=== PATIENT | female | born 1990 | race Caucasian/White ===

== ENCOUNTER 2019-08-17 17:35 | Outpatient (RCR) | payer BC, SELFPAY ==
[2019-08-04 20:42] VITALS: BP 137/84; PULSE 84
[2019-08-07 11:29] VITALS: BP 137/78; PULSE 87
[2019-08-11 11:22] VITALS: BP 130/81; PULSE 97
[2019-08-14 12:57] VITALS: BP 131/80; PULSE 89
[2019-08-17 18:20] VITALS: BP 133/84; PULSE 93
== END 2019-08-21 09:58 | disposition home or self-care (01) ==
LOC: ANHOBOP 17:35
PROVIDERS: PCP Internal Medicine; Visit Provider Student in an Organized Health Care Education/Training Program
DX: O36.8130 Decreased fetal movements, third trimester, not applicable or unspecified (principal); Z3A.36 36 weeks gestation of pregnancy; O41.03X0 Oligohydramnios, third trimester, not applicable or unspecified; Z3A.37 37 weeks gestation of pregnancy; Z3A.38 38 weeks gestation of pregnancy
CPT/HCPCS: 59025

== ENCOUNTER 2019-08-19 05:52 | Inpatient (IN) | payer BC, SELFPAY ==
--- NOTE | 2019-08-02 14:02 | PC.NURSE ---
PATIENT STATES SHE DOES NOT KNOW IF SHE IS GOING TO HAVE A REPEAT C/S OR DO . PATIENT STATES SHE IS THINKING C/S AT THIS TIME PATIENT INSTRUCTED IF SHE IS A C/S ,SHE WILL NEED TO BE IN OB 2 HOURS BEFORE HER SURGERY TIME,NOTHING TO EAT OR DRINK AFTER MIDNIGHT AND GET PRE-OP LABS DRAWN THE DAY BEFORE SURGERY
[2019-08-19] VITALS (76 sets, daily range): BP systolic 107–157; BP diastolic 51–99; PULSE 64–95; RESP 16–20; TEMP 35.9–37.1; O2SAT 96–100; BMI 37.3
--- NOTE | 2019-08-19 05:52 | LDADM ---
This patient, Norma Benítez, was admitted to Labor/Delivery/Recovery 102 on 08/19/19 at 05:52. Plans for labor, pain management and were discussed with patient. Patient/family oriented to hospital policies and general routines including ID bracelet, bed and alarms, visiting hours, pain management, procedures, bathroom and other care routines, personal items, smoking policy, room service/diet and guest tray routines, security routines, and visiting hours. Patient/Family are encouraged to report perceived risks to care and to ask questions if they do not understand what they are told or what they should do. See OBIX for further documentation.
[2019-08-19 06:49] LABS: Basophils Percent Auto 0.2 % (0.2-1.2); Eosinophils Absolute Auto 0.1 K/mm3 (0-0.3); Eosinophils Percent Auto 0.9 % (0-4.4); Hemoglobin 11.7 g/dL (12.0-15.0); Immature Granulocyte Absolute 0.07 K/mm3 (0.00-0.031); Immature Granulocyte Percent A 0.8 % (0-0.5); Lymphocytes Absolute Auto 1.96 K/mm3 (0.9-3.2); Lymphocytes Percent Auto 21.4 % (18.3-44.2); Mean Corpuscular HGB Conc 32.5 g/dl (32-36); Mean Corpuscular Hemoglobin 27.2 pg (26-34); Mean Corpuscular Volume 83.7 fl (80-100); Mean Platelet Volume 10.8 fl (7.4-10.4); Monocytes Absolute Auto 0.5 K/mm3 (0.1-0.6); Monocytes Percent Auto 5.9 % (2.6-8.5); Neutrophils Absolute Auto 6.5 K/mm3 (1.3-6.7); Neutrophils Percent Auto 70.8 % (45.5-73.1); Platelet Count Result 226 k/mm3 (150-375); Red Cell Distribution Width 14.7 % (11.5-14.5); White Blood Count 9.2 K/mm3 (4.5-10.0)
[2019-08-19] MEDS: LACTATED RINGERS 1,000 ML 125 ML IV CONT ×3 (07:00→16:58)
[2019-08-19] MEDS: OXYTOCIN 30 UNITS/NS 500 ML 30 UNITS/500 ML BAG IV CONT (07:01)
[2019-08-19 07:30] LABS: Rapid Plasma Reagin Non-Reactive (NonReactive)
--- NOTE | 2019-08-19 14:23 | PM.IMHP ---
H&P: HPI History of Present Illness Chief complaint: Induction Narrative: Norma Benítez is a 28 year old female at 39w0d who presents for IOL. Her has been complicated by CHTN on medication, oligohydramnios, and history of previous c/s. She denies LOF, regular ctx or vaginal bleeding. Review of Systems Cardiovascular: Cardiovascular: Denies chest pain, Denies leg edema, Denies palpitations, Denies dyspnea and Denies dyspnea on exertion Respiratory: Respiratory: Denies cough, Denies dyspnea and Denies dyspnea on exertion Gastrointestinal: Gastrointestinal: Denies abdominal pain, Denies constipation, Denies diarrhea, Denies nausea and Denies vomiting Genitourinary: Genitourinary: Denies hematuria, Denies urinary frequency, Denies dysuria, Denies pelvic pain, Denies urinary incontinence and Denies vaginal discharge Neurologic: Reports system reviewed and no additional complaints, except as documented Psychiatric: Psychiatric: Reports no additional psychiatric complaints Endocrine: Endocrine: Denies palpitations [facility] Family History Family History (Updated 08/02/19 @ 13:50 by Mary Barragan RN) Father FH: cholecystectomy Hypertension History of blood clots Grandparent Heart attack FH: cholecystectomy Cancer Hypertension Cerebrovascular accident Mother FH: cholecystectomy Social History Social History Years smoked: 5 Smoking status: Current every day smoker Tobacco type: cigarettes Second hand tobacco smoke exposure: Yes Alcohol intake: never Substance use: never Additional occupation/education comments: front office spec Spiritual care concerns: No Meds Home Medications and Allergies Home Medications Medication Instructions Recorded Confirmed Type labetalol 100 mg PO BID 04/26/19 08/19/19 History Allergies Allergy/AdvReac Type Severity Reaction Status Date / Time No Known Allergies Allergy Verified 08/02/19 13:45 Vital Signs Vital Signs - 24 hr 08/19/19 06:55 08/19/19 07:00 08/19/19 07:15 Temperature 36.4 C L Pulse Rate 91 86 85 Blood Pressure 156/99 H 154/93 H 155/89 H 08/19/19 07:30 08/19/19 07:45 08/19/19 08:00 Temperature Pulse Rate 91 86 86 Blood Pressure 157/96 H 148/88 H 147/90 H 08/19/19 08:15 08/19/19 08:31 08/19/19 08:46 Temperature Pulse Rate 80 78 85 Blood Pressure 154/88 H 153/82 H 144/85 H 08/19/19 09:00 08/19/19 09:15 08/19/19 09:30 Temperature Pulse Rate 85 81 90 Blood Pressure 142/89 H 142/87 H 136/73 08/19/19 09:45 08/19/19 10:00 08/19/19 10:15 Temperature 36.4 C Pulse Rate 87 79 Blood Pressure 141/85 H 146/80 H 08/19/19 10:30 08/19/19 10:45 08/19/19 11:00 Temperature Pulse Rate 80 79 82 Blood Pressure 139/80 145/85 H 146/83 H 08/19/19 11:15 08/19/19 11:30 08/19/19 11:45 Temperature Pulse Rate 84 82 81 Blood Pressure 137/82 146/83 H 145/80 H 08/19/19 12:00 08/19/19 12:15 08/19/19 12:30 Temperature Pulse Rate 80 81 83 Blood Pressure 141/81 H 141/81 H 137/84 08/19/19 12:45 08/19/19 13:00 08/19/19 13:15 Temperature 36.4 C Pulse Rate 84 84 79 Blood Pressure 145/82 H 143/76 H 140/82 Exam Const: General: no acute distress Eyes: EOM: EOMs intact bilaterally Neck: Neck: supple Thyroid: thyroid normal Chest: Breast/axilla inspection: normal inspection of the breasts Breast/axilla palpation: normal palpation of the breasts, normal palpation of the axillae and no axillary lymphadenopathy Resp: Effort & Inspection: normal respiratory effort Auscultation: clear to auscultation bilaterally Cardio: Rate: regular rate Rhythm: regular rhythm GI: Inspection: non-distended GI Palp: Yes Soft to palpation, No Tenderness to palpation present (GI) and No Guarding due to palpation present (GI) Auscultation: normal bowel sounds Other: Gravid, fundus equal to dates : General: No bladder normal to
--- NOTE | 2019-08-19 14:28 | P.PNOB_ITS ---
Pain Control Date/time seen: 08/19/19 15:52 Pain control: tolerating well Pelvic Exam Dilation (cm): 0 station: -3 Amniotic membrane status: Intact Contractions Contraction frequency: 2 Contraction pattern: Regular Status status: Category l Assessment and Plan Pitocin rate (mU/min): 20 Assessment: induction ongoing Plan: Comments: cvx remains closed after 7 hours of pitocin. patient given option of continuing induction versus elecive repeat . pt opted for repeat c- section. risks and benefits discussed with patient. pt consent to proceeding with .
--- NOTE | 2019-08-19 15:28 | WPDANESEPPF ---
Anes - Initial Pre Proc Eval Procedure: Operation Date: 08/19/19 16:30 Proposed Procedures p Section - Rodrigue Montero MD Date/Time: 08/19/19 15:28 Surgeon: Rodrigue Montero MD Pre Op Diagnosis: Induction Patient Data Age: 28 Gender: F Height: 5 ft 7 in Weight: 108 kg Last Vital Signs Temp 36.4 C 08/19/19 13:00 Pulse 79 08/19/19 13:15 BP 140/82 08/19/19 13:15 Allergies Allergy/AdvReac Type Severity Reaction Status Date / Time No Known Allergies Allergy Verified 08/02/19 13:45 Home Medications Medication Instructions Recorded Confirmed Type labetalol 100 mg PO BID 04/26/19 08/19/19 History Laboratory Tests 08/19/19 08/19/19 08/19/19 06:42 06:42 06:42 WBC 9.2 K/mm3 K/mm3 (4.5-10.0) RBC 4.30 M/mm3 M/mm3 (4.2-5.4) Hgb 11.7 g/dL L g/dL (12.0-15.0) Hct 36.0 % L % (37.0-47.0) MCV 83.7 fl fl (80-100) MCH 27.2 pg pg (26-34) MCHC 32.5 g/dl g/dl (32-36) RDW 14.7 % H % (11.5-14.5) Plt Count 226 k/mm3 k/mm3 (150-375) MPV 10.8 fl H fl (7.4-10.4) Immature Gran % (Auto) 0.8 % H % (0-0.5) Neut % (Auto) 70.8 % % (45.5-73.1) Lymph % (Auto) 21.4 % % (18.3-44.2) Dane % (Auto) 5.9 % % (2.6-8.5) Eos % (Auto) 0.9 % % (0-4.4) Baso % (Auto) 0.2 % % (0.2-1.2) Lymph # (Auto) 1.96 K/mm3 K/mm3 (0.9-3.2) Dane # (Auto) 0.5 K/mm3 K/mm3 (0.1-0.6) Eos # (Auto) 0.1 K/mm3 K/mm3 (0-0.3) Baso # (Auto) 0.0 K/mm3 K/mm3 (0.0-0.1) Abs Immat Gran (auto) 0.07 K/mm3 H K/mm3 (0.00-0.031) Absolute Neuts (auto) 6.5 K/mm3 K/mm3 (1.3-6.7) Absolute Nucleated RBC 0.0 K/mm3 K/mm3 (0.0-0.012) Nucleated RBC % 0.0 % % (0.0-0.2) RPR Non-reactive (NonReactive) Blood Type O Positive Antibody Screen Negative Patient hx anesthesia problems: none Family hx anesthesia problems: none PMFSH Past Medical History Medical History Anxiety HTN (hypertension) Surgical History Surgical History History of Hx laparoscopic cholecystectomy Family History Family History Father FH: cholecystectomy Hypertension History of blood clots Grandparent Heart attack FH: cholecystectomy Cancer Hypertension Cerebrovascular accident Mother FH: cholecystectomy Social History Social History Years smoked: 5 Smoking status: Current every day smoker Tobacco type: cigarettes Second hand tobacco smoke exposure: Yes Alcohol intake: never Substance use: never Additional occupation/education comments: desk officer Spiritual care concerns: No Anes - Eval Final PreProcedure Day of Procedure 08/19/19 15:28 Patient weight: obese Heart: regular rate and rhythm Lungs: decreased breath sounds Airway: Mallampati scale class II Neurological: alert and oriented ASA classification: III Emergent: no Anesthetic plan: proceed Anesthesia type and monitoring: regional spinal and standard monitoring Informed Consent: The patient's anesthetic plan and its attendant risks and benefits were discussed with the patient/family/POA. Questions were solicited and answers provided to the satisfaction of the patient/family/POA.
[2019-08-19] MEDS: ceFAZolin 2 GM/D5W 50 ML 2 GM/50 ML BAG IVPB (15:58)
--- NOTE | 2019-08-19 16:53 | PM.PROC ---
Procedure Note - Detailed Date of procedure: 08/19/19 Pre-op diagnosis: Induction at 39wod CHTN oligohydramnios prior c/s x1 Post-op diagnosis: same Procedure performed: repeat low transverse section Description of procedure: The patient was taken to the operating room where epidural anesthesia was found to be adequate. She was then prepped and draped in the usual sterile fashion in the dorsal supine position with a leftward tilt. A Pfannenstiel skin incision was then made with the scalpel and carried through to the underlying layer of fascia. The fascia was then incised in the midline and the incision extended laterally with the Appiah scissors. The superior aspect of the fascia was then grasped with the Julio clamps, elevated, and the underlying rectus muscles dissected off bluntly and sharply. Attention was then turned to the inferior aspect of this incision which, in a similar fashion, was grasped, tented up with the Julio clamps, and the rectus muscles dissected off both bluntly and sharply. The rectus muscles were then in the midline, and the peritoneum identified, tented up, and entered sharply with the Metzenbaum scissors. The peritoneal incision was then extended superiorly and inferiorly with good visualization of the bladder. The bladder blade was then inserted and the vesicouterine peritoneum identified, grasped with the pick-ups and entered sharply with the Metzenbaum scissors. This incision was then extended laterally and the bladder flap created digitally. The bladder blade was then reinserted and the lower uterine segment incised in a low, transverse fashion with the scalpel. The uterine incision was then extended laterally with the bandage scissors. The bladder blade was removed and the ?s head delivered atraumatically. The nose and mouth were suctioned with the bulb suction, and the remainder of the infant was delivered atraumatically. The cord was clamped and cut. The was handed off to the waiting pediatricians (staff). Cord gasses were sent. The placenta was then removed manually, the uterus exteriorized, and cleared of all clots and debris. The uterine incision was repaired with 0 vicryl in a running fashion. A second imbricating layer of 0-monocryl was used to closed the hysterotomy. The uterus was returned to the abdomen. The uterus was then reinspected to ensure hemostasis as were all subfascial tissues. The peritoneum was closed using 3-0 vicryl in a running fashion. The fascia was reapproximated with 0 vicryl in a running fashion. The incision was irrigated with a copious amound of normal saline. The subcutaneous tissue was reapproximated using 3-0 Vicryl in a running fashion. The skin was closed with 4-0 vicryl. The patient tolerated the procedure well. Sponge, lap and needle counts were correct times three. The patient was taken to the recovery room in stable condition. Anesthesia: epidural Surgeon: Rodrigue Montero MD Estimated blood loss (mL): 445 IV fluids (mL): 1,000 Urine output (mL): 50 Drains: No Packing: No Pathology: none sent Complications: No immediate complications Condition: stable Disposition: floor ( ) Findings: normal appearing uterus and fallopian tubes and ovaries bilaterally
--- NOTE | 2019-08-19 18:00 | SUR.PHASEI ---
pt complains cold and shaky. bairhugger applied. called Eufemia Jennings [employer] reported use of bairhugger. demerol order received
[2019-08-19] MEDS: MEPERIDINE HCL INJ 50 MG/ML AMPUL 12.5 MG IV PUSH (18:15)
[2019-08-19] MEDS: OXYTOCIN 30 UNITS/NS 500 ML 30 UNITS/500 ML BAG 125 UNITS IV CONT (18:15)
--- NOTE | 2019-08-19 19:25 | SUR.PHASEI ---
Pt stable and moved to PP via stretcher. Baby to stay in nursery. Report updated with Nichole Serrano on pt status and QBL. No further questions. NATE Lilly
[2019-08-19] MEDS: LABETALOL HCL 100 MG TABLET PO (20:57)
[2019-08-19] MEDS: IBUPROFEN 600 MG TABLET PO (20:57)
[2019-08-19] MEDS: DEXTROSE 5%/0.45% SOD CHL 1,000 ML 125 ML IV CONT (22:00)
[2019-08-20] VITALS (7 sets, daily range): BP systolic 110–133; BP diastolic 65–70; PULSE 70–87; RESP 16–18; TEMP 36.4–36.7; O2SAT 98–100
[2019-08-20 06:10] LABS: Basophils Percent Auto 0.2 % (0.2-1.2); Eosinophils Absolute Auto 0.1 K/mm3 (0-0.3); Eosinophils Percent Auto 0.5 % (0-4.4); Hemoglobin 10.7 g/dL (12.0-15.0); Immature Granulocyte Absolute 0.06 K/mm3 (0.00-0.031); Immature Granulocyte Percent A 0.6 % (0-0.5); Lymphocytes Absolute Auto 2.37 K/mm3 (0.9-3.2); Mean Corpuscular HGB Conc 32.4 g/dl (32-36); Mean Corpuscular Hemoglobin 27.1 pg (26-34); Mean Corpuscular Volume 83.5 fl (80-100); Mean Platelet Volume 11.1 fl (7.4-10.4); Monocytes Absolute Auto 0.7 K/mm3 (0.1-0.6); Neutrophils Absolute Auto 7.1 K/mm3 (1.3-6.7); Neutrophils Percent Auto 68.7 % (45.5-73.1); Platelet Count Result 220 k/mm3 (150-375); Red Blood Count 3.95 M/mm3 (4.2-5.4); Red Cell Distribution Width 14.3 % (11.5-14.5); White Blood Count 10.3 K/mm3 (4.5-10.0)
--- NOTE | 2019-08-20 06:58 | PM.OBPNVD ---
OB - PN: Subj Subjective Date/time seen: 08/20/19 06:58 Interval history: Patient doing well this AM. she is ambulating without difficulty. She is tolerating PO. She reports adequate pain control. Her bleeding is normal and she reports normal lochia. She denies fever, chills, N/V. She has not yet passed flatus. Patient comments: no complaints and pain well controlled; no flatus present OB - PN: Obj Data Labs CBC & Chem 7: 08/20/19 05:05 Labs: Laboratory Results - last 24 hr 08/19/19 08/19/19 08/20/19 06:42 06:42 05:05 WBC 10.3 H RBC 3.95 L Hgb 10.7 L Hct 33.0 L MCV 83.5 MCH 27.1 MCHC 32.4 RDW 14.3 Plt Count 220 MPV 11.1 H Immature Gran % (Auto) 0.6 H Neut % (Auto) 68.7 Lymph % (Auto) 23.0 [place] % (Auto) 7.0 Eos % (Auto) 0.5 Baso % (Auto) 0.2 Lymph # (Auto) 2.37 [place] # (Auto) 0.7 H Eos # (Auto) 0.1 Baso # (Auto) 0.0 Abs Immat Gran (auto) 0.06 H Absolute Neuts (auto) 7.1 H Absolute Nucleated RBC 0.0 Nucleated RBC % 0.0 RPR Non-reactive Blood Type O Positive Antibody Screen Negative OB - PN A/P Plan day: 1 Plan: routine care Comments: patient doing well this AM advance diet as tolerated H/H stable continue routine PP care plan for circumcision tomorrow Time Spent With Patient Time: Total time spent is greater than 50% in coordination of care (as documented) at patient's floor/unit and/or counseling patient: Time with patient: less than 15 minutes Review of Systems Constitutional: Constitutional: Reports no additional constitutional complaints Cardiovascular: Cardiovascular: Reports no additional cardiovascular complaints Respiratory: Respiratory: Reports no additional respiratory complaints Gastrointestinal: Gastrointestinal: Reports no additional gastrointestinal complaints Genitourinary: Genitourinary: Reports no additional female genitourinary complaints Exam Const: General: comfortable and no acute distress Resp: Effort & Inspection: normal respiratory effort Auscultation: clear to auscultation bilaterally Cardio: Rate: regular rate GI: GI Palp: Yes Soft to palpation and Yes Tenderness to palpation present (GI) (appropriately tender around incision ) Auscultation: normal bowel sounds Other: fundus firm and below umbilicus Incision C/D/I Urinary Catheter: Urinary Catheter: urine clear Psych: Appearance: grossly normal Mental Status: mental status grossly normal Affect: normal affect
--- NOTE | 2019-08-20 07:00 | PM.OBDSVD ---
DS: Diagnosis Admitting Diagnosis Admitting Diagnosis: Unspecified pre-existing hypertension complicating , unspecified trimester OB - DS: Summary OB Procedures : None OB Procedures Intrapartum: OB Procedures: : None Peripartum Data Infant Delivery Method: Section Procedures: Procedures Operation Date: 08/19/19 16:30 Actual Procedures Side Surgeon p Section Not Applicable Rodrigue Montero MD complications: none Status at Discharge Functional status at discharge: independent ambulation Overall status at discharge: patient is progressing back to baseline Time Spent with Patient Time attestation: Total time spent providing and/or coordinating discharge services: Time spent: Less than 30 minutes Exam Const: General: comfortable and no acute distress Resp: Effort & Inspection: normal respiratory effort Auscultation: clear to auscultation bilaterally Cardio: Rate: regular rate GI: Inspection: non-distended GI Palp: Yes Soft to palpation, No Firmness to palpation present (GI), Yes Tenderness to palpation present (GI) (mild tenderness over incision ) and No Guarding due to palpation present (GI) Auscultation: normal bowel sounds Psych: Appearance: grossly normal Mental Status: mental status grossly normal DS: Data Data Completed and Pending Labs on day of discharge: Labs from last 24 hours 08/20/19 08/19/19 08/19/19 05:05 06:42 06:42 WBC 10.3 H RBC 3.95 L Hgb 10.7 L Hct 33.0 L MCV 83.5 MCH 27.1 MCHC 32.4 RDW 14.3 Plt Count 220 MPV 11.1 H Immature Gran % (Auto) 0.6 H Neut % (Auto) 68.7 Lymph % (Auto) 23.0 Andrew % (Auto) 7.0 Eos % (Auto) 0.5 Baso % (Auto) 0.2 Lymph # (Auto) 2.37 Andrew # (Auto) 0.7 H Eos # (Auto) 0.1 Baso # (Auto) 0.0 Abs Immat Gran (auto) 0.06 H Absolute Neuts (auto) 7.1 H Absolute Nucleated RBC 0.0 Nucleated RBC % 0.0 RPR Non-reactive Blood Type O Positive Antibody Screen Negative Discharge Plan Discharge Attending physician on discharge: Rodrigue Montero Consulting providers: Abdiaziz Conde Discharging Clinician: Rodrigue Montero Patient Disposition: Home, Self-Care Activity: may shower, no straining, as tolerated and pelvic rest Diet: regular Discharge Instructions: Education: Mom and Baby Guide Given to: Mother Follow-Up: Call your delivering provider's office for an appointment to be seen in: 4 Weeks Mom and baby should come to the [facility] for the follow-up appointment. Appointment Date/Time: Friday, August 23, 2019 at 11:00 am What to expect at your follow-up visit: Blood Pressure Check Physical Assessment Call [phone] if you are unable to keep your appointment time. BREAST CARE: 1. Wear a snug supportive bra. 2. For engorgement discomfort: Bottle Feeding: A. May apply ice packs ABDOMINAL INCISION: (if applicable) 1. Allow incision to air dry 2. Do NOT use lotions for powders on your incision 3. When showering, allow soap and water to run over the incision, but do not wash incision EPISIOTOMY/PERINEAL CARE: 1. Until bleeding stops, use your chantelle bottle after urinating 2. Change your pad frequently throughout the day 3. You may take sitz baths several times a day (fill your bathtub with warm water and soak for 20 minutes.) Do NOT bathe in the water 4. No tub baths until seen by your physician - You may shower ACTIVITY: 1. Rest as much as possible. 2. Do not exercise or lift anything heavier than your baby (such as laundry or other children.) 3. Avoid stairs or driving as much as possible. 4. Do not put anything into the vagina. No douching, tampons, or sexual activity until seen by physician. NOTIFY PHYSICIAN IF YOU HAVE ANY QUESTIONS OR IF ANY OF THE FOLLOWING SYMPTOMS OCCUR: 1. If your incision becomes red, swollen,
[2019-08-20] MEDS: IBUPROFEN 600 MG TABLET PO ×2 (08:40→14:30)
[2019-08-20] MEDS: LABETALOL HCL 100 MG TABLET PO ×2 (08:41→21:18)
[2019-08-20] MEDS: DOCUSATE SODIUM 100 MG CAPSULE PO ×2 (08:41→14:31)
[2019-08-20] MEDS: MULTIVIT/MIN/PREN/FOL AC/IRON TABLET 1 TAB PO (08:41)
--- NOTE | 2019-08-20 11:15 | WPDANLDPN2 ---
Anes-Prog Note L&D Date/Time: 08/20/19 11:15 Comfortable throughout: section Neuraxial method: spinal Epidural/Spinal procedure site: clean & non-tender Neuro status: Neuro function grossly intact. Cardiovascular status: normal Airway patency: baseline Mental status: baseline Post-Op hydration status: normal Vital Signs: Last Vital Signs Temp 36.4 C L 08/20/19 07:55 Pulse 83 08/20/19 08:41 Resp 18 08/20/19 07:55 BP 124/70 08/20/19 07:55 Pulse Ox 99 08/20/19 07:55 Pain score (VAS): 0/10. Patient resting up to chair at time of assessment, appears comfortable. I/O: Intake & Output 08/19/19 08/20/19 08/20/19 23:59 07:59 15:59 Intake Total 1475 1865 Output Total 725 1600 Balance 750 265 Post-procedural complaints: none Patient feedback: Patient satisfied with anesthetic care.
--- NOTE | 2019-08-20 11:16 | WPDANLDNPN2 ---
Anes-Prog Note L&D-Neuraxial Date/Time: 08/20/19 11:16 Neuraxial medications: intrathecal PF morphine Opiod-related complaints: none Patient feedback: Patient satisfied with post-operative pain management.
[2019-08-21] MEDS: IBUPROFEN 600 MG TABLET PO ×4 (01:02→22:09)
--- NOTE | 2019-08-21 06:29 | P.PNOB_ITS ---
OB - PN: Subj Subjective Date/time seen: 08/21/19 06:29 Patient comments: no complaints and pain well controlled baby status: doing well and nursing well OB - PN: Obj Data Labs CBC & Chem 7: 08/20/19 05:05 OB - PN A/P Plan day: 2 Plan: routine care Time Spent With Patient Time: Total time spent is greater than 50% in coordination of care (as raudel mario) at patient's floor/unit and/or counseling patient: Time with patient: less than 15 minutes Review of Systems Review of Systems: All systems reviewed & are unremarkable except as noted in HPI and below Exam Const: General: no acute distress Eyes: General: appearance normal, both eyes and all related structures Neck: Neck: supple and no JVD Thyroid: thyroid normal Resp: Effort & Inspection: normal respiratory effort Auscultation: clear to auscultation bilaterally Cardio: Rate: regular rate Rhythm: regular rhythm GI: Inspection: incision (cdi/fundus firm) : General: Yes bladder normal to palpation External Female Exam: normal external appearance Speculum Exam - Vagina: normal vaginal discharge and No vaginal bleeding Speculum Exam - Cervix: nontender Bimanual exam- vagina & uterus: bladder normal to palpation and No Cervical tenderness present OB/external & speculum: No vaginal bleeding Skin: General skin exam: no rashes or lesions noted Extrem: General: normal to inspection and no edema Psych: Mental Status: mental status grossly normal Affect: normal affect
[2019-08-21 08:00] VITALS: BP 132/74; PULSE 84; RESP 18; TEMP 36.6; O2SAT 98
[2019-08-21 09:05] VITALS: PULSE 84
[2019-08-21] MEDS: LABETALOL HCL 100 MG TABLET PO ×2 (09:05→22:09)
[2019-08-21] MEDS: DOCUSATE SODIUM 100 MG CAPSULE PO ×2 (09:05→15:45)
--- NOTE | 2019-08-21 12:59 | PC.NURSE ---
Patient was given the opportunity to view the discharge video Mother & Baby Care, The First Two Weeks and to ask questions. Patient declined viewing the video and has been given the mother/baby guide for home reference.
[2019-08-21 20:10] VITALS: BP 141/85; PULSE 88; RESP 16; TEMP 36.7
[2019-08-21 22:09] VITALS: PULSE 88
--- NOTE | 2019-08-22 06:43 | P.DS_ITS ---
DS: Diagnosis Admitting Diagnosis Admitting Diagnosis: Unspecified pre-existing hypertension complicating pregnanc y, unspecified trimester term DS: Summary Time Spent with Patient Time attestation: Total time spent providing and/or coordinating discharge services: Exam Const: General: no acute distress Eyes: General: appearance normal, both eyes and all related structures Neck: Neck: supple and no JVD Thyroid: thyroid normal Resp: Effort & Inspection: normal respiratory effort Auscultation: clear to auscultation bilaterally Cardio: Rate: regular rate Rhythm: regular rhythm GI: Inspection: non-distended GI Palp: Yes Soft to palpation, No Tenderness to palpation present (GI) and No Guarding due to palpation present (GI) Auscultation: normal bowel sounds : General: Yes bladder normal to palpation External Female Exam: normal external appearance Speculum Exam - Vagina: normal vaginal discharge and No vaginal bleeding Speculum Exam - Cervix: nontender Bimanual exam- vagina & uterus: bladder normal to palpation and No Cervical tenderness present OB/external & speculum: No vaginal bleeding Skin: General skin exam: no rashes or lesions noted Extrem: General: normal to inspection and no edema Psych: Mental Status: mental status grossly normal Affect: normal affect Discharge Plan Discharge Attending physician on discharge: Rodrigue Montero Discharging Clinician: Rodrigue Montero Patient Disposition: Home, Self-Care Activity: may shower, no straining, as tolerated and pelvic rest Diet: regular Discharge Instructions: call or return for temperature >100.4, bleeding >2 pads/hr for 2 hrs, pain not controlled with medications, signs/symptoms of mastitis Patient Instructions: Antibiotic Form Stand Alone Forms: General Discharge Information Follow-up/Referrals: Rodrigue Montero MD [Physician] - Discharge Medications: New hydrocodone-acetaminophen 5-325 mg Tablet 1 tab PO Q3H PRN (Reason: Moderate Pain (4-6)) Qty: 30 RF: 0 docusate sodium 100 mg Capsule 100 mg PO BID Qty: 60 RF: 0 acetaminophen [Mapap (acetaminophen)] 325 mg Tablet 650 mg PO Q6H PRN (Reason: Mild Pain (1-3)) Qty: 30 RF: 0 ibuprofen 600 mg Tablet 600 mg PO Q6H PRN (Reason: Cramping) Qty: 30 RF: 0 Continued labetalol 100 mg tablet 100 mg PO BID RF: 0 Date of admission: 08/19/19 05:52 Primary Care Provider: Lisseth,Maral Admitting Provider: Rodrigue Montero Attending physician on admission: Rodrigue Montero
[2019-08-22] MEDS: IBUPROFEN 600 MG TABLET PO (07:36)
[2019-08-22 08:05] VITALS: BP 147/87; PULSE 79; RESP 18; TEMP 37.4; O2SAT 99
[2019-08-22 09:25] VITALS: PULSE 79
[2019-08-22] MEDS: DOCUSATE SODIUM 100 MG CAPSULE PO (09:25)
[2019-08-22] MEDS: LABETALOL HCL 100 MG TABLET PO (09:25)
--- NOTE | 2019-08-22 10:06 | PC.NURSE ---
Patient viewed the discharge video Mother & Baby Care, The First Two Weeks . Patient was given the opportunity and encouraged to ask questions. Patient verbalized understanding of information shared and has been given the mother/baby guide for home reference.
[2019-08-23 11:03] VITALS: BP 124/77; PULSE 93; RESP 18; TEMP 36.8
== END 2019-08-22 11:08 | disposition home or self-care (01) | DRG 787 ==
LOC: ANHOB2 08-22 10:22 → ANHLDR 08-22 20:11 → ANHOB2 08-22 20:11
PROVIDERS: Admitting Provider Student in an Organized Health Care Education/Training Program; PCP Internal Medicine; Visit Provider Obstetrics & Gynecology
PROC: 10D00Z1 Extraction of Products of Conception, Low, Open Approach (ICD-10-PCS; CPT 59514; principal; 2019-08-19 16:30)
DX: O10.92 Unspecified pre-existing hypertension complicating childbirth (principal); O41.03X0 Oligohydramnios, third trimester, not applicable or unspecified; Z37.0 Single live birth; Z3A.39 39 weeks gestation of pregnancy; O34.211 Maternal care for low transverse scar from previous cesarean delivery; O99.334 Smoking (tobacco) complicating childbirth; F17.210 Nicotine dependence, cigarettes, uncomplicated; O99.344 Other mental disorders complicating childbirth; F41.9 Anxiety disorder, unspecified; O99.214 Obesity complicating childbirth; E66.9 Obesity, unspecified
CPT/HCPCS: 36415; 85025; 86592; 86850; 86900; 86901; A9270; J0131; J0690; J2175; J2274; J2370; J2405; J2590; J7120

== ENCOUNTER 2019-09-17 20:28 | Emergency (ER) | payer BC, SELFPAY ==
[2019-09-17 20:30] VITALS: BP 156/105; PULSE 90; RESP 16; TEMP 36.6; O2SAT 100
[2019-09-17 21:41] LABS: Basophils Percent Auto 0.2 % (0.2-1.2); Eosinophils Absolute Auto 0.2 K/mm3 (0-0.3); Eosinophils Percent Auto 1.9 % (0-4.4); Hematocrit 39.4 % (37.0-47.0); Hemoglobin 12.4 g/dL (12.0-15.0); Immature Granulocyte Absolute 0.03 K/mm3 (0.00-0.031); Immature Granulocyte Percent A 0.3 % (0-0.5); Lymphocytes Absolute Auto 2.95 K/mm3 (0.9-3.2); Mean Corpuscular HGB Conc 31.5 g/dl (32-36); Mean Corpuscular Hemoglobin 26.4 pg (26-34); Mean Corpuscular Volume 83.8 fl (80-100); Mean Platelet Volume 9.9 fl (7.4-10.4); Monocytes Absolute Auto 0.5 K/mm3 (0.1-0.6); Monocytes Percent Auto 5.3 % (2.6-8.5); Neutrophils Absolute Auto 6.4 K/mm3 (1.3-6.7); Neutrophils Percent Auto 63.3 % (45.5-73.1); Platelet Count Result 352 k/mm3 (150-375); Red Cell Distribution Width 14.2 % (11.5-14.5); White Blood Count 10.2 K/mm3 (4.5-10.0)
[2019-09-17 21:51] LABS: Alanine Aminotransferase 26 U/L (4-35); Albumin Level 4.4 g/dL (3.5-5.1); Alkaline Phosphatase 112 U/L (38-126); Aspartate Amino Transferase 26 U/L (14-36); Bilirubin,Total 0.3 mg/dL (0.2-1.3); Blood Urea Nitrogen 11 mg/dL (7-17); Calcium 9.1 mg/dL (8.4-10.2); Carbon Dioxide 23 mmol/L (22-30); Chloride 106 mmol/L (98-107); Estimated CRCL calculation 113 ml/min; Estimated Glomerular Filt Rate > 60; Glucose 94 mg/dL (65-105); Potassium 4.1 mmol/L (3.4-5.0); Sodium 137 mmol/L (137-145)
[2019-09-17 22:04] LABS: Add Urine Microscopic? YES; Appearance Urine Clear (Clear); Bacteria Urine Trace /hpf; Bilirubin Urine Negative (Negative); Blood Urine 3+ (Negative); Color Urine Red (Yellow); Glucose Urine UA Negative (Negative); Ketones Urine Negative (Negative); Leukocyte Esterase Ur Negative LEU/UL (Negative); Nitrate Urine Negative (Negative); Protein Urine 2+ mg/dL (Negative); RBC Urine >75 /hpf (0-2); Specific Grav Ur 1.006 (1.001-1.035); Squamous Epithelial Cell Urine Occasional /hpf (Few); Urobilinogen Urine Negative mg/dL (<2.0); WBC Urine 0-3 /hpf
[2019-09-17 23:37] VITALS: BP 142/76; PULSE 88; RESP 16; O2SAT 97
--- NOTE | 2019-09-18 00:13 | ED.ABDPAIN ---
HPI - Abdominal Pain General Chief Complaint: Vaginal Bleeding Stated Complaint: bleeding post baby History of Present Illness HPI narrative: Patient presents with her partner for uterine bleeding. She had a 1 month ago, and had a large clot passed tonight. Since it past her bleeding has slowed down remarkably. Her OB had given her a package of control pills and told her to take 1. She credits the pill for her decreased bleeding. She currently has no distress. Related Data Home Medications Medication Instructions Recorded Confirmed labetalol 100 mg PO BID 04/26/19 08/19/19 drospirenone (contraceptive) 09/17/19 09/17/19 [Slynd] Allergies Allergy/AdvReac Type Severity Reaction Status Date / Time No Known Allergies Allergy Verified 09/17/19 20:34 Review of Systems Review of Systems: Narrative: Patient was walking out the door was unable to get a full review of systems only that she had no pain. 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 Course Vital Signs Vital signs: Vital Signs Temperature 97.9 F 09/17/19 20:30 Pulse Rate 90 09/17/19 20:30 Respiratory Rate 16 09/17/19 20:30 Blood Pressure 156/105 H 09/17/19 20:30 Pulse Oximetry 100 09/17/19 20:30 Temperature 97.9 F 09/17/19 20:30 Pulse Rate 88 09/17/19 23:37 Respiratory Rate 16 09/17/19 23:37 Blood Pressure 142/76 H 09/17/19 23:37 Pulse Oximetry 97 09/17/19 23:37 MDM - Abdominal Pain MDM Narrative Medical decision making narrative: The patient decided not to wait for a full evaluation, but I was able to meet her briefly and apologize for the delay. Lab Data Result diagrams: 09/17/19 21:32 09/17/19 21:32 Labs: Lab Results 09/17/19 09/17/19 09/17/19 Range/Units 21:32 21:32 21:32 WBC 10.2 H (4.5-10.0) K/mm3 RBC 4.70 (4.2-5.4) M/mm3 Hgb 12.4 (12.0-15.0) g/dL Hct 39.4 (37.0-47.0) % MCV 83.8 (80-100) fl MCH 26.4 (26-34) pg MCHC 31.5 L (32-36) g/dl RDW 14.2 (11.5-14.5) % Plt Count 352 D (150-375) k/mm3 MPV 9.9 (7.4-10.4) fl Immature Gran % (Auto) 0.3 (0-0.5) % Neut % (Auto) 63.3 (45.5-73.1) % Lymph % (Auto) 29.0 (18.3-44.2) % Dent % (Auto) 5.3 (2.6-8.5) % Eos % (Auto) 1.9 (0-4.4) % Baso % (Auto) 0.2 (0.2-1.2) % Lymph # (Auto) 2.95 (0.9-3.2) K/mm3 Dent # (Auto) 0.5 (0.1-0.6) K/mm3 Eos # (Auto) 0.2 (0-0.3) K/mm3 Baso # (Auto) 0.0 (0.0-0.1) K/mm3 Abs Immat Gran (auto) 0.03 (0.00-0.031) K/mm3 Absolute Neuts (auto) 6.4 (1.3-6.7) K/mm3 Absolute Nucleated RBC 0.0 (0.0-0.012) K/mm3 Nucleated RBC % 0.0 (0.0-0.2) % Sodium 137 (137-145) mmol/L Potassium 4.1 (3.4-5.0) mmol/L Chloride 106 (98-107) mmol/L Carbon Dioxide 23 (22-30) mmol/L BUN 11 (7-17) mg/dL Creatinine 0.80 (0.7-1.0) mg/dL Estim
== END 2019-09-18 00:20 | disposition left against medical advice (07) ==
PROVIDERS: Emergency Provider Emergency Medicine; PCP Internal Medicine
DX: O72.2 Delayed and secondary postpartum hemorrhage (principal); O10.93 Unspecified pre-existing hypertension complicating the puerperium; O99.335 Smoking (tobacco) complicating the puerperium; F17.210 Nicotine dependence, cigarettes, uncomplicated
CPT/HCPCS: 36415; 80053; 81001; 85025; 86850; 86900; 86901; 99283; 99284

== ENCOUNTER 2019-09-19 00:52 | Day surgery (SDC) | payer BC, SELFPAY ==
[2019-09-18 15:40] VITALS: BMI 36.3
--- NOTE | 2019-09-18 16:30 | P.HP_ITS ---
H&P: HPI History of Present Illness Chief complaint: Post Bleeding Narrative: Norma Benítez is a 28 year old female who is 4 weeks out from a section is admitted for suction D&C secondary to suspected retained clots. She has been bleeding all solid mal size clots ultrasound shows some vascular bleeding in the uterine lining. Risks and benefits were reviewed in full Review of Systems Review of Systems: All systems reviewed & are unremarkable except as noted in HPI and below PMFSH Past Medical History Medical History Anxiety HTN (hypertension) Surgical History Surgical History History of Hx laparoscopic cholecystectomy Family History Family History Father FH: cholecystectomy Hypertension History of blood clots Grandparent Heart attack FH: cholecystectomy Cancer Hypertension Cerebrovascular accident Mother FH: cholecystectomy Social History Social History Years smoked: 5 Smoking status: Current every day smoker Tobacco type: cigarettes Second hand tobacco smoke exposure: Yes Alcohol intake: never Substance use: never 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 Gender identity (if verbalized by the patient): Female Spiritual care concerns: No Meds Home Medications and Allergies Home Medications Medication Instructions Recorded Confirmed Type labetalol 100 mg PO BID 04/26/19 09/18/19 History drospirenone (contraceptive) 1 tablet PO DAILY 09/17/19 09/18/19 History [Slynd] Allergies Allergy/AdvReac Type Severity Reaction Status Date / Time No Known Allergies Allergy Verified 09/18/19 15:28 Exam Const: General: no acute distress Eyes: General: appearance normal, both eyes and all related structures Neck: Neck: supple and no JVD Thyroid: thyroid normal Resp: Effort & Inspection: normal respiratory effort Auscultation: clear to auscultation bilaterally Cardio: Rate: regular rate Rhythm: regular rhythm GI: Inspection: non-distended GI Palp: Yes Soft to palpation, No Tenderness to palpation present (GI) and No Guarding due to palpation present (GI) Auscultation: normal bowel sounds : General: Yes bladder normal to inspection External Female Exam: normal external appearance Speculum Exam - Vagina: normal appearance of the vagina and vaginal bleeding Speculum Exam - Cervix: Cervical os open Bimanual exam- vagina & uterus: non-tender Bimanual Exam- Adnexa, other: no masses Skin: General skin exam: no rashes or lesions noted Extrem: General: normal to inspection and no edema Psych: Mental Status: mental status grossly normal Affect: normal affect Assessment and Plan Additional Plan impression: bleeding: 4 weeks Plan: Suction dilatation curettage
--- NOTE | 2019-09-19 06:45 | WPDHPUPDATE1 ---
History and Physical Update Update Date/Time: 09/19/19 06:45 History and Physical has been reviewed, including an updated exam of the patient. There are NO changes in the patient's condition. Risks, benefits, and alternatives have been discussed and questions answered. Patient agrees to proceed with procedure.
[2019-09-19 10:42] VITALS: BP 139/88; PULSE 96; RESP 20; TEMP 35.9; O2SAT 100
--- NOTE | 2019-09-19 10:47 | P.PNAN_ITS ---
Anes - Initial Pre Proc Eval Procedure: Operation Date: 09/19/19 13:00 Proposed Procedures p Suction Dilation and Curettage - Palmer Khalil MD Date/Time: 09/19/19 10:47 Surgeon: Palmer Khalil MD Pre Op Diagnosis: Post Bleeding Patient Data Age: 28 Gender: F Height: 5 ft 7 in Weight: 105.23 kg Allergies Allergy/AdvReac Type Severity Reaction Status Date / Time No Known Allergies Allergy Verified 09/18/19 15:28 Home Medications Medication Instructions Recorded Confirmed Type labetalol 100 mg PO BID 04/26/19 09/18/19 History drospirenone (contraceptive) 1 tablet PO DAILY 09/17/19 09/18/19 History [Slynd] hydrocodone-acetaminophen [[place]] 1 tablet PO Q4H PRN #20 tablet 09/19/19 Rx Patient hx anesthesia problems: none Family hx anesthesia problems: none PMFSH Past Medical History Medical History (Updated 09/19/19 @ 10:47 by Abdiaziz Conde MD) Anxiety HTN (hypertension) Hx of migraines Surgical History Surgical History History of Hx laparoscopic cholecystectomy Family History Family History Father FH: cholecystectomy Hypertension History of blood clots Grandparent Heart attack FH: cholecystectomy Cancer Hypertension Cerebrovascular accident Mother FH: cholecystectomy Social History Social History Years smoked: 5 Smoking status: Current every day smoker Tobacco type: cigarettes Second hand tobacco smoke exposure: Yes Alcohol intake: never Substance use: never 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 Questions were solicited and answers provided to the satisfaction of the patient/family/POA.
[2019-09-19] MEDS: LACTATED RINGERS 1,000 ML 30 ML IV CONT (10:50)
[2019-09-19 11:20] VITALS: BP 126/75; PULSE 93; RESP 14; O2SAT 97
--- NOTE | 2019-09-19 11:24 | PM.PROC ---
Procedure Note - Detailed Date of procedure: 09/19/19 Pre-op diagnosis: Post Bleeding Surgeon: Palmer Khalil MD Postop diagnosis: bleeding Procedure: Suction dilatation curettage EBL: 50cc Anesthesia: IV sedation and local Findings: Clots and possible tissue consistent with retained placenta in a Complications: None Description of procedure: The patient was prepped draped in normal sterile fashion placed in the dorsal lithotomy position. Under excellent IV sedation weighted speculum placed in posterior fornix of vagina. Anterior lip of the cervix was grasped with a single-tooth tenaculum 2.5cc of 1% xylocaine anesthesia placed at 2, 4, 8, 10:00 a.m. in the cervix. Uterus sounded to 12cm. Serial dilatation fragmented dilators performed followed by passage of the 10. Curved suction curette. Tissue and clots were noted and removed without difficulty. When a good grating sound was heard the instruments removed. All sponge, needle, instrument counts were correct. There were no immediate complications
[2019-09-19 11:50] VITALS: BP 133/73; PULSE 83; RESP 14
[2019-09-19 12:20] VITALS: BP 136/75; PULSE 80; RESP 14
[2019-09-19 12:47] VITALS: BP 126/75; PULSE 93; RESP 14
== END 2019-09-19 12:50 | disposition home or self-care (01) ==
PROVIDERS: PCP Internal Medicine; Visit Provider Obstetrics & Gynecology
PROC: (CPT 59160; principal; 2019-09-19 13:00)
DX: O72.2 Delayed and secondary postpartum hemorrhage (principal); I10 Essential (primary) hypertension; F41.9 Anxiety disorder, unspecified; F17.210 Nicotine dependence, cigarettes, uncomplicated; E66.9 Obesity, unspecified; Z68.36 Body mass index [BMI] 36.0-36.9, adult
CPT/HCPCS: 59160; 88305; A9270; J2250; J2704; J3010; J7120

== ENCOUNTER 2019-11-17 09:56 | Outpatient (CLI) | payer BC, SELFPAY | END 2019-11-17 09:57 | disposition home or self-care (01) | PROVIDERS: PCP Internal Medicine; Visit Provider Allergy & Immunology | DX: J06.0 Acute laryngopharyngitis (principal) | CPT/HCPCS: 87081; 87880 ==

== ENCOUNTER 2020-01-15 09:59 | Outpatient (CLI) | payer BC, SELFPAY ==
[2020-01-15 10:14] LABS: Basophils Percent Auto 0.4 % (0.2-1.2); Eosinophils Absolute Auto 0.1 K/mm3 (0-0.3); Eosinophils Percent Auto 1.4 % (0-4.4); Hematocrit 42.7 % (37.0-47.0); Hemoglobin 13.6 g/dL (12.0-15.0); Immature Granulocyte Absolute 0.02 K/mm3 (0.00-0.031); Immature Granulocyte Percent A 0.2 % (0-0.5); Lymphocytes Absolute Auto 2.39 K/mm3 (0.9-3.2); Lymphocytes Percent Auto 23.2 % (18.3-44.2); Mean Corpuscular HGB Conc 31.9 g/dl (32-36); Mean Corpuscular Hemoglobin 24.2 pg (26-34); Mean Corpuscular Volume 76.1 fl (80-100); Monocytes Absolute Auto 0.5 K/mm3 (0.1-0.6); Monocytes Percent Auto 4.8 % (2.6-8.5); Neutrophils Absolute Auto 7.2 K/mm3 (1.3-6.7); Platelet Count Result 348 k/mm3 (150-375); Red Blood Count 5.61 M/mm3 (4.2-5.4); Red Cell Distribution Width 16.1 % (11.5-14.5); White Blood Count 10.3 K/mm3 (4.5-10.0)
[2020-01-15 12:36] LABS: Alanine Aminotransferase 33 U/L (4-35); Albumin Level 4.5 g/dL (3.5-5.1); Alkaline Phosphatase 144 U/L (38-126); Anion Gap 8 mmol/L (8-16); Aspartate Amino Transferase 28 U/L (14-36); Bilirubin,Total 0.7 mg/dL (0.2-1.3); Blood Urea Nitrogen 7 mg/dL (7-17); Calcium 9.5 mg/dL (8.4-10.2); Carbon Dioxide 24 mmol/L (22-30); Chloride 106 mmol/L (98-107); Estimated Glomerular Filt Rate > 60; Glucose 93 mg/dL (65-105); Potassium 4.6 mmol/L (3.4-5.0); Sodium 138 mmol/L (137-145)
[2020-01-15 13:27] LABS: Iron 56 ug/dL (37-170)
[2020-01-15 13:37] LABS: Percent Iron Saturation 11 % (20-50)
[2020-01-15 15:52] LABS: Lactate Dehydrogenase 437 U/L (313-618)
[2020-01-20 16:14] LABS: Soluble Transferrin Receptor 1.55 mg/L (0.76-1.76)
== END 2020-01-15 10:00 | disposition home or self-care (01) ==
PROVIDERS: PCP Internal Medicine; Visit Provider Internal Medicine Hematology & Oncology
DX: D64.9 Anemia, unspecified (principal)
CPT/HCPCS: 36415; 80053; 82607; 82728; 83540; 83550; 83615; 84238; 85025

== ENCOUNTER 2024-03-11 13:45 | Outpatient (CLI) | payer OTHER, SELFPAY ==
--- NOTE | ~2024-03-11 | US_ITS ---
EXAMINATION: US thyroid DATE: 03/11/2024 14:20 INDICATION: Nontoxic goiter. TECHNIQUE: Multiple ultrasound images of the thyroid were obtained. COMPARISON: None. FINDINGS: The right thyroid lobe measures 5.2 x 1.9 x 2.1 cm. The left thyroid lobe measures 4.3 x 1.7 x 1.7 c m. There is diffusely hypoechoic and heterogeneous with increased vascularity. No discrete nodule. IMPRESSION: 1. 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 Reviewed, dictated and finalized at location A. EATION ASSISTANT
== END 2024-03-11 13:46 | disposition home or self-care (01) ==
PROVIDERS: PCP Internal Medicine; Visit Provider Internal Medicine Endocrinology, Diabetes & Metabolism
DX: E04.9 Nontoxic goiter, unspecified (principal)
CPT/HCPCS: 76536

== ENCOUNTER 2024-12-12 10:47 | Outpatient (CLI) | payer BC, SELFPAY ==
--- OUTSIDE RECORDS SUMMARY | 2024-05-26 04:40 | XMS_ITS ---
Author Organization [facility] Address [address] [place] [address] Care Team Providers Care Lime Kiln Worker Name Role Phone Hannah Alamo Primary Care Provider REASON FOR VISIT 6 week f/u eva Medications Medication SIG (Take, Route, Frequency, Duration) Notes Start Date End Date Status dexAMETHasone 1 MG 1 tab(s) orally at 1 0 pm night before 8 am cortisol for 1 days 02/25/2024 Not-Taking Ergocalciferol 1.25 MG (56823 UT) 1 capsule Orally weekly for 84 days 04/21/2024 Unknown Escitalopram Oxalate 10 MG 1 tab(s) oral ly once a day Unknown Propranolol HCl 10 MG 1 tab(s) orally 2 times a day Unknown amLODIPine Besylate 5 MG 1 tab(s) orally once a day Unknown Unithroid 75 MCG 1 tablet in the morning on an empty stomach Orally Once a day for 90 days 04/21/2024 Unknown [place] Thyroid 15 MG 1 tab(s) orally onc e a day Unknown Encounters Encounter Location Date Provider Diagnosis [facility] - Hannah Alamo [address] [address] 05/26/2024 Hannah Alamo Plan Of Treatment No Information Progress Notes * Norma FERRARIDOB:1990 (34 yo F)Acc No.[id number]:05/26/2024 Progress Notes Patient: Norma YAO Provider: Toshia Alamo MD :1990 A ge:33 Y S ex:Female Date:05/26/2024 Address:[address] [place], [place] [address] Subjective: * Chief Complaints: * 1 . 6 week f/u eva. * Medical History: * Medications: N ot-Taking/PRN dexAMETHasone 1 MG Tablet 1 tab(s) orally at 10 pm night before 8 am cortisol , Unknown Propranolol HCl 10 MG Tablet 1 tab(s) orally 2 times a day , Unknown Escitalopram Oxalate 10 MG Tablet 1 tab(s) orally once a day , Unknown amLODIPine Besylate 5 MG Tablet 1 tab(s) orally once a day , Unknown [place] Thyroid(Thyroid) 15 MG Tablet 1 tab(s) orally once a day , Unknown Unithroid(Levothyroxine Sodium) 75 MCG Tablet 1 tablet in the morning on an empty stomach Orally Once a day , Unknown Ergocalciferol 1.25 MG (16403 UT) Capsule 1 capsule Orally weekly Objective: * Vitals: Assessment: Plan: * Treatment: * Billing Information: * Visit Code: * Procedure Codes: * Electronic signature of Chepe Alamo MD on 12/12/2024 at 10:56 AM CDT Sign off status: Pending * Provider: Toshia Alamo MD Date: 0 05/26/2024 Generated for Filipe vanessa/Yue/Ángel on: 0 12/12/2024 10:56 AM CDT
--- OUTSIDE RECORDS SUMMARY | 2024-06-03 08:30 | XMS_ITS ---
Author Organization [facility] Address [address] [place] [address] Care Team Providers Care Hemmer Automatic Name Role Phone Hannah Alamo Primary Care Provider [phone] REASON FOR VISIT 3 Month Follow-up Encounters Encounter Location Date Provider Diagnosis [facility] - Hannah Alamo [address] [place] [address] 06/03/2024 Hannah Alamo Plan Of Treatment No Information Progress Notes * Norma FERRARIDOB:1990 (34 yo F)Acc No.[id number]:06/03/2024 Progress Notes Patient: Norma YAO Provider: Toshia Alamo MD :1990 A ge:33 Y S ex:Female Date:06/03/2024 Address:[address] [place] [address] Subjective: * Chief Complaints: * 1 . 3 Month Follow-up. * Medical History: Objective: * Vitals: Assessment: Plan: * Treatment: * Billing Information: * Visit Code: * Procedure Codes: * Electronic signature of Chepe Alamo MD on 12/12/2024 at 10:55 AM CDT Sign off status: Pending * Provider: Toshia Alamo MD Date: 06/03/2024 Generated for Filipe vanessa/Yue/Sabaitting on: 12/12/2024 10:55 AM CDT
--- OUTSIDE RECORDS SUMMARY | 2024-08-22 09:20 | XMS_ITS ---
Author Organization [facility] Address [address], [place] [id number] Care Team Providers Care Coil Winder Strap Name Role Phone Hannah Alamo Jluis [phone] REASON FOR VISIT Fu sleep study and labs Medications Medication SIG (Take, Route, Frequency, Duration) Notes Start Date End Date Status Propranolol HCl 10 MG Tablet 1 tab(s) or ally 2 times a day Active Escitalopram Oxalate 10 MG Tablet 1 tab(s) orally once a day Active Unithroid 75 MCG Tablet 1 tablet in the morning on an empty stomach Orally Once a day; Duration: 90 days 04/21/2024 Active Ergocalciferol 1.25 MG (70840 UT) Capsule 1 capsule Orally weekly; Duration: 84 days 04/21/2024 Active Olmesartan Medoxomil 20 MG Tablet 1 tablet Orally once a day Active Encounters Encounter Location Date Provider Diagnosis [facility] Dr. Alamo [address] [place] [phone] 08/22/2024 Hannah Alamo Plan Of Treatment Next Appt Details Provider Name:Hannah Alamo, 03:20:00 PM, [address] [place] [address], [phone], History and Physical Notes * HPI (History of Present Illness) Category Sub-Category Detail Notes Category Not es History of Present Illness 33 hyo female comes in for follow up in management and evaluation of hypothyroidism, obesity/ concern for VIKY/sleep apnea found to have MTHFR mutation At last visit in June we continue unithroid 75 mcg daily. We sent for sleep study due to high BMI and snoring and need to start on weight loss management. Progress Notes * Norma FERRARIDOB:1990 (34 yo F)Acc No.[id number]:08/22/2024 Progress Notes Patient: Norma Donovan Provider: Toshia Alamo MD :1990 A ge:33 Y S ex:Female Date:08/22/2024 Address:[address] [place], [place] [address]Sharyn, [facility] [id number] Subjective: * Chief Complaints: * F u sleep study and labs * HPI: H istory of Present Illness: [age] hyo female comes in for follow up in management and evaluation of hypothyroidism, obesity/ concern for VIKY/sleep apnea found to have MTHFR mutation At last visit in June we continue unithroid 75 mcg daily. W e sent for sleep study due to high BMI and snoring and need to start on weight loss management. * Medications: T akingOlmesartan Medoxomil 20 MG Tablet 1 tablet Orally once a day Propranolol HCl 10 MG Tablet 1 tab(s) orally 2 times a day Escitalopram Oxalate 10 MG Tablet 1 tab(s) orally once a day Unithroid 75 MCG Tablet 1 tablet in the morning on an empty stomach Orally Once a day Ergocalciferol 1.25 MG (81394 UT) Capsule 1 capsule Orally weekly Taking [...] Once a day Taking Ergocalciferol 1.25 MG (71815 UT) Capsule 1 capsule Orally weekly Billing Information: * Procedure Codes: * Electronic signature of Chepe Alamo MD on 12/12/2024 at 10:56 AM CDT Sign off status: Pending * Provider: Toshia Alamo MD Date: 08/22/2024 Generated for Filipe vanessa/Yue/Ángel on: 12/12/2024 10:56 AM CDT
--- OUTSIDE RECORDS SUMMARY | 2024-09-16 10:40 | XMS_ITS ---
Author Organization [facility] Address [address] [place], [place] [id number] Care Team Providers Care Last Model Department Supervisor Name Role Phone Hannah Alamo Jluis [phone] REASON FOR VISIT Lab FU Medications Medication SIG (Take, Route, Frequency, Duration) Notes Start Date End Date Status Escitalopram Oxalate 10 MG Tablet 1 tab(s) orally once a day Active Unithroid 75 MCG Tablet 1 tablet in the morning on an empty stomach Orally Once a day; Duration: 90 days 04/21/2024 Active Propranolol HCl 10 MG Tablet 1 tab(s) or ally 2 times a day Active Olmesartan Medoxomil 20 MG Tablet 1 tablet Orally once a day Active Ergocalciferol 1.25 MG (41547 UT) Capsule 1 capsule Orally weekly; Duration: 84 days 04/21/2024 Active Encounters Encounter Location Date Provider Diagnosis [facility] Dr[facility] Alamo [address] [place] [phone] 09/16/2024 Hannah Alamo Plan Of Treatment Next Appt Details Provider Name:Hannah Alamo, 03:20:00 PM, [address] [place] [address], [phone], Progress Notes * Norma FERRARIDOB:1990 (34 yo F)Acc No.[id number]:09/16/2024 Progress Notes Patient: Norma Donovan Provider: Toshia Alamo MD :1990 A ge:33 Y S ex:Female Date:09/16/2024 Address:[address] [place], [place] [id number] Subjective: * Chief Complaints: * L ab FU * Medications: T akingOlmesartan Medoxomil 20 MG Tablet 1 tablet Orally once a day Propranolol HCl 10 MG Tablet 1 tab(s) orally 2 times a day Escitalopram Oxalate 10 MG Tablet 1 tab(s) orally once a day Unithroid 75 MCG Tablet 1 tablet in the morning on an empty stomach Orally Once a day Ergocalciferol 1.25 MG (79310 UT) Capsule 1 capsule Orally weekly Taking [...] Once a day Taking Ergocalciferol 1.25 MG (98172 UT) Capsule 1 capsule Orally weekly * Electronic signature of Chepe Alamo MD on 12/12/2024 at 10:56 AM CDT Sign off status: Pending * Provider: Toshia Alamo MD Date: 0 09/16/2024 Generated for Filipe vanessa/Yue/Ángel on: 0 12/12/2024 10:56 AM CDT
--- OUTSIDE RECORDS SUMMARY | 2024-12-12 10:55 | XMS_ITS | Clinical Summary ---
Author Organization [facility] Address [address] [place] [address] Phone Care Team Providers Care Drug Abuse Social Worker Name Role Phone Maral Montanez MD Primary Care Provider Allergies No known active allergies Medications labetalol (NORMODYNE) 100 mg tablet labetalol 100 mg tablet 9 Active SUMAtriptan (IMITREX) 100 mg tablet sumatriptan 100 mg tablet prn up to 3 tabs in a 24 hour perioud Active doxylamine-pyr idoxine, vit B6, (BONJESTA) 20-20 mg Tab,IR & Delay Rel,Multiphasi c Take 1 Tablet by mouth 2 times daily. 60 Tablet 3 9 Active atorvastatin (LIPITOR) 40 mg tablet every 24 hours. Acti ve ergocalciferol (VITAMIN D2) 50,000 unit capsule ergocalciferol (vitamin D2) 1,250 mcg (50,000 unit) capsule Take 1 capsule WEEKLY for 8 weeks Active ALPRAZolam (XANAX) 0.25 mg tablet alprazolam 0.25 mg tablet TK 1 T PO TID PRN Active ondansetron (ZOFRAN) 4 mg Tablet ondansetron HCl 4 mg tablet PRN Active Active Problems Problem Noted Date Diagnosed Date Microcytic anemia 02/06/2020 Other dietary vitamin B12 deficiency anemia 01/21 Blood pressure, low, incidental finding 09/11/19 19 Immunizations Immunization Administration Dates Next Due (ADACEL/BOOSTRIX)(10 YR UP) TDAP VACCINE, 0.5ML, IM 01/28/2016 INFLUENZA VACCINE QUADRIVALENT 6 MOS UP IM 02/07 INFLUENZA VACCINE QUADRIVALENT 6 MOS UP PF IM Family History Medical History Relation Name Comments Hypertension Father Lung Cancer Maternal Grandfather Prostate Cancer Maternal Grandfather Dementia Maternal Grandmother Healthy Mother Lung Cancer Paternal Grandfather Prostate Cancer Paternal Grandfather Lung Cancer Paternal Grandmother Healthy Son Gerardo Breast Cancer Neg Hx Colon Cancer Neg Hx Ovarian Cancer Neg Hx Relation Name Status Comments Father Alive Maternal Grandfather Maternal Grandmother Alive Mother Alive Paternal Grandfather Paternal Grandmother Son Gerardo Alive Social History Tobacco Use Types Packs/Day Years Used Date Smoking Tobacco: Former Cigarettes 0.5 10 0 12/23/2008 - 12/23/2018 Smokeless Tobacco: Never Alcohol Use Standard Drinks/Week Comments Not Currently 0 (1 standard drink = 0.6 oz pur e alcohol) Comments No Sex and Gender Information Value Date Recorded Sex Assigned at Not on file Legal Sex Female 9:07 AM CDT Gender Identity Not on file Sexual Orientation Not on file Last Filed Vital Signs Vital Sign Reading Time Taken Comments Blood Pressure 124/80 01/15/2020 9:20 AM CDT Pulse 95 01/15/2020 9:20 AM CDT Temperature 36.7 C (98 F) 02/06/2020 9:38 AM CDT Respiratory Rate 22 02/06/2020 9:38 AM CDT Oxygen Saturation 98% 01/15/2020 9:20 AM CDT Inhaled Oxygen Concentration - - Weight 111.2 kg (245 lb 1.6 oz) 01/15/2020 9:20 AM CDT Height 168.9 cm (5' 6.5) 02/06/2020 9:38 AM CDT Body Mass Index 38.97 01/15/2020 9:20 AM CDT Plan of Treatment Health Maintenance Due Date Last Done Comments HPV VACCINES (1 - 3-dose series) 2004 HEPATITIS B VACCINES (1 of 3 - 19+ 3-dose series) 2008 HPV/Cotest (21-29) 2010 HPV/Cotest (30-65) 11/17/2019 CERVICAL CANCER SCREENING 01/06/2022 PAP SMEAR 01/06/2022 01/06/2019 INFLUENZA VACCINE (#1) 2024 01/06/2019, 2017 DTAP/TDAP/TD VACCINES (2 - Td or Tdap) 01/27/2026 Procedures Procedure Name Priority Date/Time Associated Diagnosis Comments CERV/VAG CYTO AGE BASED SCREEN PAP W CT/NG, TRICH Routine 01/06/2019 11:07 AM CDT Well woman exam with routine gynecological exam from Last 3 Months or Most Recently Relevant to Health Maintenance Results * CERV/VAG CYTO AGE BASED SCREEN PAP W CT/NG, TRICH (01/06/2019 11:07 AM CDT) COMMENT (PAP): SEE COMMENT 9 10:22 AM CDT [facility] Comment: This order for age-based cervical cancer and STI screening follows ACOG guidelines(PB 168, 140, ZFU926). See individual assays for performing site location. CLINICAL INFORMATION 01/09/2019 10:22 AM CDT [facility] LAST MENSTRUAL PERIOD Information not provided 01/09/2019 10:22 AM CDT [facility] PREV PAP: Information not provided 01/09/2019 10:22 AM CDT [facility] PREV BX: Information not provided 01/09/2019 10:22 AM CDT [facility] SOURCE Endocervix 01/09/2019 10:22 AM CDT [facility] ADEQUACY: SEE COMMENT 01/09/2019 10:22 AM CDT [facility] Comment: Satisfactory for evaluation. Endocervical/transformation zone component absent. PAP INTERP Negative for intraepithelial lesion or malignancy. 01/09/2019 10:22 AM CDT [facility] CYTOLOGY INFECTION Shift in vaginal mary suggestive of bacterial vaginosis. 01/09/2019 10:22 AM CDT [facility] COMMENT This Pap test has been evaluated with computer assisted technology. 01/09/2019 10:22 AM CDT [facility] COMMERCIAL DEVELOPMENT MANAGER: SEE COMMENT 2018 10:22 AM CDT [facility] Comment: MATT RAY(ASCP) CT screening location: [place] [address] [place], [place] [address] EXPLANATORY NOTE SEE COMMENT 019 10:22 AM CDT [facility] Comment: EXPLANATORY NOTE: The Pap is a screening test for cervical cancer. It is not a diagnostic test and is subject to false negative and false positive results. It is most reliable when a satisfactory sample, regularly obtained, is submitted with relevant clinical findings and history, and when the Pap result is evaluated along with historic and current clinical information. Genital SWAB OF ENDOCERVIX / Unknown Collection / Unknown 01/06/2019 11:07 AM CDT 01/06/2019 3:33 PM CDT Narrative [facility] - 01/09/2019 10:22 AM CDT Performing Organization Information: Site ID: [id number] Name[facility] Address: [address] [address] Director: Ezequiel Rivera D.O., MPH Site ID: [place] [facility] Address: [address] [place] [address] Director: Darren Guaman Min Wagner MD PATHOLOGY/CYTOLOGY ORDERABLE S Final Result [facility] [phone] from Last 3 Months or Most Recently Relevant to Health Maintenance Insurance PREFERRED Care Teams Drug Abuse Social Worker Relationship Specialty Start Date End Date Maral Montanez MD PCP - General Internal Medicine 01/15/20
--- OUTSIDE RECORDS SUMMARY | 2024-12-12 10:55 | XMS_ITS | Clinical Summary ---
Author Organization [facility] Address [address] [place] [address] Care Team Providers Care Gettering Operator Name Role Phone Ronald Renee MD Unavailable [phone] Source Comments [facility],non-owned Affiliates and Associated Physician Practices is amultiple site organization consisting of ambulatory clinics and hospital sitesin [place], [place], [place] and [place]. This disclosure is being madepursuant to the Care Everywhere program and may not contain all information available regarding this patient. Last updated 18.[facility] Allergies Active Allergy Reactions Criticality Noted Date Comments Succinylcholine Other 02/11/2016 Reports that she had all over boy pain for week after Medications * Be aware that medications may not be up to date on this document. Alwaysverify current medications with the patient. labetalol (NORMODYNE; TRANDATE) 200 MG tablet Take 1.5 Tabs by mouth 2 times daily 90 Tab 02/16/2016 Active fluticasone propionate (FLONASE) 50 MCG/ACT nasal sprayIndication s:Acute non-recurrent maxillary sinusitis [place] 2 sprays into each nostril once daily 1 bottles 03/19/2018 Active Active Problems No known active problems Immunizations Immunization Administration Dates Next Due TDAP (7yrs+) 01/28/2016 Family History Medical History Relation Name Comments Hypertension Father Twins Maternal Aunt Labor Mother Cancer Paternal Grandfather Cancer Paternal Grandmother Relation Name Status Comments Father Alive Maternal Aunt Mother Alive Paternal Grandfather Paternal Grandmother Social History Tobacco Use Types Packs/Day Years Used Date Smoking Tobacco: Former Cigarettes Q uit: 06/22/2015 Smokeless Tobacco: Never Alcohol Use Standard Drinks/Week Comments No 0 (1 standard drink = 0.6 oz pur e alcohol) Comments No Sex and Gender Information Value Date Recorded Sex Assigned at Not on file Legal Sex Female 10:17 AM CDT Gender Identity Not on file Sexual Orientation Not on file Last Filed Vital Signs Vital Sign Reading Time Taken Comments Blood Pressure 110/68 03/19/2018 11:58 AM DISTRICT WIRE CHIEF Pulse 76 03/19/2018 11:58 AM DISTRICT WIRE CHIEF Temperature 36.8 C (98.2 F) 03/19/2018 11:58 AM DISTRICT WIRE CHIEF Respiratory Rate 16 03/19/2018 11:58 AM DISTRICT WIRE CHIEF Oxygen Saturation 98% 03/19/2018 11:58 AM DISTRICT WIRE CHIEF Inhaled Oxygen Concentration - - Weight 105.7 kg (233 lb) 03/19/2018 11:58 AM DISTRICT WIRE CHIEF Height 170.2 cm (5' 7) 03/19/2018 11:58 AM DISTRICT WIRE CHIEF Body Mass Index 36.49 03/19/2018 11:58 AM DISTRICT WIRE CHIEF Plan of Treatment Health Maintenance Due Date Last Done Comments HIV SCREENING 2004 HEPATITIS C SCREENING 11/12/2007 HEPATITIS B VACCINE (1 of 3 - 19+ 3-dose series) 2008 HPV VACCINE (1 - 3-dose SCDM series) 2016 COVID-19 VACCINE (1 - 2023-2 5 season) 2023 DEPRESSION SCREENING 04/23/2024 INFLUENZA VACCINE (#1) 2024 DTAP/TDAP/TD VACCINES (2 - T d or Tdap) 01/27/2026 01/28/2016 ZOSTER VACCINE (1 of 2) 11/17/2039 HIB VACCINE Aged Out No longer eligi ble based on patient's age to complete this topic MENINGOCOCCAL (Group B) VACC INE SHARED DECISION-MAKING Aged Out No longer eligibl e based on patient's age to complete this topic MENINGOCOCCAL GROUPS A/C/Y/W VACCINE Aged Out No longer eligible b ased on patient's age to complete this topic PNEUMOCOCCAL VACCINE Aged Out No long er eligible based on patient's age to complete this topic Insurance [facility] [place] [address] * Guarantor: NORMA FERRARI Account Type Relation to Patient Date of Phone Billing Address Personal/Family 1990 [facility], [id number] [place] [address] ON LICENSE OF [facility] Advance Directives * Full Code (Latest Code Status on File) Date Activated Date Inactivated Comments 02/11/2016 7:55 PM 02/14/2016 2:23 PM * Full Code Date Activated Date Inactivated Comments 02/11/2016 1:03 PM 02/11/2016 7:55 PM * Full Code Date Activated Date Inactivated Comments 01/22/2016 9:15 PM 01/22/2016 11:05 PM Care Teams Gettering Operator Relationship Specialty Start Date End Date Ronald Renee MD [address] [place] [address] Gynecology 08/13/15
--- OUTSIDE RECORDS SUMMARY | 2024-12-12 10:56 | XMS_ITS | Patient Health Record ---
Author Organization [facility] Address [address] [facility] [place] [id number] Care Team Providers Care Expressive Art Therapist Name Role Phone Hannah Alamo Unavailable [phone] Migration, Provider Unavailable Unavailable Allergies No Known Allergies Reason For Referral No Information Medications Medication SIG (Take, Route, Frequency, Duration) Notes Start Date End Date Status Unithroid 125 MCG Tablet 1 tablet in the morning on an empty stomach Orally Once a day; Duration: 90 days 11/21/2024 Active Unithroid 75 MCG Tablet 1 tablet in the morning on an empty stomach Orally Once a day; Duration: 90 days 04/21/2024 Active Ergocalciferol 1.25 MG (5000 0 UT) Capsule 1 capsule Orally weekly; Duration: 84 days 04/21/2024 Active Levothyroxine Sodium 125 MCG Tablet 1 tablet in the morning on an empty stomach Orally Once a day; Duration: 90 days 12/01/2024 Active Vitamin D (Ergocalciferol) 1.25 MG (47985 UT) Capsule TAKE 1 CAPSULE BY MOUTH WEEKLY.; Duration: 84 Active Escitalopram Oxalate 10 MG Tablet 1 tab(s) orally once a day Active Liothyronine Sodium 5 MCG Tablet 1 tablet on an empty stomach Orally Once a day; Duration: 90 days 11/21/2024 Active Olmesartan Medoxomil 20 MG Tablet 1 tablet Orally once a day Active Ergocalciferol 1.25 MG (5000 0 UT) Capsule 1 capsule Orally weekly; Duration: 90 days 11/21/2024 Active Propranolol HCl 10 MG Tablet 1 tab(s) or ally 2 times a day Active dexAMETHasone 1 MG Tablet 1 tablet Orall y at 10 pm night before 8 am cortisol; Duration: 1 days 11/21/2024 Active Lisdexamfetamine Dimesylate 20 MG Capsule 1 capsule in the morning Orally Once a day Active Social History Social History Additional Details Category Social Info Options Details Migrated Social History Migrated Social History (Alcohol:):no (Recreational drug use:):no (Smoking:):yes Patient is a: Current Smoker vapes daily, smoker since 2009 Section Notes: caffeine: yes caffeine: yes caffeine: yes caffeine: yes Problems Problem Type SNOMED Code ICD Code Onset Dates Problem Status W/U Status Risk Notes Problem Hypothyroidism (96957121) Hypothyroidism, unspecified (E03.9) Active confirmed Problem 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, 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 confirmed Problem Vitamin D deficiency (78210010) Vitamin D deficiency, unspecified (E55.9) Active confirmed Problem Obesity (181335721) Obesity, unspecified (E66.9) Active confirmed Problem Irregular menstruation (69013092) Irregular menstruation, unspecified (N92.6) Active confirmed Problem Obstructive sleep apnea (22445354) Obstructive sleep apnea (G47.33) Active confirmed Vital Signs Heart Rate 86 /min 11/21/2024 Oximetry 97 % 06/03/2024 Blood pressure diastolic 84 mm Hg 11/21/2024 Weight-kg 128.01 kg 11/21/2024 Height 68 in 11/21/2024 Blood pressure systolic 123 mm Hg 11/21/2024 Weight 282.2 lbs 11/21/2024 BMI 42.9 kg/m2 11/21/2024 Encounters Encounter Location Date Provider Diagnosis [address] [phone] 03/08/2024 Provider Migration Obesity, unspecified E66.[address] Alamo [address] [place] [address] 05/26/[address] Alamo [address] [place] [address] 02/25/2024 Hannah Alamo Hypothyroidism, unspecified E03.9 ; Obesity, unspecified E66.9 ; Dietary counseling and surveillance Z71.3 ; Irregular menstruation, unspecified N92.6 ; Other fatigue R53.83 and Nontoxic goiter, unspecified E04.[address] Alamo [address] [place] [address] 04/21/2024 Hannah Alamo Hypothyroidism, unspecified E03.9 ; Obesity, unspecified E66.9 ; Vitamin D deficiency, unspecified E55.9 ; Vitamin B12 deficiency anemia, unspecified D51.9 and Dietary counseling and surveillance Z71.[address] Alamo [address] [place] [phone] 06/03/2024 Hannah Alamo Hypothyroidism, unspecified E03.9 ; Obesity, unspecified E66.9 ; Obstructive sleep apnea G47.33 and Dietary counseling and surveillance Z71.[address] Alamo [address] [place] [phone] 11/21/2024 Hannah Alamo Hypothyroidism, unspecified E03.9 ; Vitamin D deficiency, unspecified E55.9 ; Obesity, unspecified E66.9 and Dietary counseling and surveillance Z71.[address] [address] 04/20/20[address] [address] 06/17/2024 [address] Alamo [address] [address] 08/21/2024 Hannah Alamo [address] [address] 11/21/2024 Hannah Alamo Hypothyroidism, unspecified E03.9 ; Vitamin D deficiency, unspecified E55.9 and Obesity, unspecified E66.[address] Alamo [address] [place] [phone] 12/01/2024 Hannah Alamo Assessments Encounter Date Diagnosis (ICD Code) Assessment Notes Treatment Notes Treatment Clinical Notes Section Notes 02/25/2024 Hypothyroidism, unspecified (ICD-10 - E03.9) 02/25/2024 Obesity, unspecified (ICD-10 - E66.9) 03/08/2024 Obesity, unspecified (ICD-10 - E66.9) 04/21/2024 Hypothyroidism, unspecified (ICD-10 - E03.9) 04/21/2024 Obesity, unspecified (ICD-10 - E66.9) 06/03/2024 Hypothyroidism, unspecified (ICD-10 - E03.9) 06/03/2024 Obesity, unspecified (ICD-10 - E66.9) 11/21/2024 Hypothyroidism, unspecified (ICD-10 - E03.9) 11/21/2024 Hypothyroidism, unspecified (ICD-10 - E03.9) 11/21/2024 Vitamin D deficiency, unspecified (ICD-10 - E55.9) 02/25/2024 Dietary counseling and surveillance (ICD-10 - Z71.3) 06/03/2024 Obstructive sleep apnea (ICD-10 - G47.33) 11/21/2024 Vitamin D deficiency, unspecified (ICD-10 - E55.9) 04/21/2024 Vitamin D deficiency, unspecified (ICD-10 - E55.9) 04/21/2024 Vitamin B12 deficiency anemia, unspecified (ICD-10 - D51.9) 02/25/2024 Irregular menstruation, unspecified (ICD-10 - N92.6) 11/21/2024 Obesity, unspecified (ICD-10 - E66.9) 11/21/2024 Obesity, unspecified (ICD-10 - E66.9) 11/21/2024 Dietary counseling and surveillance (ICD-10 - Z71.3) Spent 15 minutes preventative counseling patient on dietary recommendations and changes in setting of hyperglycemia- need to restrict refined sugars and processed foods and incorporate up to 150 minutes of moderate level activity weekly. 06/03/2024 Dietary counseling and surveillance (ICD-10 - Z71.3) Spent 15 minutes preventative counseling patient on dietary recommendations and changes in setting of hyperglycemia- need to restrict refined sugars and processed foods and incorporate up to 150 minutes of moderate level activity weekly. 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 2. Palpitations:- Monitor symptoms and report any changes or worsening.- Consider adjusting thyroid medication dosage if palpitations persist. 3. Weight gain:- Encourage a balanced diet focusing on fruits, vegetables, lean meats, and reducing gluten and starch.- Provide a list of recommended foods.- Monitor weight changes and consider further evaluation if no improvement. 4. Insomnia and anxiety:- Encourage maintaining a consistent sleep schedule and practicing good sleep hygiene.- Consider referral to a mental health professional if anxiety persists or worsens. 5. Menstrual irregularities and bleeding:- Continue using Mirena IUD.- Monitor for any changes in bleeding patterns.- Consider alternative control options if bleeding issues persist. 6. Hair loss and acne:- Monitor symptoms and report any changes or worsening.- Consider dermatology referral if no improvement. 7. Bruising and keratosis:- Monitor for any changes in skin condition.- Consider dermatology referral if no improvement. 8. Glucose and cortisol levels:- Order fasting glucose and cortisol tests.- Provide instructions for dexamethasone suppression test.- Evaluate results and consider further evaluation if abnormal. 9. Diet and nutrition:- Encourage a balanced diet focusing on fruits, vegetables, lean meats, and reducing gluten and starch.- Provide a list of recommended foods.- Monitor for any changes in symptoms or overall health. Follow-up in 4-6 weeks to assess response to treatment and any changes in symptoms. Spent 45 minutes preparing to see the patient (ex review of tests/chart), obtaining and / or reviewing separately obtained history, performing a medically appropriate examination and/or evaluation, counseling and educating the patient/family/caregiver, ordering medications, tests, or procedures, referring and communicating with other health career placement specialist, documenting clinical information in the electronic or other health record, independently interpreting results and communicating results to the patient/family/caregiver and care coordinating patient plan. Patient alert and oriented x 4 and aware of discussion noted above and in agreeance to plan in management of hypothyroidism, obesity, irregular cycles, fatigue and goiter. 04/21/2024 Other Assessment and Plan: 1. Hypothyroidism- T4: 0.8 (low), TSH: 15 (high)- Plan: Start Unithroid 75 mcg every other day, then daily after one week. Repeat thyroid panel in 4 weeks. Monitor every 4-6 weeks until stabilized. 2. Vitamin D deficiency- Vitamin D: very low- Plan: Prescribe once-a-week vitamin D supplement. Recheck levels in 6 weeks. 3. Vitamin B12 and folic acid deficiency- B12 and folic acid: very low- Plan: Recommend methylated B12 and folic acid supplement (available in-office or [facility]). Recheck levels in 6 weeks. 4. Possible MTHFR mutation- Plan: Test for MTHFR mutation. If positive, consider aspirin and low-dose statin therapy. Check cholesterol levels. 5. Inflammation- Sed rate and CRP: positive- Plan: Monitor inflammatory markers. Consider further evaluation if no improvement with thyroid treatment. 6. Borderline DEXA level- DEXA: 1.3 (borderline)- Plan: Additional testing to ensure bone health. 7. Sleep apnea risk- Family history and reported snoring- Plan: Monitor for symptoms and consider sleep study if necessary. 8. Diet and lifestyle- Plan: Encourage clean diet, avoiding processed foods and gluten. Provide food list. Reevaluate in 6 weeks. 9. Cortisol testing- ACTH: 14 (pending)- Plan: Perform cortisol saliva test after 3 weeks on Unithroid. Consider adrenal imaging if cortisol levels are high. 10. Ultrasound results- Plan: Obtain ultrasound results from [place]. Follow-up: Schedule a follow-up appointment in 6 weeks. Spent 25 minutes preparing to see the patient (ex review of tests/chart), obtaining and / or reviewing separately obtained history, performing a medically appropriate examination and/or evaluation, counseling and educating the patient/family/caregiver, ordering medications, tests, or procedures, referring and communicating with other health career placement specialist, documenting clinical information in the electronic or other health record, independently interpreting results and communicating results to the patient/family/caregiver and care coordinating patient plan. Patient alert and oriented x 4 and aware of discussion noted above and in agreeance to plan in management of hypothyroidism, obesity, weight management, B12/folate def and vit D def. Spent 15 minutes preventative counseling patient on dietary recommendations and changes in setting of hyperglycemia- need to restrict refined sugars and processed foods and incorporate up to 150 minutes of moderate level activity weekly. Spent 15 minutes preventative counseling patient on dietary recommendations and changes in setting of hyperglycemia- need to restrict refined sugars and processed foods and incorporate up to 150 minutes of moderate level activity weekly. 06/03/2024 Other Assessment and Plan: HypothyroidismPatient's free T4 level has shown improvement from 0.7 to 1.0, yet remains below the desired target of 1.2. The current Synthroid dosage of 75 mcg is deemed insufficient.Increase Synthroid dosage to 100 mcg.Continue supplementation with B12, folic acid, and weekly vitamin D.Schedule thyroid function tests to be repeated in 6 weeks.Arrange a follow-up appointment in 2 months to evaluate progress and adjust treatment as necessary. ObesityAwaiting insurance decision regarding Zepbound for weight loss. Contrave is under consideration as an alternative pending Zepbound's insurance coverage.Order a sleep study to assess for sleep apnea, which may influence insurance approval for Zepbound.Recommend a diet high in protein (80-90g/day) and fiber, focusing on fruits, vegetables, and beans, and advise against the regular intake of bread and starch.Encourage the patient to maintain a high water intake of 4-5 large cups daily.If Zepbound is approved, provide patient education on hydration and dietary adjustments to mitigate gastrointestinal side effects. HypertensionTransition from amlodipine to olmesartan 20 mg daily for blood pressure management has been made.Continue with the prescribed olmesartan dosage.Blood pressure monitoring will be conducted during follow-up visits to assess the effectiveness of the new medication regimen. Suspected Sleep ApneaPatient's has reported snoring, and recent lab results indicate a level of 1.3, suggesting possible minimally autonomous cortisol hypersecretion, which may be linked to sleep apnea.Proceed with ordering a sleep study.Await sleep study results to inform further management decisions and potentially support insurance coverage for weight loss medication. Spent 25 minutes preparing to see the patient (ex review of tests/chart), obtaining and / or reviewing separately obtained history, performing a medically appropriate examination and/or evaluation, counseling and educating the patient/family/caregiver, ordering medications, tests, or procedures, referring and communicating with other health career placement specialist, documenting clinical information in the electronic or other health record, independently interpreting results and communicating results to the patient/family/caregiver and care coordinating patient plan. Patient alert and oriented x 4 and aware of discussion noted above and in agreeance to plan in management of hypothyroidism, obesity/ weight management and concern for VIKY. 11/21/2024 Rigoberto Green, a female patient with a history of hypothyroidism and recent weight gain, presents with concerns about fatigue, physical functioning, and potential gluten sensitivity. HypothyroidismAssessment: Patient is currently on Unithroid 100 mcg daily. Recent labs from October show TSH levels are suboptimal, with the goal being closer to 1.2-1.4. T3 levels were also noted to be low. Patient reports ongoing fatigue and difficulty with physical functioning, which may be related to suboptimal thyroid hormone levels.Plan:- Increase Unithroid to 125 mcg PO daily- Consider adding low-dose T3 therapy as adjunct treatment- Follow up on thyroid function tests after medication adjustment ObesityAssessment: Patient's current weight is 281 lbs, with recent fluctuations noted. Patient reports difficulty with weight management and has been trying to reduce gluten intake and increase water consumption. Recent cholesterol results were reported as a little high. Patient is currently taking Vyvanse, which has helped with some symptoms but may affect appetite.Plan:- Encourage continuation of gluten-free diet and increased water intake- Consider prescribing Zepbound or Wegovy for weight management, pending insurance coverage and further evaluation of fatty liver disease- Recommend ultrasound to evaluate for fatty liver disease- Continue Vyvanse as prescribed (dose not specified)- Encourage regular exercise as tolerated Vitamin D DeficiencyAssessment: Patient reports taking vitamin D supplements but sometimes forgets. Current dosing regimen is weekly, but patient expresses difficulty maintaining consistency.Plan:- Refill vitamin D prescription (weekly dosing)- Educate patient on importance of consistent dosing schedule Suspected HypercortisolismAssessmen t: Previous cortisol tests (overnight swab and 24-hour urine) were borderline. Patient has not completed the oral cortisol suppression test. There is consideration for reassessing cortisol levels, potentially in relation to weight management difficulties.Plan:- Consider scheduling oral cortisol suppression test after hysterectomy to avoid hormone fluctuations- Reassess need for cortisol tiffany based on test results Gynecological IssuesAssessment: Patient reports recent gynecological evaluation revealing freestanding fluid in the uterus, not related to infection. A hysterectomy is being considered due to family history of hormonal breast cancer and desire to discontinue hormonal control (current IUD with progesterone).Plan:- Await scheduling of hysterectomy- Coordinate with geoint analyst regarding timing of procedure and post-operative hormone management Spent 25 minutes preparing to see the patient (ex review of tests/chart), obtaining and / or reviewing separately obtained history, performing a medically appropriate examination and/or evaluation, counseling and educating the patient/family/caregiver, ordering medications, tests, or procedures, referring and communicating with other health career placement specialist, documenting clinical information in the electronic or other health record, independently interpreting results and communicating results to the patient/family/caregiver and care coordinating patient plan. Patient alert and oriented x 4 and aware of discussion noted above and in agreeance to plan in management of hypothyroidism, vit D def, obesity/weight management. Plan Of Treatment Pending Test Test Name Order Date Sleep Study [facility] [id number] 06/03/2024 ultrasound thyroid 02/25/2024 Next Appt Details Provider Name:Hannah Alamo, 03:20:00 PM, [address] [place] [address], [phone], Insurance Providers Payer Name Payer Address Payer Phone Subscriber Number Group Number Insured Name Patient Relationship to Insured Coverage Start Date Coverage End Date [facility] [facility] [address] [place] [address] [id number] Norma Benítez Self - patient is the insured Medical (General) History Medical History History ICD Code hypertension general anxiety depression Surgical History Surgery Date(Month/Year) cholecystectomy 2016 Hospitalization History Reason Date(Month/Year) 2015 2019
--- OUTSIDE RECORDS SUMMARY | 2024-12-12 10:56 | XMS_ITS | Clinical Summary ---
Author Organization [facility] Address [address] [place] [address] Phone Care Team Providers Care Electric Mule Operator Name Role Phone Maral Montanez MD Primary Care Provider Allergies No known active allergies Medications amLODIPine (NORVASC) 10 MG Tablet Take 10 mg by mouth daily. Active Social History Tobacco Use Types Packs/Day Years Used Date Smoking Tobacco: Every Day Cigarettes Smokeless Tobacco: Never Alcohol Use Standard Drinks/Week Comments Never 0 (1 standard drink = 0.6 oz pur e alcohol) Comments Unknown Sex and Gender Information Value Date Recorded Sex Assigned at Not on file Legal Sex Female 7:21 PM CDT Gender Identity Not on file Sexual Orientation Not on file Last Filed Vital Signs Vital Sign Reading Time Taken Comments Blood Pressure 139/93 08/06/2020 10:11 PM CDT Pulse 86 08/06/2020 10:11 PM CDT Temperature 36.7 C (98 F) 08/06/2020 7:24 PM CDT Respiratory Rate 18 08/06/2020 10:11 PM CDT Oxygen Saturation 96% 08/06/2020 10:11 PM CDT Inhaled Oxygen Concentration - - Weight 110.2 kg (243 lb) 08/06/2020 7:24 PM CDT Height 165.1 cm (5' 5) 08/06/2020 7:24 PM CDT Body Mass Index 40.44 08/06/2020 7:24 PM CDT Plan of Treatment Health Maintenance Due Date Last Done Comments Hepatitis C Virus (HCV) Screening 1989 TdaP Immunization 1989 Hepatitis B Immunization (1 of 3 - 19+ 3-dose series) 2008 Pap Smear 2010 Human Papillomavirus (HPV) Immunization (1 - 3-dose SCDM series) 2016 Cervical Cancer Screening (CCS) 11/17/2019 HPV/Cotest 11/17/2019 SARS-COV-2 Immunization ( - season) 2023 05/27/2020, 04/29/2020 Influenza Immunization (#1) 12/22/202401/21, 02/07/2018 Respiratory Syncytial Virus (RSV) Immunization (Adult) (1 - 1-dose 75+ series) 2064 Meningococcal Immunization (ACWY) Aged Out No longer eligible b ased on patient's age to complete this topic Pneumococcal Immunization Combined Aged Out No longer eligible b ased on patient's age to complete this topic Rotavirus Immunization Aged Out No lo nger eligible based on patient's age to complete this topic Insurance [employer]ICA Care Teams Electric Mule Operator Relationship Specialty Start Date End Date Maral Montanez MD [address] [place] [address] [place] [phone] PCP - General Internal Medicine 08/06/20
--- OUTSIDE RECORDS SUMMARY | 2024-12-12 10:57 | XMS_ITS | Encounter Summary ---
Author Organization [facility] Address [address] [place] [address] Care Team Providers Care Clear Coat Sprayer Name Role Phone Bryanna Castro NP Primary Care Provider [phone] Encounter Details Date Type Department Care Team (Late st Contact Info) Description 08/04/2024 MyChart Message Enc [facility] Multispecialty Care - [place] [address] [place] [address] Bryanna Castro NP [address] [place] [address] Sleep Study Social History Tobacco Use Types Packs/Day Years Used Date Smoking Tobacco: Never Passive Smoke Exposure: Never Smokeless Tobacco: Never Alcohol Use Standard Drinks/Week Comments Yes 0 (1 standard drink = 0.6 oz pur e alcohol) socially PHQ-2 Answer Date Recorded Patient Health Questionnaire-2 Score 1 08/07/2024 Comments No Sex and Gender Information Value Date Recorded Sex Assigned at Female 06/02/2024 8:28 AM BRUSH PAINTER Legal Sex Female 9:13 PM CDT Gender Identity Female 06/02/2024 8:28 AM BRUSH PAINTER Sexual Orientation Straight 06/02/2024 8: 28 AM BRUSH PAINTER documented as of this encounter Functional Status * Over the past 2 weeks, how often have you been bothered by any of the following problems? Question Answer Date of Assessment Author Status Little interest or pleasure in doing things Several days 08/07/2024 11:15 AM CDT Parisa Tafoya MA Act carlos Feeling down, depressed, or hopeless Not at all 08/07/2024 11:15 AM Parisa Farley MA Active Patient Health Questionnaire-2 Score 1 08/07/2024 11:15 AM Parisa Farley MA Active * Question Answer Date of Assessment Author Status Trouble falling or staying asleep, or sleeping too much Nearly every day 08/07/2024 11:15 AM Parisa Farley MA Active Feeling tired or having little energy More than half the days 08/07/2024 11:15 AM Parisa Farley MA Active Poor appetite or overeating Nearly every day 08/07/2024 11:15 AM Parisa Farley MA Active Feeling bad about yourself - or that you are a failure or have let yourself or your family down Several days 08/07/2024 11:15 AM Parisa Farley MA Active Trouble concentrating on things, such as reading the newspaper or watching television Not at all 08/07/2024 11:15 AM Parisa Farley MA Active Moving or speaking so slowly that other people could have noticed? Or the opposite - being so fidgety or restless that you have been moving around a lot more than usual. Not at all 08/07/2024 11:15 AM Parisa Farley MA Active Thoughts that you would be better off or hurting yourself in some way Not at all 08/07/2024 11:15 AM Parisa Farley MA Active Patient Health Questionnaire-9 Score 10 08/07/2024 11:15 AM Parisa Farley MA Active * If you checked off any problems on this questionnaire so far, Question Answer Date of Assessment Author Status How difficult have these problems made it for you to do your work, take care of things at home, or get along with other people? Somewhat difficult 08/07/2024 11:15 AM Parisa Farley MA Active * Over the last 2 weeks, how often have you been bothered by any of the following problems? Question Answer Date of Assessment Author Status Feeling nervous, anxious, or on edge 0 08/07/2024 11:16 AM Parisa Farley MA Act carlos Not being able to stop or control worrying 0 08/07/2024 11:16 AM CDT Parisa Tafoya MA Ac tive Worrying too much about different things 0 08/07/2024 11:16 AM Parisa Farley MA Ac tive Trouble relaxing 0 08/07/2024 11:16 AM Parisa Farley MA Active Being so restless that it is hard to sit still 1 08/07/2024 11:16 AM Parisa Farley M A Active Becoming easily annoyed or irritable 3 08/07/2024 11:16 AM Parisa Farley MA Act carlos Feeling afraid as if something awful might happen 0 08/07/2024 11:16 AM Parisa Farley MA Act carlos HAWA-7 Total Score 4 08/07/2024 11:16 AM Parisa Farley MA Active documented as of this encounter Plan of Treatment Upcoming Encounters Date Type Department Care Team (Late st Contact Info) Description 02/23/2025 1:20 PM BRUSH PAINTER Office Visit [facility] Multispecialty Care [place] [address] [place] [address] Bryanna Castro NP [address] [place] [address] documented as of this encounter Visit Diagnoses Not on filedocumented in this encounter Care Teams Clear Coat Sprayer Relationship Specialty Start Date End Date Bryanna Castro NP [address] [place] [address] PCP - General NURSE PRACTITIONER 01/21/24 documented as of this encounter
--- OUTSIDE RECORDS SUMMARY | 2024-12-12 10:57 | XMS_ITS | Clinical Summary ---
Author Organization [facility] [address] Address [facility] [place] [address] Care Team Providers Care Awning Craftsperson Name Role Phone Goldy Mclaughlin MD Primary Care Provider + Palmer Pereira MD Unavailable [phone] Allergies Active Allergy Reactions Criticality Noted Date Comments Succinylcholine Nausea & Vomiting Low 02/11/2016 Reports that she had all over boy pain for week after Medications ALPRAZolam (XANAX) 0.25 mg tablet alprazolam 0.25 mg tablet TK 1 T PO TID PRN Active amLODIPine (NORVASC) 10 mg tablet Take 1 tablet (10 mg total) by mouth daily 2 Active atomoxetine (STRATTERA) 25 mg capsule atomoxetine 25 mg capsule Active atorvastatin (LIPITOR) 40 mg tablet atorvastatin 40 mg tablet TAKE 1 TABLET BY MOUTH EVERY DAY Active doxylamine-pyr idoxine, vit B6, 20-20 mg tablet,IR & delay rel,biphasic Take 1 tablet by mouth 2 (two) times a day 9 Active ergocalciferol (VITAMIN D) 50,000 unit capsule ergocalciferol (vitamin D2) 1,250 mcg (50,000 unit) capsule Take 1 capsule WEEKLY for 8 weeks Active fluticasone propionate (FLONASE) 50 mcg/actuation nasal spray Administer 2 sprays into affected nostril(s) daily 8 Active labetaloL (NORMODYNE,TRA NDATE) 200 mg tablet Take 300 mg by mouth 2 (two) times a day 6 Active Vyvanse 40 mg capsule Take 1 capsule (40 mg total) by mouth daily 2 Active ondansetron (ZOFRAN) 4 mg tablet ondansetron HCl 4 mg tablet PRN Active SUMAtriptan (IMITREX) 100 mg tablet sumatriptan 100 mg tablet prn up to 3 tabs in a 24 hour perioud 0 Active Active Problems Problem Noted Date Diagnosed Date Microcytic anemia 02/06/2020 Other dietary vitamin B12 deficiency anemia 01/21 Hypertension 09/25/2018 Migraine 09/25/2018 Obesity 09/25/2018 Tobacco dependence syndrome 09/25/2018 Blood pressure, low, incidental finding 09/11/19 19 Social History Tobacco Use Types Packs/Day Years Used Date Smoking Tobacco: Never Smokeless Tobacco: Never Tobacco Cessation:Counseling Given: Not Answered Personal Safety Answer Date Recorded Have you ever been in or are you currently in a harmful physical or emotional relationship or is someone making you feel afraid or unsafe? Denies 10/20/2023 Comments Unknown Sex and Gender Information Value Date Recorded Sex Assigned at Not on file Legal Sex Female 10:33 AM CDT Gender Identity Not on file Sexual Orientation Not on file Obstetrics History Last Filed Vital Signs Vital Sign Reading Time Taken Comments Blood Pressure 136/87 10/20/2023 12:51 AM CDT Pulse 88 10/20/2023 12:51 AM CDT Temperature 36.4 C (97.5 F) 10/20/2023 12:51 AM CDT Respiratory Rate 16 10/20/2023 12:51 AM CDT Oxygen Saturation 99% 10/20/2023 12:51 AM CDT Inhaled Oxygen Concentration - - Weight 117.9 kg (260 lb) 10/20/2023 12:51 AM CDT Height 170.2 cm (5' 7) 10/20/2023 12:51 AM CDT Body Mass Index 40.72 10/20/2023 12:51 AM CDT Plan of Treatment Health Maintenance Due Date Last Done Comments Cervical Cancer Screening 1989 Depression Screening 1989 Hepatitis C Screening 1989 Varicella Vaccines (1 of 2 - 13+ 2-dose series) 2002 Hepatitis B Screening 11/17/2007 Regular Well Visit/Exam 18-64 11/17/2007 HPV Vaccines (1 - 3-dose SCD M series) 2016 Covid-19 Vaccine (2023-2 5 season) 2023 05/27/2020, 04/29/2020 Influenza Vaccine (#1) 2024 9, 01/06/2019, 02/07/2018 DTaP/Tdap/Td Vaccine (2 - Td or Tdap) 01/27/2026 01/28/2016 Pneumococcal vaccine <65 Aged Out No longer eligible based on patient's age to complete this topic Insurance [facility]PPO Address: [address] [address] [facility] Address: [address] [address] [place] [address] Care Teams Awning Craftsperson Relationship Specialty Start Date End Date Goldy Mclaughlin MD [address] [address] PCP - General Internal Medicine 02/18/22 Palmer Pereira MD [address] [place] [address] 02/18/22
--- OUTSIDE RECORDS SUMMARY | 2024-12-12 10:57 | XMS_ITS | Patient Health Record ---
Author Organization [facility] Address [address] [address] Care Team Providers Care Coin Machine Supervisor Name Role Phone Hannah Alamo Primary Care Provider [phone] Migration, Provider Unavailable Unavailable Reason For Referral No Information Medications Medication SIG (Take, Route, Frequency, Duration) Notes Start Date End Date Status dexAMETHasone 1 MG 1 tab(s) orally at 1 0 pm night before 8 am cortisol for 1 days 02/25/2024 Not-Taking Unithroid 75 MCG 1 tablet in the morning on an empty stomach Orally Once a day for 90 days 04/21/2024 Unknown Ergocalciferol 1.25 MG (54380 UT) 1 capsule Orally weekly for 84 days 04/21/2024 Unknown Escitalopram Oxalate 10 MG 1 tab(s) oral ly once a day Unknown Propranolol HCl 10 MG 1 tab(s) orally 2 times a day Unknown [employer] Thyroid 15 MG 1 tab(s) orally onc e a day Unknown amLODIPine Besylate 5 MG 1 tab(s) orally once a day Unknown Social History Tobacco Use: Social History Observation Description Date Details (start date - stop date) Current Smoker NA - NA Smoking: Question Answer Notes Patient is a: Current Smoker vapes daily, smo ker since 2009 Section Notes: caffeine: yes caffeine: yes Problems Problem Type SNOMED Code ICD Code Onset Dates Problem Status W/U Status Risk Notes Problem Vitamin D deficiency (14672136) Vitamin D deficiency, unspecified (E55.9) Active confirmed Problem Hypothyroidism (14383024) Hypothyroidism, unspecified (E03.9) Active confirmed Problem Obesity (888318921) Obesity, unspecified (E66.9) Active confirmed Problem 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 [employer] [facility] [address] [place] [address] 04/21/2024 Hannah Alamo Hypothyroidism, unspecified E03.9 ; Obesity, unspecified E66.9 ; Vitamin D deficiency, unspecified E55.9 ; Vitamin B12 deficiency anemia, unspecified D51.9 and Dietary counseling and surveillance Z71.3 [facility] [employer] [facility] [place] [address] 06/03/2024 Hannah Alamo [address] [address] 03/08/2024 Provider Migration Obesity, unspecified E66.9 [facility] [employer] [facility] [address] [place] [address] 02/25/2024 Hannah Alamo Hypothyroidism, unspecified E03.9 ; Obesity, unspecified E66.9 ; Dietary counseling and surveillance Z71.3 ; Irregular menstruation, unspecified N92.6 ; Other fatigue R53.83 and Nontoxic goiter, unspecified E04.[address] [facility] [address] [place] [address] 04/20/2024 Hannah Alamo Assessments Encounter Date Diagnosis (ICD Code) Assessment Notes Treatment Notes Treatment Clinical Notes Section Notes 04/21/2024 Hypothyroidism, unspecified (ICD-10 - E03.9) 04/21/2024 Obesity, unspecified (ICD-10 - E66.9) 03/08/2024 Obesity, unspecified (ICD-10 - E66.9) 02/25/2024 Hypothyroidism, unspecified (ICD-10 - E03.9) 02/25/2024 Obesity, unspecified (ICD-10 - E66.9) 04/21/2024 Vitamin D deficiency, unspecified (ICD-10 - E55.9) 02/25/2024 Dietary counseling and surveillance (ICD-10 - Z71.3) 04/21/2024 Vitamin B12 deficiency anemia, unspecified (ICD-10 - D51.9) 02/25/2024 Irregular menstruation, unspecified (ICD-10 - N92.6) 02/25/2024 Other fatigue (ICD-10 - R53.83) 04/21/2024 Dietary counseling and surveillance (ICD-10 - Z71.3) 02/25/2024 Nontoxic goiter, unspecified (ICD-10 - E04.9) 02/25/2024 Other Assessment and Plan: 1. Pradip's Thyroiditis:- Continue [employer] Thyroid as prescribed.- Schedule thyroid ultrasound to [...] examination and/or evaluation, counseling and educating the patient/family/care attendant, ordering medications, tests, or procedures, referring and communicating with other health patient care director, documenting clinical information in the electronic or other health record, independently interpreting results and communicating results to the patient/family/care attendant and care coordinating patient plan. Patient alert [...] Ultrasound results- Plan: Obtain ultrasound results from [place]. Follow-up: Schedule a follow-up appointment in 6 weeks. Spent 25 minutes preparing to see the patient (ex review of tests/chart), obtaining and / or reviewing separately obtained history, performing a medically appropriate examination and/or evaluation, counseling and educating the patient/family/care attendant, ordering medications, tests, or procedures, referring and communicating with other health patient care director, documenting clinical information in the electronic or other health record, independently interpreting results and communicating results to the patient/family/care attendant and care coordinating patient plan. Patient alert [...] 150 minutes of moderate level activity weekly. Plan Of Treatment Pending Test Test Name Order Date ultrasound thyroid 02/25/2024 Medical (General) History Surgical History Surgery Date(Month/Year) cholecystectomy 2016 Hospitalization History Reason Date(Month/Year) 2015 2019
--- OUTSIDE RECORDS SUMMARY | 2024-12-12 10:57 | XMS_ITS | Encounter Summary ---
Author Organization [facility] Address [address] [place] [address] Care Team Providers Care Bulb Brander Name Role Phone Bryanna Castro NP Primary Care Provider [phone] Encounter Details Date Type Department Care Team (Late st Contact Info) Description 02/07/2024 [facility] Electronic Materialshart Message Enc [facility] Multispecialty [facility] - [address] [place] [address] Bryanna Castro, ASSISTANT PRODUCT MANAGER [address] [facility] [address] [place] [address] Propranolol Social History Tobacco Use Types Packs/Day Years Used Date Smoking Tobacco: Never Passive Smoke Exposure: Never Smokeless Tobacco: Never Alcohol Use Standard Drinks/Week Comments Yes 0 (1 standard drink = 0.6 oz pur e alcohol) socially Comments No Sex and Gender Information Value Date Recorded Sex Assigned at Female 06/02/2024 8:28 AM JANITORIAL SERVICES SUPERVISOR Legal Sex Female 9:13 PM CDT Gender Identity Female 06/02/2024 8:28 AM JANITORIAL SERVICES SUPERVISOR Sexual Orientation Straight 06/02/2024 8: 28 AM JANITORIAL SERVICES SUPERVISOR documented as of this encounter Plan of Treatment Upcoming Encounters Date Type Department Care Team (Late st Contact Info) Description 02/23/2025 1:20 PM JANITORIAL SERVICES SUPERVISOR Office Visit [facility] Medical [facility] Multispecialty Care - [place] [address] [place] [address] Bryanna Castro, ASSISTANT PRODUCT MANAGER [address] [facility] [address] [place], [place] [id number] documented as of this encounter Visit Diagnoses Not on filedocumented in this encounter Care Teams Bulb Brander Relationship Specialty Start Date End Date Bryanna Castro, ASSISTANT PRODUCT MANAGER [address] [facility] [address] [place] [address] PCP - General NURSE PRACTITIONER 01/21/24 documented as of this encounter
--- OUTSIDE RECORDS SUMMARY | 2024-12-12 10:57 | XMS_ITS | Encounter Summary ---
Author Organization [facility] Address [address] [place] [address] Care Team Providers Care Boiler Fireman Name Role Phone Bryanna Castro NP Primary Care Provider [phone] Encounter Details Date Type Department Care Team (Latest Contact Info) Description 03/14/2024 CareView Communicationshart Message [facility] - [address] [place], [place] [id number] Bryanna Castro, VICE PRESIDENT INVESTOR RELATIONS [address] [place], [place] [id number] Cortisol Test Results Social History Tobacco Use Types Packs/Day Years Used Date Smoking Tobacco: Never Passive Smoke Exposure: Never Smokeless Tobacco: Never Alcohol Use Standard Drinks/Week Comments Yes 0 (1 standard drink = 0.6 oz pur e alcohol) socially Comments No Sex and Gender Information Value Date Recorded Sex Assigned at Female 06/02/2024 8:28 AM LOW PRESSURE KETTLE OPERATOR Legal Sex Female 9:13 PM CDT Gender Identity Female 06/02/2024 8:28 AM LOW PRESSURE KETTLE OPERATOR Sexual Orientation Straight 06/02/2024 8: 28 AM LOW PRESSURE KETTLE OPERATOR documented as of this encounter Plan of Treatment Upcoming Encounters Date Type Department Care Team (Late st Contact Info) Description 02/23/2025 1:20 PM LOW PRESSURE KETTLE OPERATOR [facility] [place] [address] [place], [place] [phone] Bryanna Castro, VICE PRESIDENT INVESTOR RELATIONS [address] [place], [place] [id number] documented as of this encounter Visit Diagnoses Not on filedocumented in this encounter Care Teams Boiler Fireman Relationship Specialty Start Date End Date Bryanna Castro, VICE PRESIDENT INVESTOR RELATIONS [address] [facility] [address] [place] [address] PCP - General NURSE PRACTITIONER 01/21/24 documented as of this encounter
--- OUTSIDE RECORDS SUMMARY | 2024-12-12 10:57 | XMS_ITS | Clinical Summary ---
Author Organization [facility] Address [facility] [address] Care Team Providers Care Civil Structural Engineer Name Role Phone Bryanna Castro NP Primary Care Provider [phone] Allergies No known active allergies Medications vitamin B-12 (CYANOCOBALAMIN ) (CYANOCOBALAMIN ) 1000 mcg tablet Take 1 tablet (1,000 mcg total) by mouth daily. 06/02/19 25 Active folic acid (FOLVITE) 1 MG tablet Take 1 tablet (1 mg total) by mouth daily. 06/02/19 25 Active vitamin D2, ergocalciferol, (DRISDOL) 1.25 mg capsule Take 1 capsule (50,000 Units total) by mouth every 7 days. 06/02/19 25 Active loratadine (CLARITIN) 10 MG tabletIndicatio ns:Allergic rhinitis, unspecified seasonality, unspecified trigger Take 1 tablet (10 mg total) by mouth daily. 30 tablet 2 07/15/19 25 Active hydrOXYzine (ATARAX) 25 MG tabletIndicatio ns:HAWA (generalized anxiety disorder) TAKE 1 TABLET BY MOUTH THREE TIMES DAILY NEEDED FOR ANXIETY 30 tablet 09/23/19 25 Active clotrimazole-be tamethasone (LOTRISONE) creamIndication s:Candidal intertrigo Apply topically 2 (two) times daily as needed. 45 g 1 11/11/19 25 Active lisdexamfetamin e (VYVANSE) 20 MG capsuleIndicati ons:Mild binge-eating disorder Take 1 capsule (20 mg total) by mouth every morning. 30 capsule 12/09/19 25 Active olmesartan (BENICAR) 20 MG tabletIndicatio ns:Benign essential hypertension Take 1 tablet (20 mg total) by mouth daily. 90 tablet 1 12/09/19 25 Active escitalopram (LEXAPRO) 20 MG tabletIndicatio ns:HAWA (generalized anxiety disorder) Take 1 tablet (20 mg total) by mouth daily. 90 tablet 1 12/09/19 25 Active levothyroxine (SYNTHROID) 125 MCG tablet Take 1 tablet (125 mcg total) by mouth every morning. 12/09/19 25 Active levothyroxine (SYNTHROID) 100 MCG tablet Take 1 tablet (100 mcg total) by mouth every morning. 025 Discontinued escitalopram (LEXAPRO) 20 MG tabletIndicatio ns:HAWA (generalized anxiety disorder) Take 1 tablet (20 mg total) by mouth daily. 90 tablet 1 09/04/19 25 025 Discontinued(Re order) olmesartan (BENICAR) 20 MG tabletIndicatio ns:Benign essential hypertension Take 1 tablet by mouth once daily 30 tablet 10/04/19 25 025 Discontinued lisdexamfetamin e (VYVANSE) 20 MG capsuleIndicati ons:Mild binge-eating disorder Take 1 capsule (20 mg total) by mouth every morning. 30 capsule 11/11/19 25 025 Discontinued(Re order) olmesartan (BENICAR) 20 MG tabletIndicatio ns:Benign essential hypertension Take 1 tablet by mouth once daily 30 tablet 11/16/19 25 025 Discontinued(Re order) Active Problems Problem Noted Date Diagnosed Date Vitamin D deficiency 06/02/2024 Folate deficiency 06/02/2024 B12 deficiency 06/02/2024 Positive GEORGE (antinuclear antibody) 06/02/2024 Class 3 severe obesity with serious comorbidity and body mass index (BMI) of 45.0 to 49.9 in adult, unspecified obesity type 06/02/2024 Benign essential hypertension 01/30/2024 Major depressive disorder wi th single episode, in full remission 01/30/2024 HAWA (generalized anxiety disorder) 01/30/2024 Palpitations 01/30/2024 Pradip's thyroiditis 01/30/2024 Encounters Date Type Department Care Team Description 12/08/2024 12:00 PM CDT Telemedicine [facility] [place] [address] [facility] [address] [place] [address] Bryanna Castro, LEA Follow Up (4 week follow up); Medication; Blood Pressure 12/08/2024 Travel 11/11/2024 Results Follow-Up [place] [address] [facility] [address] [place] [address] Bryanna Castro, FISHERIES ENFORCEMENT OFFICER HEMOGLOBIN, GLYCOSYLATED, THYROID STIM HORMONE TSH, VITAMIN D, 25 OH, Additional followed-up results: 9 11/10/2024 8:00 AM CDT Office Visit [place] [address] [facility] [address] [place] [address] Bryanna Castro, LEA Physical 11/10/2024 - 11/10/2024 11:59 PM CDT Hospital Encounter [facility]-[address] [address] Bryanna Castro, LEA Discharge Disposition: Home or Self Care (Routine Discharge) 11/10/2024 Travel 10/15/2024 12:20 PM CDT Telemedicine [place] [address] [facility] [address] [place] [address] Bryanna Castro, LEA Weight Check 10/15/2024 Travel from Last 3 Months Immunizations Immunization Administration Dates Next Due Influenza Adult (Generic) 02/08/2019,01/06/2019, 02/07/2018 Tdap (Generic) 01/28/2016 Family History Medical History Relation Comments Anxiety Father Depression Father Hypertension Father Cervical cancer Maternal Grandmother Dementia Maternal Grandmother Lung Cancer Maternal Grandmother Anxiety Mother Breast Cancer Mother Depression Mother Lung Cancer Paternal Grandfather Prostate Cancer Paternal Grandfather Stroke Paternal Grandfather Lung Cancer Paternal Grandmother Relation Status Comments Father Alive Maternal Grandfather Maternal Grandmother Mother Alive Paternal Grandfather Paternal Grandmother Social History Tobacco Use Types Packs/Day Years Used Date Smoking Tobacco: Never Passive Smoke Exposure: Never Smokeless Tobacco: Never Tobacco Cessation:Counseling Given: No Alcohol Use Standard Drinks/Week Comments Yes 0 (1 standard drink = 0.6 oz pur e alcohol) socially PHQ-2 Answer Date Recorded Patient Health Questionnaire-2 Score 0 10/15/2024 Comments No Sex and Gender Information Value Date Recorded Sex Assigned at Female 06/02/2024 8:28 AM SCALEHOUSE ATTENDANT Legal Sex Female 9:13 PM CDT Gender Identity Female 06/02/2024 8:28 AM SCALEHOUSE ATTENDANT Sexual Orientation Straight 06/02/2024 8: 28 AM SCALEHOUSE ATTENDANT Last Filed Vital Signs Vital Sign Reading Time Taken Comments Blood Pressure 130/80 12/08/2024 11:23 AM CDT av erage Pulse 85 11/10/2024 7:41 AM CDT Temperature 36.6 C (97.8 F) 11/10/2024 7:41 AM CDT Respiratory Rate 18 11/10/2024 7:41 AM CDT Oxygen Saturation 96% 11/10/2024 7:41 AM CDT Inhaled Oxygen Concentration - - Weight 124.3 kg (274 lb) 12/08/2024 11:23 AM CDT Height 170.2 cm (5' 7) 11/10/2024 7:41 AM CDT Body Mass Index 42.91 11/10/2024 7:41 AM CDT Plan of Treatment Upcoming Encounters Date Type Department Care Team (Late st Contact Info) Description 02/23/2025 1:20 PM SCALEHOUSE ATTENDANT Office Visit [facility] [place] [address] [facility] [address] [place] [address] Bryanna Castro, FISHERIES ENFORCEMENT OFFICER [address] [facility] [address] [place] [address] Health Maintenance Due Date Last Done Comments Kidney Health Evaluation 1989 Hepatitis B Vaccines (1 of 3 - 19+ 3-dose series) 2008 Pneumococcal Vaccine: Pediatrics (0 to 5 Years) and At-Risk Patients (6 to 49 Years) (1 of 2 - PCV) 2008 HPV Vaccines (1 - 3-dose SCD M series) 2016 Cervical Cancer Screening Pa p with HPV Testing (Age 30 to 64) Every 5 Years 11/17/2019 01/06/2019 Cervical Cancer Screening Pa p Smear (Age 30 to 64) Every 3 Years 01/06/2022 01/06/2019 Cervical Cancer Screening with HPV 01/06/2022 COVID-19 Vaccine (3 - 2023-2 5 season) 2023 05/27/2020, 04/29/2020 Hemoglobin A1C 05/13/2025 11/10/2024, 03/05/2024, 12/08/2016 Annual Physical 11/10/2025 11/10/2024 Lipid Panel 11/10/2025 11/10/2024, 12/08/2016 DTaP, Tdap and Td Vaccines ( 2 - Td or Tdap) 01/27/2026 01/28/2016 Diabetes: Retinopathy Eye Exam 07/21/2084 Postponed from 11/16 (Patient Refused) Hepatitis C Completed 02/06/2024 PHQ-2 (Physician Ruby) Completed 10/15/2024 Meningococcal B Vaccine Aged Out No l onger eligible based on patient's age to complete this topic Meningococcal Vaccine Aged Out No bessy adriano eligible based on patient's age to complete this topic RSV Immunizations Under 20 Months Aged Out No longer eligible b ased on patient's age to complete this topic Procedures Procedure Name Priority Date/Time Associated Diagnosis Comments MG/PCCL UDS SCREEN Routine 11/10/2024 8: 25 AM CDT Controlled substance agreement signed ACTH Routine 11/10/2024 8:23 AM CDT Class 3 severe obesity with serious comorbidity and body mass index (BMI) of 45.0 to 49.9 in adult, unspecified obesity type (CMS/HCC) Pradip's thyroiditis DHEA-SULFATE Routine 11/10/2024 8:23 AM CDT Class 3 severe obesity with serious comorbidity and body mass index (BMI) of 45.0 to 49.9 in adult, unspecified obesity type (CMS/HCC) Pradip's thyroiditis CORTISOL, TOTAL Routine 11/10/2024 8:23 AM CDT Class 3 severe obesity with serious comorbidity and body mass index (BMI) of 45.0 to 49.9 in adult, unspecified obesity type (CMS/HCC) Pradip's thyroiditis CBC W/DIFF AUTOMATED Routine 11/10/2024 8:23 AM CDT Annual physical exam THYROXINE, FREE (FT4) Routine 11/10/2024 8:23 AM CDT Annual physical exam Pradip's thyroiditis FREE T3 Routine 11/10/2024 8:23 AM CDT Annual physical exam Pradip's thyroiditis COMPREHENSIVE METABOLIC PANEL Routine 11/10/2024 8:23 AM CDT Annual physical exam LIPID PANEL Routine 11/10/2024 8:23 AM CDT Annual physical exam VITAMIN D, 25 OH Routine 11/10/2024 8:23 AM CDT Vitamin D deficiency THYROID STIM HORMONE TSH Routine 11/10/2024 8:23 AM CDT Pradip's thyroiditis HEMOGLOBIN, GLYCOSYLATED Routine 11/10/2024 8:23 AM CDT Screening for diabetes mellitus HEPATITIS C ANTIBODY Routine 02/06/2024 7:13 AM CDT Need for hepatitis C screening test from Last 3 Months or Most Recently Relevant to Health Maintenance Results * MG/PCCL UDS SCREEN (11/10/2024 8:25 AM CDT) FENTANYL SCREEN (U) NEGATIVE <0.5 ng/mL [facility] [address] Comment: See Note A See Note A MORPHINE (U) NEGATIVE <10 ng/mL [facility] [address] Comment: See Note A See Note A AMPHETAMINES PM NEGATIVE <500 ng/mL [facility] [address] [facility] Comment: See Note A See Note A BARBITURATES PM (U) NEGATIVE <300 ng/mL [facility] [address] [facility] Comment: See Note A See Note A BENZODIAZEPINES PM (U) NEGATIVE <100 ng/mL [facility] [address] Comment: See Note A See Note A COCAINE METABOLITE PM (U) NEGATIVE <150 ng/mL [facility] [address] Comment: See Note A See Note A MARIJUANA METABOLITE PM (U) NEGATIVE <20 ng/mL [facility] [place] Comment: See Note A See Note A METHADONE PM (U) NEGATIVE <100 ng/mL [facility] [place] [place] Comment: See Note A See Note A OPIATES PM (U) NEGATIVE <100 ng/mL [facility] [place] Comment: See Note A See Note A OXYCODONE PM (U) NEGATIVE <100 ng/mL [facility] [place] Comment: See Note A See Note A CREATININE RANDOM (U) 168.8 > or = 20.0 mg/dL [facility] [place] pH PM (U) 5.3 4.5 - 9.0 [facility] [place] OXIDANT NEGATIVE <200 mcg/mL [facility] [place] NOTE [facility] Comment: This drug testing is for medical treatment only. Analysis was performed as non-forensic testing and these results should be used only by healthcare providers to render diagnosis or treatment, or to monitor progress of medical conditions. Note A: The results are presumptive; based only on screening methods, and they have not been confirmed by a definitive method. LDT Notes: Confirmation tests were developed and their analytical performance characteristics have been determined by [employer] ([place] It has not been cleared or approved by the FDA. This assay has been validated pursuant to the CLIA regulations and is used for clinical purposes. Healthcare Providers needing Interpretation assistance, please contact us at [phone] ( ) M-F, 8am to 10pm EST URINE SPECIMEN / Unknown 11/10/2024 8:25 AM CDT 11/11/2024 3:48 AM CDT Narrative Resulting Agency Comment Performing Organization Information: Site ID: CB Name: [facility] Address: [address] [place] [address] Director: James Simpson Site ID: [place] Name: [employer] ([place] Address: [address] [address] Director: Darren Guaman MD us Bryanna Castro FISHERIES ENFORCEMENT OFFICER URINE ORDERABLES Final Resu lt CAROLYNN FOSTER [facility] LIA DANIELSE [address] [place] [address] [facility] [address] [place] [address], * HEMOGLOBIN, GLYCOSYLATED (11/10/2024 8:23 AM CDT) Pathologist [facility] HGB A1C 5.3 4.5 - 6.2 % 11/10/2024 4:39 PM CDT [facility] ESTIMATED AVG GLUCOSE 105 74 - 106 MG/DL 11/10/2024 4:39 PM CDT [facility] 11/10/2024 8:23 AM CDT Bryanna Castro NP LABORATORY Final Resul t Performing Organization Address City/[facility]/ZIP Co de Phone Number [facility] [address] [place] [address], * (ABNORMAL) FREE T3 (11/10/2024 8:23 AM CDT) [facility] FREE T3 2.1(L) 2.2 - 3.9 PG/ML 11/10/2024 7:49 PM CDT [facility] 11/10/2024 8:23 AM CDT Bryanna Castro NP LABORATORY Final Resul t [facility] [address] [place] [address], [phone] * CORTISOL, TOTAL (11/10/2024 8:23 AM CDT) Pathologist [facility] CORTISOL 23.0 mcg/dL 11/10/2024 8:20 PM CDT [facility] Comment: A.M. SPECIMENS: 5.3 TO 22.5 mcg/dL P.M. SPECIMENS: 3.4 TO 16.8 mcg/dL ASSAY PERFORMED BY CHEMILUMINESCENCE METHODOLOGY USING [employer] RhytecAUR XPT REAGENT. PATIENT RESULTS DETERMINED BY ASSAYS USING DIFFERENT MANUFACTURERS FOR METHODS MAY NOT BE COMPARABLE. 11/10/2024 8:23 AM CDT Bryanna Castro NP LABORATORY Final Resul t [facility] [address] [place] [address], [phone] * (ABNORMAL) COMPREHENSIVE METABOLIC PANEL (11/10/2024 8:23 AM CDT) [facility] SODIUM S/P/B 139 136 - 145 MMOL/L 11/10/2024 3:48 PM CDT [facility] POTASSIUM S/P/B 4.4 3.5 - 5.1 MMOL/L 11/10/2024 3:48 PM CDT [facility] CHLORIDE S/P/B 104 98 - 107 MMOL/L 11/10/2024 3:48 PM CDT [facility] CO2 24.4 21 - 32 MMOL/L 11/10/2024 3:48 PM CDT [facility] GLUCOSE 89 70 - 99 MG/DL 11/10/2024 3:48 PM CDT [facility] BUN 12 7 - 18 MG/DL 11/10/2024 3:48 PM CDT [facility] CREATININE S/P/B 0.83 0.55 - 1.02 MG/DL 11/10/2024 3:48 PM CDT [facility] [place] CALCIUM S/P/B 9.0 8.4 - 10.5 MG/DL 11/10/2024 3:48 PM CDT [facility] [place] BILIRUBIN TOTAL S/P/B 0.9 0.2 - 1.0 MG/DL 11/10/2024 3:48 PM CDT [facility] [place] [facility] ALKALINE PHOSPHATASE S/P/B 111(H) 37 - 98 U/L 11/10/2024 3:48 PM CDT [facility] AST 28 15 - 37 U/L 11/10/2024 3:48 PM CDT [facility] ALT 63(H) 14 - 59 U/L 11/10/2024 3:48 PM CDT [facility] TOTAL PROTEIN S/P/B 7.0 6.4 - 8.2 G/DL 11/10/2024 3:48 PM CDT [facility] ALBUMIN S/P/B 3.8 3.4 - 5.0 G/DL 11/10/2024 3:48 PM CDT [facility] ANION GAP 10.6 5 - 15 MMOL/L 11/10/2024 3:48 PM CDT [facility] Comment:REFERENCE RANGE NOT ESTABLISHED OSMOLALITY (CALC) 287 MOSM/KG 025 3:48 PM T [facility] Comment:REFERENCE RANGE NOT ESTABLISHED GFR ESTIMATE >90 >90 ML/MIN/1. 73 M2 11/10/2024 3:48 PM CDT [facility] GFR NOTES GFR REFERENCE S: 11/10/2024 3:48 PM CDT [facility] [place] Comment: THE ESTIMATED GFR IS CALCULATED USING THE 2020 CKD-EPI EQUATION. THE FOLLOWING CATEGORIES FOR GRADING RENAL FUNCTION ARE RECOMMENDED BY THE INTERNATIONAL SOCIETY OF NEPHROLOGY (KDIGO 2012 CLINICAL PRACTICE GUIDELINE). G1,NORMAL OR HIGH: >89 ml/min/1.73 m2 G2,MILDLY DECREASED: 60-89 ml/min/1.73 m2 G3A,MILDLY TO MODERATELY DECREASED: 45-59 ml/min/1.73 m2 G3B,MODERATELY TO SEVERELY DECREASED: 30-44 ml/min/1.73 m2 G4,SEVERELY DECREASED: 15-29 ml/min/1.73 m2 G5,KIDNEY FAILURE: <15 ml/min/1.73 m2 11/10/2024 8:23 AM CDT us Bryanna Castro NP LABORATORY Final Resul t [facility] [address] [place] [address], * (ABNORMAL) LIPID PANEL (11/10/2024 8:23 AM CDT) CHOLESTEROL 153 <200 MG/DL 11/10/2024 3:48 PM CDT [facility] TRIGLYCERIDES 47 <150 MG/DL 11/10/2024 3:48 PM CDT [facility] HDL 42 >40 MG/DL 11/10/2024 3:48 PM CDT [facility] LDL-C 102(H) <100 MG/DL 11/10/2024 3:48 PM CDT [facility] VLDL CALCULATION 9 5 - 28 MG/DL 11/10/2024 3:48 PM CDT [facility] CHOL/HDL RATIO 3.6 0.0 - 4.0 11/10/2024 3:48 PM CDT [facility] LDL/HDL 2.4(H) 0.41 - 2.13 11/10/2024 3:48 PM CDT [facility] NON HDL CHOLESTEROL 111 <140 MG/DL 11/10/2024 3:48 PM CDT [facility] 11/10/2024 8:23 AM CDT Bryanna Castro NP LABORATORY Final Resul t [facility] [address] [place] [address], * DHEA-SULFATE (11/10/2024 8:23 AM CDT) DHEA SULFATE 43 19 - 237 mcg/dL [facility] 11/10/2024 8:23 AM CDT 11/11/2024 2:53 AM CDT Narrative Resulting Agency Comment Performing Organization Information: Site ID: EMRE Name: [facility] Address: [address] [address] Director: Darren Guaman MD us Bryanna Castro FISHERIES ENFORCEMENT OFFICER LABORATORY Final Resul t [facility] [place] [address] [address], * (ABNORMAL) CBC W/DIFF AUTOMATED (11/10/2024 8:23 AM CDT) WBC 7.13 4.00 - 10.80 x10'3/uL 11/10/2024 2:58 PM CDT [facility] RBC 4.85 4.10 - 5.40 x10'6/uL 11/10/2024 2:58 PM CDT [facility] HGB 13.0 12.0 - 16.0 G/DL 11/10/2024 2:58 PM CDT [facility] HCT 40.9 36.0 - 47.0 % 11/10/2024 2:58 PM CDT [facility] MCV 84.3 78.0 - 100.0 FL 11/10/2024 2:58 PM CDT [facility] MCH 26.8(L) 27.0 - 31.0 PG 11/10/2024 2:58 PM CDT [facility] MCHC 31.8(L) 33.0 - 36.0 G/DL 11/10/2024 2:58 PM CDT [facility] RDW 13.7 11.5 - 14.5 % 11/10/2024 2:58 PM CDT [facility] PLT 348 150 - 350 x10'3/uL 11/10/2024 2:58 PM CDT [facility] MPV 10.5(H) 7.4 - 10.4 FL 11/10/2024 2:58 PM CDT [facility] DIFFERENTIAL TYPE AUTOMATED DIFFERENTIAL 11/10/2024 2:58 PM CDT [facility] NEUTROPHILS % 56.1 % 11/10/2024 2:58 PM CDT [facility] LYMPHOCYTES % 35.1 % 11/10/2024 2:58 PM CDT [facility] MONOCYTES % 6.5 % 11/10/2024 2:58 PM CDT [facility] EOSINOPHILS % 1.4 % 11/10/2024 2:58 PM CDT [facility] BASOPHILS % 0.6 % 11/10/2024 2:58 PM CDT [facility] IMMATURE GRANS % 0.3 % 11/10/2024 2:58 PM CDT [facility] ABS. NEUTROPHILS 4.01 1.60 - 8.30 x10'3/uL 11/10/2024 2:58 PM CDT [facility] ABS. LYMPHOCYTES 2.50 0.80 - 4.70 x10'3/uL 11/10/2024 2:58 PM CDT [facility] ABS. MONOCYTES 0.46 0.00 - 1.50 x10'3/uL 11/10/2024 2:58 PM CDT [facility] ABS. EOSINOPHILS 0.10 0.00 - 0.40 x10'3/uL 11/10/2024 2:58 PM CDT [facility] ABS. BASOPHILS 0.04 0.00 - 0.20 x10'3/uL 11/10/2024 2:58 PM CDT [facility] ABS. IMMATURE GRANULOCYTES 0.02 0.00 - 0.03 x10'3/uL 11/10/2024 2:58 PM CDT [facility] 11/10/2024 8:23 AM CDT Bryanna Castro NP LABORATORY Final Resul t [address] [address], * THYROXINE, FREE (FT4) (11/10/2024 8:23 AM CDT) FREE T4 1.08 0.76 - 1.46 NG/DL 11/10/2024 3:48 PM CDT [facility] 11/10/2024 8:23 AM CDT us Bryanna Castro NP LABORATORY Final Resul t Performing Organization Address [facility] de Phone Number [address] [address], * THYROID STIM HORMONE TSH (11/10/2024 8:23 AM CDT) TSH 3.592 0.358 - 3.740 uIU/ML 11/10/2024 3:48 PM CDT [facility] 11/10/2024 8:23 AM CDT us Bryanna Castro NP LABORATORY Final Resul t Performing Organization Address [facility] Co de Phone Number [address] [address], * (ABNORMAL) VITAMIN D, 25 OH (11/10/2024 8:23 AM CDT) VITAMIN D 25 HYDROXY TOTAL S/P/B 18.5(L) 30 - 100 NG/ML 11/10/2024 3:48 PM CDT [facility] Comment: DEFICIENT <20 INSUFFICIENT 20-30 SUFFICIENT 30-100 11/10/2024 8:23 AM CDT Bryanna Castro NP LABORATORY Final Resul t [facility] [address] [place] [address], [place] [phone] * ACTH (11/10/2024 8:23 AM CDT) Pathologist [facility] ACTH 45 6 - 50 pg/mL [facility] Comment: Reference range applies only to specimens collected between 7am-10am. 11/10/2024 8:23 AM CDT 11/11/2024 6:22 AM CDT Narrative Resulting Agency Comment Performing Organization Information: Site ID: AMD Name: [employer] [facility] Address: [address] [place] [address] Director: Giovanni Navarrete M.D.,PhD Bryanna Castro NP LABORATORY Final Resul t Performing Organization Address City/[facility]/ZIP Co de Phone Number [facility] [address] , [place] [phone] * HEPATITIS C ANTIBODY (02/06/2024 7:13 AM CDT) Pathologist [facility] HEPATITIS C AB NON-REACTI VE NON-REACT ANGELITO 02/06/2024 8:12 PM CDT [facility] Comment: ANTIBODIES TO HCV NOT DETECTED. DOES NOT EXCLUDE THE POSSIBILITY OF EXPOSURE TO HCV. 02/06/2024 7:13 AM CDT Bryanna Castro NP LABORATORY Final Resul t [facility] [address] [place] [address], [place] [phone] [id number] from Last 3 Months or Most Recently Relevant to Health Maintenance Insurance [facility] Care Teams Civil Structural Engineer Relationship Specialty Start Date End Date Bryanna Castro, FISHERIES ENFORCEMENT OFFICER [address] [facility] [address] [place] [address] PCP - General NURSE PRACTITIONER 01/21/24
--- OUTSIDE RECORDS SUMMARY | 2024-12-12 10:57 | XMS_ITS | Encounter Summary ---
Author Organization [facility] Address [facility] [place] [address] Care Team Providers Care Multi Operation Forming Machine Setter Name Role Phone Bryanna Castro ANGIOGRAPHER Primary Care Provider [phone] Encounter Details Date Type Department Care Team (Latest Contact Info) Description 11/11/2024 Results Follow-Up [place] [address] [place] [address] Bryanna Castro, ANGIOGRAPHER [address] [place] [address] HEMOGLOBIN, GLYCOSYLATED, THYROID STIM HORMONE TSH, VITAMIN D, 25 OH, Additional followed-up results: 9 Social History Tobacco Use Types Packs/Day Years Used Date Smoking Tobacco: Never Passive Smoke Exposure: Never Smokeless Tobacco: Never Alcohol Use Standard Drinks/Week Comments Yes 0 (1 standard drink = 0.6 oz pur e alcohol) socially PHQ-2 Answer Date Recorded Patient Health Questionnaire-2 Score 0 10/15/2024 Comments No Sex and Gender Information Value Date Recorded Sex Assigned at Female 06/02/2024 8:28 AM HOME CARE AIDE Legal Sex Female 9:13 PM CDT Gender Identity Female 06/02/2024 8:28 AM HOME CARE AIDE Sexual Orientation Straight 06/02/2024 8: 28 AM HOME CARE AIDE documented as of this encounter Plan of Treatment Upcoming Encounters Date Type Department Care Team (Late st Contact Info) Description 02/23/2025 1:20 PM HOME CARE AIDE [facility] [place] [address] [place] [address] Bryanna Castro, ANGIOGRAPHER [address] [facility] [address] [place] [address] documented as of this encounter Visit Diagnoses Not on filedocumented in this encounter Additional Health Concerns Assessment Noted Time PHQ-9 Depression Total Score: 10 025 11:15 AM CDT documented as of this encounter Care Teams Multi Operation Forming Machine Setter Relationship Specialty Start Date End Date Bryanna Castro, LEA [address] [facility] [address] [place] [address] PCP - General NURSE PRACTITIONER 01/21/24 documented as of this encounter
--- OUTSIDE RECORDS SUMMARY | 2024-12-12 10:57 | XMS_ITS | Patient Health Record ---
Author Organization [facility] [employer] [facility] Address [address] [place] [address] Care Team Providers Care [employer] Conservation Laborer Name Role Phone Gloria TATE, Bryanna Primary Care Provider Chaparrita Alejo Unavailable [phone] Estela Knapp Unavailable [phone] Sindy Ramsay Unavailable [phone] Allergies No Known Allergies Reason For Referral No Information Medications Medication SIG (Take, Route, Frequency, Duration) Notes Start Date End Date Status Escitalopram Oxalate 10 MG Tablet 1 tablet Orally Once a day; Duration: 30 days Active Mcintosh Thyroid 15 MG Tablet 1 tablet on an empty stomach Orally Once a day Not-Taking Mirena (52 MG) 20 MCG/DAY Intrauterine Device as directed Intrauterine Active Lexapro 10 MG Tablet 1 tablet Orally Onc e a day; Duration: 90 days Active buPROPion HCl ER (XL) 150 MG Tablet Extended Release 24 Hour 1 tablet in the morning Orally Once a day Active Olmesartan Medoxomil 20 MG Tablet 1 tablet Orally Once a day Active Levothyroxine Sodium 100 MCG Tablet 1 tablet in the morning on an empty stomach Orally Once a day Active Immunizations Vaccine Route Administration Date Status Comme nts Influenza virus vaccine, quadrivalent (IIV4), split virus, 0.25 mL dosage Unknown 02/07/2018 Administered Influenza virus vaccine, quadrivalent (IIV4), split virus, 0.25 mL dosage Unknown 02/08/2019 Administered Social History Tobacco Use: Social History Observation Description Date Details (start date - stop date) Current Smoker 04/23/2011 - NA Sex Assigned At : Social History Observation Description Sex Assigned At Female Social History Miscellaneous: Social Info Question Answer Notes Safety issues: Are there any firearms in the house? No Social History Social Info Question Answer Notes Household: Marital Status: Number of Adults in household: 2 Number of Children in Household: 2 Level of Education: Finished High School Drug/Alcohol: Social Info Question Answer Notes Drugs Have you used drugs other than those for medical reasons in the past 12 months? Yes Marijuana? Yes AUDIT-C (Standard) Did you have a drink containi ng alcohol in the past year? Yes How often did you have six or more drinks on one occasion in the past year? Never (0 point) How many drinks did you have on a typical day when you were drinking in the past year? 1 or 2 drinks (0 point) How often did you have a drink containing alcohol in the past year? Monthly or less (1 point) Tobacco Use: Social Info Question Answer Notes Tobacco Control (Standard) Tobacco use: Current smoker When did you start smoking? 04/23/2011 How often do you smoke cigarettes? Every day How many cigarettes a day do you smoke? 5 or less How soon after you wake up do you smoke your first cigarette? 31-60 minutes Are you interested in quitting? Thinking about quitting Additional Details Category Social Info Options Details Migrated Social History Migrated Social History Alcohol Intake: Occasional 01/09/2020,Tobacco Years: Current every day smoker 01/09/2020,Smoking Status: 7 01/09/2020 Section Notes: Lives in [place] with h usband of 9 yrs and their 2 kids. Grew up in [place], no siblings. 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 Lives in [place] with h usband of 9 yrs and their 2 kids. Grew up in [place], no siblings. 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 Lives in [place] with h usband of 9 yrs and their 2 kids. Grew up in [place], no siblings. 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 Lives in [place] with h usband of 9 yrs and their 2 kids. Grew up in [place], no siblings. 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 Lives in [place] with h usband of 9 yrs and their 2 kids. Grew up in [place], no siblings. 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 Lives in [place] with h usband of 9 yrs and their 2 kids. Grew up in [place], no siblings. 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 Lives in [facility] [place] and their 2 kids. Grew up in [place], no siblings. Education/employment: high school. Lives in [place] with h usband of 9 yrs and their 2 kids. Grew up in [place], no siblings. 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 Lives in [place] with h usband of 9 yrs and their 2 kids. Grew up in [place], no siblings. 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 Problems Problem Type SNOMED Code ICD Code Onset Dates Problem Status W/U Status Risk Notes Problem Generalized anxiety disorder (14790490) Generalized anxiety disorder (F41.1) Active confirmed Problem Attention deficit hyperactivity disorder (072668633) ADHD (attention deficit hyperactivity disorder), combined type (F90.2) Active confirmed Problem Panic disorder (652506284) Panic attacks (F41.0) Active confirmed Problem Mild recurrent major depression (39893579) Mild recurrent major depression (F33.0) Active confirmed Problem Tobacco use (975209904) Nicotine use (Z72.0) Active confirmed Problem Essential hypertension (88962075) Benign essential HTN (I10) Active confirmed Vital Signs Heart Rate 79 /min 08/12/2024 117/79 Height-cm 170.18 cm 08/12/2024 117/79 Blood pressure diastolic 79 mm Hg 08/12/2024 117 /79 Weight-kg 134.72 kg 08/12/2024 117/79 Height 67 in 08/12/2024 117/79 Blood pressure systolic 117 mm Hg 08/12/2024 117/ 79 Weight 297 lbs 08/12/2024 117/79 BMI 46.51 kg/m2 08/12/2024 117/79 Encounters Encounter Location Date Provider Diagnosis [facility] [employer] [facility] [address] [facility] [address] [place] [address] 12/26/2023 Estela Hemann Generalized anxiety disorder F41.1 ; Mild recurrent major depression F33.0 ; Panic attacks F41.0 and ADHD (attention deficit hyperactivity disorder), combined type F90.2 [facility] [address] [place] [address] 01/16/2024 Estela Hemann Generalized anxiety disorder F41.1 ; Panic attacks F41.0 ; ADHD (attention deficit hyperactivity disorder), combined type F90.2 and Mild recurrent major depression F33.0 [facility] [address] [place] [address] 01/30/2024 Estela Hemann Generalized anxiety disorder F41.1 ; Panic attacks F41.0 ; ADHD (attention deficit hyperactivity disorder), combined type F90.2 and Mild recurrent major depression F33.0 [facility] [address] [facility] [address] [place] [address] 02/20/2024 Estela Hemann ADHD (attention deficit hyperactivity disorder), combined type F90.2 ; Generalized anxiety disorder F41.1 and Panic attacks F41.0 [facility] [address] [place] [address] 02/20/2024 Sindy Jazzyrikki Generalized anxiety disorder F41.1 ; Mild recurrent major depression F33.0 and Panic attacks F41.0 [facility] [address] [facility] [address] [place] [address] 03/05/2024 Estela Hemann Generalized anxiety disorder F41.1 ; ADHD (attention deficit hyperactivity disorder), combined type F90.2 ; Panic attacks F41.0 and Mild recurrent major depression F33.0 [facility] [address] [place] [address] 03/25/2024 Estela Hemann Generalized anxiety disorder F41.1 ; ADHD (attention deficit hyperactivity disorder), combined type F90.2 ; Panic attacks F41.0 and Mild recurrent major depression F33.0 [facility] [address] [place] [address] 05/21/2024 Chaparrita Reis [facility] [address] [place] [address] 07/01/2024 Chaparrita Reis [facility], [facility] [address] [place] [address] 08/12/2024 Estela Knapp Generalized anxiety disorder F41.1 ; ADHD (attention deficit hyperactivity disorder), combined type F90.2 ; Panic attacks F41.0 and Mild recurrent major depression F33.0 [place] [address] [address] 08/12/2024 Chaparrita Reis Generalized anxiety disorder F41.1 ; Panic attacks F41.0 ; ADHD (attention deficit hyperactivity disorder), combined type F90.2 ; Nicotine use Z72.0 ; Encounter for screening for depression Z13.31 ; Benign essential HTN I10 and Encounter for screening for cardiovascular disorders Z13.6 [place] [address] [facility] [address] [address] 03/25/2024 [place] [address] [address] [facility] [address] [address] 07/16/2024 Chaparrita Reis Generalized anxiety disorder F41.1 [place] [address] [address] 02/13/2024 Sindy Ramsay [place] [address] [address] 09/03/2024 Chaparrita Reis [place] [address] [address] 09/03/2024 Chaparrita Reis [place] [address] [address] 09/03/2024 Chaparrita Reis [facility], [place] [address] [address] 09/03/2024 Chaparrita Reis Assessments Encounter Date Diagnosis (ICD Code) Assessment Notes Treatment Notes Treatment Clinical Notes Section Notes 12/26/2023 Generalized anxiety disorder (ICD-10 - F41.1) 12/26/2023 Mild recurrent major depression (ICD-10 - F33.0) 01/16/2024 Generalized anxiety disorder (ICD-10 - F41.1) 01/30/2024 Generalized anxiety disorder (ICD-10 - F41.1) 02/20/2024 Generalized anxiety disorder (ICD-10 - F41.1) 02/20/2024 ADHD (attention deficit hyperactivity disorder), combined type (ICD-10 - F90.2) 02/20/2024 Generalized anxiety disorder (ICD-10 - F41.1) improvement cont lexapro 10mg daily cont therapy diff: adhd-get anxiety/mood better managed, see if sx remain hx HTN (HCTZ, amlodipine) significant improvement and tolerating SSRI. will cont current med, education med and treatment course. also in process getting thyroid meds adjusted started therapy f/u in 3 months, earlier if concerns -discussed transition to new provider here as I am leaving the practice after this month 03/05/2024 Generalized anxiety disorder (ICD-10 - F41.1) 03/05/2024 ADHD (attention deficit hyperactivity disorder), combined type (ICD-10 - F90.2) 03/25/2024 Generalized anxiety disorder (ICD-10 - F41.1) 03/25/2024 ADHD (attention deficit hyperactivity disorder), combined type (ICD-10 - F90.2) 07/16/2024 Generalized anxiety disorder (ICD-10 - F41.1) 08/12/2024 Generalized anxiety disorder (ICD-10 - F41.1) 08/12/2024 ADHD (attention deficit hyperactivity disorder), combined type (ICD-10 - F90.2) 08/12/2024 Generalized anxiety disorder (ICD-10 - F41.1) 08/12/2024 Panic attacks (ICD-10 - F41.0) 08/12/2024 ADHD (attention deficit hyperactivity disorder), combined type (ICD-10 - F90.2) 02/20/2024 Mild recurrent major depression (ICD-10 - F33.0) improvement SSRI, therapy as above 08/12/2024 Panic attacks (ICD-10 - F41.0) 03/25/2024 Panic attacks (ICD-10 - F41.0) 03/05/2024 Panic attacks (ICD-10 - F41.0) 02/20/2024 Panic attacks (ICD-10 - F41.0) 01/30/2024 Panic attacks (ICD-10 - F41.0) 01/16/2024 Panic attacks (ICD-10 - F41.0) 12/26/2023 Panic attacks (ICD-10 - F41.0) 12/26/2023 ADHD (attention deficit hyperactivity disorder), combined type (ICD-10 - F90.2) 01/16/2024 ADHD (attention deficit hyperactivity disorder), combined type (ICD-10 - F90.2) 01/30/2024 ADHD (attention deficit hyperactivity disorder), combined type (ICD-10 - F90.2) 02/20/2024 Panic attacks (ICD-10 - F41.0) none SSRI, therapy as above 03/05/2024 Mild recurrent major depression (ICD-10 - F33.0) 03/25/2024 Mild recurrent major depression (ICD-10 - F33.0) 08/12/2024 Mild recurrent major depression (ICD-10 - F33.0) 08/12/2024 Nicotine use (ICD-10 - Z72.0) 01/30/2024 Mild recurrent major depression (ICD-10 - F33.0) 01/16/2024 Mild recurrent major depression (ICD-10 - F33.0) 08/12/2024 Benign essential HTN (ICD-10 - I10) 08/12/2024 Encounter for screening for depression (ICD-10 - Z13.31) 08/12/2024 Encounter for screening for cardiovascular disorders (ICD-10 - Z13.6) 08/12/2024 Other Norma Ferrari is a female patient with a history of Pradip's thyroiditis, presenting with anxiety and sleep disturbances. Anxiety with sleep disturbances Assessment: Patient reports a history of anxiety managed with Lexapro 10 mg. Recently, she has been experiencing sleep disturbances, specifically difficulty staying asleep, waking up 4-5 times throughout the night. These symptoms have been present for approximately one month. The sleep issues do not appear to be associated with panic attacks. 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 Plan: - Continue levothyroxine 100 mg PO daily Nicotine dependence Assessment: Patient reports current vaping use and expresses a desire to quit. Plan: - Encourage continued efforts to quit vaping Plan Of Treatment No Information Insurance Providers Payer Name Payer Address Payer Phone Subscriber Number Group Number Insured Name Patient Relationship to Insured Coverage Start Date Coverage End Date Umr [address] [address] [place] [address] [id number] NORMA FERRARI Self - patient is the insured 4 [employer]a [address] [place] [address] [id number] NORMA FERRARI Self - patient is the insured 2024 Medical (General) History Medical History History ICD Code Attention deficit hyperactivity disorder , combined type vitamin D deficiency Past Psychiatric History: Anxiety Disord er undefined Surgical History Surgery Date(Month/Year) delivery (20880) 2 Cholecystectomy (30378932)
--- NOTE | 2024-12-12 11:30 | ECG_ITS ---
Test Date: 2024-12-12 11:04:47 Measurements Intervals [place] Rate: 80 P: 5 NH: 124 QRS: 3 QRSD: 112 T: 9 QT: 385 QTc: 446 Interpretive Statements SINUS RHYTHM INTRAVENTRICULAR CONDUCTION DELAY BASELINE ARTIFACT- I, II, III, AVR, AVL, AVF, V5-V6 BORDERLINE ECG No previous ECG available for comparison Electronically Signed On 12-12-2024 11:12:44 CDT by Mark Olivia D.O.
[2024-12-12 11:43] LABS: Hematocrit 42.5 % (37.0-47.0); Hemoglobin 13.4 g/dL (12.0-15.0); Immature Granulocyte Percent A 0.3 % (0-0.5); Lymphocytes Absolute Auto 2.35 K/mm3 (0.9-3.2); Mean Corpuscular HGB Conc 31.5 g/dl (32-36); Mean Corpuscular Hemoglobin 26.8 pg (26-34); Mean Corpuscular Volume 85.0 fl (80-100); Nucleated Red Blood Cells Absolute Auto 0.000 K/mm3 (0.0-0.012); Nucleated Red Blood Cells Perc 0.0 % (0.0-0.2); Platelet Count Result 373 k/mm3 (150-375); Red Blood Count 5.00 M/mm3 (4.2-5.4); White Blood Count 6.8 K/mm3 (4.5-10.0)
== END 2024-12-12 10:48 | disposition home or self-care (01) ==
LOC: ANHSURGERY 10:52
PROVIDERS: PCP Nurse Practitioner; Visit Provider Obstetrics & Gynecology
DX: N93.9 Abnormal uterine and vaginal bleeding, unspecified (principal); I10 Essential (primary) hypertension
CPT/HCPCS: 36415; 85025; 86850; 86900; 86901; 93005

== ENCOUNTER 2024-12-19 09:15 | Day surgery (SDC) | payer BC, SELFPAY ==
--- OUTSIDE RECORDS SUMMARY | 2024-03-08 16:00 | XMS_ITS ---
Author Organization [facility] Address [address] [place] [address] Care Team Providers Care Rn First Assist Name Role Phone Jasmeet Hannah Primary Care Provider Migration, Provider Unavailable Unavailable REASON FOR VISIT Multum To Medispan Conversion Encounter Medications Medication SIG (Take, Route, Frequency, Duration) Notes Start Date End Date Status [place] Thyroid 15 MG 1 tab(s) orally onc e a day Active dexAMETHasone 1 MG 1 tab(s) orally at 1 0 pm night before 8 am cortisol for 1 days 02/25/2024 Active Propranolol HCl 10 MG 1 tab(s) orally 2 times a day Active Escitalopram Oxalate 10 MG 1 tab(s) oral ly once a day Active amLODIPine Besylate 5 MG 1 tab(s) orally once a day Active Encounters Encounter Location Date Provider Diagnosis [place] [address] [address] 03/08/2024 Provider Migration Obesity, unspecified E66.9 Assessments Encounter Date Diagnosis (ICD Code) Assessment Notes Treatment Notes Treatment Clinical Notes Section Notes 03/08/2024 Obesity, unspecified (ICD-10 - E66.9) Plan Of Treatment Medication Medication Name Sig Start Date Stop Date Notes dexAMETHasone 1 MG 1 tab(s) orally at 1 0 pm night before 8 am cortisol for 1 days 02/25/2024 Progress Notes * Norma FERRARIDOB:1990 (34 yo F)Acc No.[id number]:03/08/2024 Patient: Norma YAO Provider: Ruby jack Migration :1990 A ge:33 Y S ex:Female Date:03/08/2024 Address:[address] [place] [address] Pcp:Hannah Alamo Subjective: * Chief Complaints: * 1 . Multum To Medispan Conversion Encounter. * Medical History: * Medications: T aking Propranolol HCl 10 MG Tablet 1 tab(s) orally 2 times a day , Taking Escitalopram Oxalate 10 MG Tablet 1 tab(s) orally once a day , Taking amLODIPine Besylate 5 MG Tablet 1 tab(s) orally once a day , Taking [place] Thyroid(Thyroid) 15 MG Tablet 1 tab(s) orally once a day Objective: * Vitals: Assessment: * Assessment: 1. O besity, unspecified - E66.9 Plan: * Treatment: * Billing Information: * Visit Code: * Procedure Codes: * Electronic signature of Prov ider Migration on 12/19/2024 at 09:19 AM CDT Sign off status: Pending * Provider: Ruby jack Migration Date: 05/08/2023 Generated for Filipe vanessa/Yue/Ángel on: 0 12/19/2024 09:19 AM CDT
--- OUTSIDE RECORDS SUMMARY | 2024-03-24 07:20 | XMS_ITS ---
Author Organization [facility] Address [address] [place] [address] Care Team Providers Care Repairer Sash And Door Name Role Phone Hannah Alamo Primary Care Provider REASON FOR VISIT 3 week follow up Encounters Encounter Location Date Provider Diagnosis [facility] - Hannah Alamo [address] [place] [address] 03/24/2024 Hannah Alamo Plan Of Treatment No Information Progress Notes * Norma FERRARIDOB:1990 (34 yo F)Acc No.[id number]:03/24/2024 Progress Notes Patient: Norma YAO Provider: Toshia Alamo MD :1990 A ge:33 Y S ex:Female Date:03/24/2024 Address:[address] [place] [address] Subjective: * Chief Complaints: * 1 . 3 week follow up. * Medical History: Objective: * Vitals: Assessment: Plan: * Treatment: * Billing Information: * Visit Code: * Procedure Codes: * Electronic signature of Chepe Alamo MD on 12/19/2024 at 09:19 AM CDT Sign off status: Pending * Provider: Toshia Alamo MD Date: 1 05/25/2023 Generated for Filipe vanessa/Yue/Sabaitting on: 0 12/19/2024 09:19 AM CDT
--- OUTSIDE RECORDS SUMMARY | 2024-05-26 04:40 | XMS_ITS ---
Author Organization [facility] Address [address] [place] [address] Care Team Providers Care Marketing Regional Consultant Name Role Phone Hannah Alamo Primary Care Provider REASON FOR VISIT 6 week f/u eva Medications Medication SIG (Take, Route, Frequency, Duration) Notes Start Date End Date Status dexAMETHasone 1 MG 1 tab(s) orally at 1 0 pm night before 8 am cortisol for 1 days 02/25/2024 Not-Taking Ergocalciferol 1.25 MG (46907 UT) 1 capsule Orally weekly for 84 [...] a day for 90 days 04/21/2024 Unknown [place] Thyroid 15 MG 1 tab(s) orally onc e a day Unknown Encounters Encounter Location Date Provider Diagnosis [facility] - Hannah Alamo [address] [address] 05/26/2024 Hannah Alamo Plan Of Treatment No Information Progress Notes * Norma FERRARIDOB:1990 (34 yo F)Acc No.[id number]:05/26/2024 Progress Notes Patient: Norma YAO Provider: Toshia Alamo MD :1990 A ge:33 Y S ex:Female Date:05/26/2024 Address:[address] [place], [place] [address] Subjective: * Chief Complaints: * 1 . [...] tab(s) orally once a day , Unknown [place] Thyroid(Thyroid) 15 MG Tablet 1 tab(s) orally once a day , Unknown Unithroid(Levothyroxine Sodium) 75 MCG Tablet 1 tablet in the morning on an empty stomach Orally Once a day , Unknown Ergocalciferol 1.25 MG (95028 UT) Capsule 1 capsule Orally weekly Objective: * Vitals: Assessment: Plan: * Treatment: * Billing Information: * Visit Code: * Procedure Codes: * Electronic signature of Chepe Alamo MD on 12/19/2024 at 09:19 AM CDT Sign off status: Pending * Provider: Toshia Alamo MD Date: 0 05/26/2024 Generated for Filipe vanessa/Yue/Ángel on: 0 12/19/2024 09:19 AM CDT
--- OUTSIDE RECORDS SUMMARY | 2024-06-03 08:30 | XMS_ITS ---
Author Organization [facility] Address [address] [place] [address] Care Team Providers Care Fabric And Textile Factory Worker Name Role Phone Hannah Alamo Primary Care Provider REASON FOR VISIT 3 Month Follow-up Encounters Encounter Location Date Provider Diagnosis [facility] - Hannah Alamo [address] [place] [address] 06/03/2024 Hannah Alamo Plan Of Treatment No Information Progress Notes * Norma FERRARIDOB:1990 (34 yo F)Acc No.[id number]:06/03/2024 Progress Notes Patient: Norma YAO Provider: Toshia Alamo MD :1990 A ge:33 Y S ex:Female Date:06/03/2024 Address:[address] [place] [address] Subjective: * Chief Complaints: * 1 . 3 Month Follow-up. * Medical History: Objective: * Vitals: Assessment: Plan: * Treatment: * Billing Information: * Visit Code: * Procedure Codes: * Electronic signature of Chepe Alamo MD on 12/19/2024 at 09:19 AM CDT Sign off status: Pending * Provider: Toshia Alamo MD Date: 06/03/2024 Generated for Filipe vanessa/Yue/Sabaitting on: 12/19/2024 09:19 AM CDT
--- OUTSIDE RECORDS SUMMARY | 2024-08-04 09:00 | XMS_ITS ---
Author Organization [facility] Address [address] [place], [place] [id number] Care Team Providers Care Apron Cleaner Name Role Phone Hannah Alamo [phone] REASON FOR VISIT FU Medications Medication SIG (Take, Route, Frequency, Duration) Notes Start Date End Date Status Ergocalciferol 1.25 MG (08286 UT) Capsule 1 capsule Orally weekly; Duration: 84 days 04/21/2024 Active Unithroid 75 MCG Tablet 1 tablet in the morning on an empty stomach Orally Once a day; Duration: 90 days 04/21/2024 Active Escitalopram Oxalate 10 MG Tablet 1 tab(s) orally once a day Active Propranolol HCl 10 MG Tablet 1 tab(s) or ally 2 times a day Active Olmesartan Medoxomil 20 MG Tablet 1 tablet Orally once a day Active Encounters Encounter Location Date Provider Diagnosis [address] [address] 08/04/2024 Hannah Alamo Plan Of Treatment Next Appt Details Provider Name:Hannah Jasmeet, 03:20:00 PM, [address] [place] [address], [phone], History and Physical Notes * HPI (History of Present Illness) Category Sub-Category Detail Notes Category Not es History of Present Illness 33 yo female comes in for follow up in management and evaluation of hypothyroidism, weight management At last visit in May we continued unithroid 75 mcg daily. DST from 04/15 was borderline with cortisol of 1.3 ug/dL Progress Notes * Norma FERRARIDOB:1990 (34 yo F)Acc No.[id number]:08/04/2024 Progress Notes Patient: Norma Donovan Provider: Toshia Alamo MD :1990 A ge:33 Y S ex:Female Date:08/04/2024 Address:[address] [place], [place] [id number] Subjective: * Chief Complaints: * F U * HPI: H istory of Present Illness: 33 yo female comes in for follow up in management and evaluation of hypothyroidism, weight management At last visit in May we continued unithroid 75 mcg daily. DST from 04/15 was borderline with cortisol of 1.3 ug/dL. * Medications: T akingOlmesartan Medoxomil 20 MG Tablet 1 tablet Orally once a day Propranolol HCl 10 MG Tablet 1 tab(s) orally 2 times a day Escitalopram Oxalate 10 MG Tablet 1 tab(s) orally once a day Unithroid 75 MCG Tablet 1 tablet in the morning on an empty stomach Orally Once a day Ergocalciferol 1.25 MG (54906 UT) Capsule 1 capsule Orally weekly Taking Olmesartan Medoxomil 20 MG Tablet 1 tablet Orally once a day Taking Propranolol HCl 10 MG Tablet 1 tab(s) orally 2 times a day Taking Escitalopram Oxalate 10 MG Tablet 1 tab(s) orally once a day Taking Unithroid 75 MCG Tablet 1 tablet in the morning on an empty stomach Orally Once a day Taking Ergocalciferol 1.25 MG (30179 UT) Capsule 1 capsule Orally weekly * Electronic signature of Chepe Alamo MD on 12/19/2024 at 09:20 AM CDT Sign off status: Pending * Provider: Toshia Alamo MD Date: 0 08/04/2024 Generated for Filipe vanessa/Yue/Ángel on: 0 12/19/2024 09:20 AM CDT
--- OUTSIDE RECORDS SUMMARY | 2024-08-22 09:20 | XMS_ITS ---
Author Organization [facility] Address [address], [place] [id number] Care Team Providers Care Textile Screen Maker Name Role Phone Hannah Alamo Jluis [phone] REASON FOR VISIT Fu sleep study and [...] 90 days 04/21/2024 Active Ergocalciferol 1.25 MG (63893 UT) Capsule 1 capsule Orally weekly; Duration: 84 days 04/21/2024 Active Olmesartan Medoxomil 20 MG Tablet 1 tablet Orally once a day Active Encounters Encounter Location Date Provider Diagnosis AM[facility] Dr. Alamo [address] [place] [phone] 08/22/2024 Hannah Alamo Plan Of Treatment Next Appt Details Provider Name:Hannah Alamo, 03:20:00 PM, [address] [place] [address], [phone], History and Physical Notes * HPI (History [...] Notes * Norma FERRARIDOB:1990 (34 yo F)Acc No.[id number]:08/22/2024 Progress Notes Patient: Norma Donovan Provider: Toshia Alamo MD :1990 A ge:33 Y S ex:Female Date:08/22/2024 Address:[address] [place], [place] [address], [facility] [id number] Subjective: * Chief Complaints: * F u [...] Orally Once a day Ergocalciferol 1.25 MG (73770 UT) Capsule 1 capsule Orally weekly Taking [...] Once a day Taking Ergocalciferol 1.25 MG (23560 UT) Capsule 1 capsule Orally weekly Billing Information: * Procedure Codes: * Electronic signature of Chepe Alamo MD on 12/19/2024 at 09:18 AM CDT Sign off status: Pending * Provider: Toshia Alamo MD Date: 08/22/2024 Generated for Filipe vanessa/Yue/Ángel on: 12/19/2024 09:18 AM CDT
--- OUTSIDE RECORDS SUMMARY | 2024-09-16 10:40 | XMS_ITS ---
Author Organization [facility] Address [address] [place], [place] [id number] Care Team Providers Care Fluorescent Lighting Model Maker Name Role Phone Hannah Alamo Jluis [phone] REASON FOR VISIT Lab FU Medications Medication [...] once a day Active Ergocalciferol 1.25 MG (11723 UT) Capsule 1 capsule Orally weekly; Duration: 84 days 04/21/2024 Active Encounters Encounter Location Date Provider Diagnosis [facility] Dr. Alamo [address] [place] [phone] 09/16/2024 Hannah Alamo Plan Of Treatment Next Appt Details Provider Name:Hannah Alamo, 03:20:00 PM, [address] [place] [address], [phone], Progress Notes * Norma FERRARIDOB:1990 (34 yo F)Acc No.[id number]:09/16/2024 Progress Notes Patient: Norma Donovan Provider: Toshia Alamo MD :1990 A ge:33 Y S ex:Female Date:09/16/2024 Address:[address] [place], [place] [phone] Subjective: * Chief Complaints: * L ab [...] Orally Once a day Ergocalciferol 1.25 MG (13012 UT) Capsule 1 capsule Orally weekly Taking [...] Once a day Taking Ergocalciferol 1.25 MG (48051 UT) Capsule 1 capsule Orally weekly * Electronic signature of Chepe Alamo MD on 12/19/2024 at 09:19 AM CDT Sign off status: Pending * Provider: Toshia Alamo MD Date: 0 09/16/2024 Generated for Filipe vanessa/Yue/Ángel on: 0 12/19/2024 09:19 AM CDT
--- NOTE | 2024-12-09 13:34 | SUR.PREOP ---
Report to the Outpatient Waiting Room, entrance under the green pavilion located off [facility], at time ___1130____ on date ___12/19/24____. Planned Procedure Time: ____1329____.? Time changes happen often and if your time is changed the preop area will call you the afternoon before. - You and your visitor will be asked to self-screen and do not enter if you have any COVID symptoms. Please call surgeon if you need to reschedule. - A mask is optional within the hospital at this time. Patients may have clear liquids (water, carbonated beverages, clear teas, apple juice) until 3 hours prior to surgery with a maximum of 20 ounces. - NO CLEAR LIQUIDS AFTER 1030 - No food from midnight until time of surgery and no smoking, or chewing tobacco (or any form of nicotine). No chewing gum, candy or mints. - Infants may have breast milk until 4 hours before surgery, infant formula 6 hours prior to surgery. - Children will be allowed to drink immediately following surgery.? If applicable, please bring a bottle or sippy cup to assist with drinking. Juice, water, soda, and popsicles are readily available.? For infants on formula, please bring formula the day of surgery.? Pacifiers are allowed. Take only the following medications with a SIP of water on the morning of surgery: HYDROXYZINE, LEVOTHYROXINE DO NOT STOP ANY OF YOUR OTHER PRESCRIPTION MEDICATIONS PRIOR TO SURGERY EXCEPT THE FOLLOWING Hold all vitamins and supplements for 3 days per anesthesiologist. Medications to discontinue per physician N/A Date to take last dose Please no make-up, nail portuguese, hairspray, perfume, deodorant, or body powder the day of surgery.? No jewelry (including any body piercings) or valuables the day of surgery, leave them at home.? Please take a shower or bath the night before, or the morning of, surgery with an antibacterial soap.? Wear comfortable, loose fitting clothing.? Children are encouraged to wear pajamas. - Jewelry must be removed prior to entering the operating room.? Rings and piercings that are not removed may be cut off. - The hospital will not accept responsibility for valuables.? - Please leave all valuables, including medications, at home the day of surgery. If you are going home after surgery, a licensed dolly driver must drive you home.? - NO public transportation without another adult if you receive anesthesia. - We recommend that an adult stay with you for 24 hours following discharge. - We also recommend that you do not drive, make important decision, drink alcoholic beverages, or take any drugs that were not prescribed by your health care provider for at least 24 hours after your discharge time. For Pediatric surgeries, we recommend two adults accompany the child home. Follow any additional instructions given to you from your surgeon. Telephone instructions given to ZHANNA FERRARI and asked if any additional questions and then verbalized understanding. Patient advised to call surgeon office or pre surgery nurse liaison [phone] if any additional questions.
[2024-12-09 13:49] VITALS: BMI 44.6
--- NOTE | 2024-12-16 13:07 | PM.IMHP ---
H&P: HPI History of Present Illness Date/Time: 12/16/24 13:07 Chief Complaint: Pelvic pain and dyspareunia/heavy bleeding Narrative: female 2 para 2 loss for robotic total vaginectomy bilateral salpingectomy secondary to chronic pain and excessive heavy bleeding. Medical therapy has been unhelpful. Risks and benefits of this procedure reviewed including not exclusive of , aspiration, bleeding, transfusion, perforation injury to bowel, bladder, ureters, or other internal organs with the need for open laparotomy. She received the ACOG handout entitled hysterectomy as well as the de Mitul handout. She had all questions answered. She asked to proceed Review of Systems Review of Systems: All systems reviewed & are unremarkable except as noted in HPI and below PMFSH Past Medical History Medical History Hx of migraines Anxiety HTN (hypertension) Surgical History Surgical History Hx laparoscopic cholecystectomy History of Family History Family History Father FH: cholecystectomy Hypertension History of blood clots Grandparent Heart attack FH: cholecystectomy Cancer Hypertension Cerebrovascular accident Mother FH: cholecystectomy Social History Social History Smoking packs per day: 1 Smoking cigarettes per day: 20.0 Years smoked: 13 Smoking pack-years: 13.00 Smoking status: Current every day smoker Tobacco type: cigarettes Second hand tobacco smoke exposure: Yes Alcohol intake: never Substance use: never Living arrangements: with family Occupation/Education: occupation 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 Gender identity (if verbalized by the patient): Female Spiritual care concerns: No Meds Home Medications and Allergies Home Medications ?Medication ?Instructions ?Recorded ?Confirmed ?Type ergocalciferol (vitamin D2) 1,250 1,250 mcg PO WEEKLY 12/09/24 12/09/24 History mcg (50,000 unit) capsule escitalopram oxalate 20 mg tablet 20 mg PO HS 12/09/24 12/09/24 History hydroxyzine HCl 25 mg tablet 25 mg PO TID PRN anxiety 12/09/24 12/09/24 History levothyroxine 125 mcg tablet 125 mcg PO DAILY 12/09/24 12/09/24 History (Unithroid) lisdexamfetamine 20 mg capsule 20 mg PO DAILY 12/09/24 12/09/24 History olmesartan 20 mg tablet 20 mg PO DAILY 12/09/24 12/09/24 History Allergies Allergy/AdvReac Type Severity Reaction Status Date / Time No Known Allergies Allergy Verified 12/09/24 13:56 Exam Const: General: cooperative, healthy appearing and comfortable Nutritional Appearance: obese Orientation/consciousness: oriented to person, oriented to place and oriented to time HENMT: Head: normal to inspection Resp: Effort & Inspection: normal respiratory effort Cardio: Rate: regular rate Rhythm: regular rhythm Heart sounds: S1 normal heart sound present and S2 normal heart sound present GI: Inspection: normal to inspection : External Female Exam: normal external appearance Speculum Exam - Vagina: normal appearance of the vagina Speculum Exam - Cervix: normal appearance of the cervix Bimanual exam- vagina & uterus: enlarged and Uterine tenderness Bimanual Exam- Adnexa, other: normal adnexae Assessment and Plan Assessment and plan (1) Pelvic pain: Code(s): R10.2 - Pelvic and perineal pain Status: Acute (2) Vaginal bleeding: Code(s): N93.9 - Abnormal uterine and vaginal bleeding, unspecified Status: Acute Plan Proceed with robotic total vaginal hysterectomy and bilateral salpingectomy
[2024-12-19] VITALS (9 sets, daily range): BP systolic 101–146; BP diastolic 61–86; PULSE 63–91; RESP 12–20; TEMP 36.1–36.9; O2SAT 96–100
--- NOTE | 2024-12-19 06:50 | WPDHPUPDATE1 ---
History and Physical Update Update Date/Time: 12/19/24 06:50 History and Physical has been reviewed, including an updated exam of the patient. There are NO changes in the patient's condition. Risks, benefits, and alternatives have been discussed and questions answered. Patient agrees to proceed with procedure.
--- NOTE | 2024-12-19 07:08 | P.PNAN_ITS ---
Anes - Initial Pre Proc Eval Procedure: Operation Date: 12/19/24 11:30 Proposed Procedures p Robotic Assisted Total Vaginal Hysterectomy with Bilateral Salpingectomy - Palmer Sanchez MD <Juan Lee, DO - Last Filed: 12/19/24 07:09> Date/Time: 12/19/24 07:08 <Juan Lee, DO - Last Filed: 12/19/24 07:09> Surgeon: Palmer Sanchez MD <Juan Lee, DO - Last Filed: 12/19/24 07:09> Pre Op Diagnosis: pelvic pain, heavy vag bleeding, dyspareunia <Juan Lee DO - Last Filed: 12/19/24 07:09> Patient Data Age: 34 Gender: F Height: 1.7 m Weight: 129.4 kg <Juan Lee DO - Last Filed: 12/19/24 07:09> Allergies Allergy/AdvReac Type Severity Reaction Status Date / Time No Known Allergies Allergy Verified 12/19/24 09:32 <Juan Lee, DO - Last Filed: 12/19/24 07:09> Home Medications ?Medication ?Instructions ?Recorded ?Confirmed ?Type ergocalciferol (vitamin D2) 1,250 1,250 mcg PO WEEKLY 12/09/24 12/19/24 History mcg (50,000 unit) capsule escitalopram oxalate 20 mg tablet 20 mg PO HS 12/09/24 12/19/24 History hydroxyzine HCl 25 mg tablet 25 mg PO TID PRN anxiety 12/09/24 12/09/24 History levothyroxine 125 mcg tablet 125 mcg PO DAILY 12/09/24 12/19/24 History (Unithroid) lisdexamfetamine 20 mg capsule 20 mg PO DAILY 12/09/24 12/19/24 History olmesartan 20 mg tablet 20 mg PO DAILY 12/09/24 0801/15 History hydrocodone 5 mg-acetaminophen 325 1 tablet PO Q4H PRN pain #20 tabs 12/19/24 Rx mg tablet <Juan Lee, DO - Last Filed: 12/19/24 07:09> Patient hx anesthesia problems: none <Pamler Conrad MD - Last Filed: 12/19/24 10:23> Family hx anesthesia problems: none <Palmer Conrad MD - Last Filed: 12/19/24 10:23> Results Review: All pre-operative results and documents have been reviewed as part of the pre-operative evaluation. <Juan Lee DO - Last Filed: 12/19/24 07:09> PMFSH Past Medical History Medical History: Medical History Hypothyroidism Hx of migraines Anxiety HTN (hypertension) <Juan Lee DO - Last Filed: 12/19/24 07:09> Surgical History Surgical History: Surgical History Hx laparoscopic cholecystectomy History of <Juan Lee DO - Last Filed: 12/19/24 07:09> Family History Family History: Family History Father FH: cholecystectomy Hypertension History of blood clots Grandparent Heart attack FH: cholecystectomy Cancer Hypertension Cerebrovascular accident Mother FH: cholecystectomy <Juan Lee DO - Last Filed: 12/19/24 07:09> Social History Social History: Social History Smoking packs per day: 1 Smoking cigarettes per day: 20.0 Years smoked: 5 Smoking pack-years: 5.00 Smoking status: Current every day smoker Tobacco type: cigarettes Second hand tobacco smoke exposure: Yes Alcohol intake: never Substance use: never Living arrangements: with family Occupation/Education: occupation 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 Gender identity (if verbalized by the patient): Female Spiritual care concerns: No <Juan Lee DO - Last Filed: 12/19/24 07:09> Anes - Eval Final PreProcedure Day of Procedure 12/19/24 07:08 <Juan Lee DO - Last Filed: 12/19/24 07:09> Patient weight: morbidly obese <Palmer Conrad MD - Last Filed: 12/19/24 10:23> Heart: regular rate and rhythm <Palmer Conrad MD - Last Filed: 12/19/24 10:23> Lungs: clear to auscultation <Palmer Conrad MD - Last Filed: 12/19/24 10:23> Airway: Mallampati scale class II <Palmer Conrad MD - Last Filed: 12/19/24 10:23> Neurological: alert and oriented <Palmer Conrad MD - Last Filed: 12/19/24 10:23> Last oral intake: >/= 8 hours <Palmer Conrad MD - Last Filed: 12/19/24 10:23> ASA classification: III <Palmer Conrad MD - Last Filed: 12/19/24 10:23> Emergent: no <Palmer Conrad MD - Last Filed: 12/19/24 10:23> Anesthetic plan: proceed <Palmer Conrad MD - Last Filed: 12/19/24 10:23> Anesthesia type and monitoring: general ETT and standard monitoring <Palmer Conrad MD - Last Filed: 12/19/24 10:23> Results Review: All pre-operative results and documents have been reviewed as part of the pre-operative evaluation. <Juan Lee DO - Last Filed: 12/19/24 07:09> Informed Consent: The patient's anesthetic plan and its attendant risks and benefits were discussed with the patient/family/POA. Questions were solicited and answers provided to the satisfaction of the patient/family/POA. <Juan Lee DO - Last Filed: 12/19/24 07:09>
--- OUTSIDE RECORDS SUMMARY | 2024-12-19 09:19 | XMS_ITS | Clinical Summary ---
Author Organization [facility] Communication Intelligence Address [address] [place] [address] Care Team Providers Care Edi Manager Name Role Phone Ronald Renee MD Unavailable [phone] Source Comments [facility] Communication [employer],non-owned Affiliates and Associated Physician Practices is amultiple site organization consisting of ambulatory clinics and hospital sitesin [place], [place], [place] and [place]. This disclosure is being madepursuant to the Care Everywhere program and may not contain all information available regarding this patient. Last updated 18.[facility] [employer] Allergies Active Allergy Reactions Criticality Noted Date [...] MCG/ACT nasal sprayIndication s:Acute non-recurrent maxillary sinusitis [place] 2 sprays into each nostril once daily [...] Comments Blood Pressure 110/68 03/19/2018 11:58 AM SALON SHAMPOO ASSISTANT Pulse 76 03/19/2018 11:58 AM SALON SHAMPOO ASSISTANT Temperature 36.8 C (98.2 F) 03/19/2018 11:58 AM SALON SHAMPOO ASSISTANT Respiratory Rate 16 03/19/2018 11:58 AM SALON SHAMPOO ASSISTANT Oxygen Saturation 98% 03/19/2018 11:58 AM SALON SHAMPOO ASSISTANT Inhaled Oxygen Concentration - - Weight 105.7 kg (233 lb) 03/19/2018 11:58 AM SALON SHAMPOO ASSISTANT Height 170.2 cm (5' 7) 03/19/2018 11:58 AM SALON SHAMPOO ASSISTANT Body Mass Index 36.49 03/19/2018 11:58 AM SALON SHAMPOO ASSISTANT Plan of Treatment Health Maintenance Due Date [...] age to complete this topic Insurance [facility] * Guarantor: NORMA FERRARI Account Type Relation to Patient Date of Phone Billing Address Personal/Family 1990 [facility] [place] [address] [facility] Advance Directives * Full Code (Latest Code Status on File) Date Activated Date Inactivated Comments 02/11/2016 7:55 PM 02/14/2016 2:23 PM * Full Code Date Activated Date Inactivated Comments 02/11/2016 1:03 PM 02/11/2016 7:55 PM * Full Code Date Activated Date Inactivated Comments 01/22/2016 9:15 PM 01/22/2016 11:05 PM Care Teams Edi Manager Relationship Specialty Start Date End Date Ronald Renee MD [address] [place] [address] Gynecology 08/13/15
--- OUTSIDE RECORDS SUMMARY | 2024-12-19 09:19 | XMS_ITS | Clinical Summary ---
Author Organization [facility] Address [address] [place] [address] Phone Care Team Providers Care Utility Assembler Name Role Phone Maral Montanez MD Primary [...] Health Maintenance Due Date Last Done Comments HEPATITIS B VACCINES (1 of 3 - 19+ 3-dose series) 2008 HPV/Cotest (21-29) 2010 HPV VACCINES (1 - 3-dose SCDM series) 2016 HPV/Cotest (30-65) 11/17/2019 CERVICAL CANCER SCREENING 01/06/2022 [...] STI screening follows ACOG guidelines(PB 168, 140, CYW223). See individual assays for performing site location. CLINICAL INFORMATION 01/09/2019 10:22 AM CDT [facility] LAST MENSTRUAL PERIOD Information not [...] computer assisted technology. 01/09/2019 10:22 AM CDT [facility] APPRAISAL TECHNICIAN: SEE COMMENT 2018 10:22 AM CDT [facility] Comment: MATT RAY(ASCP) CT screening location: [place] [address] [place] [address] EXPLANATORY NOTE SEE COMMENT 019 10:22 AM CDT [facility] Comment: EXPLANATORY NOTE: The Pap [...] Performing Organization Information: Site ID: [place] [facility] Address: [address] [address] Director: Ezequiel Rivera D.O., MPH Site ID: [place] [facility] Address: [address] [address] Director: Darren Guaman Min Wagner MD PATHOLOGY/CYTOLOGY ORDERABLE S Final Result [facility] [phone] from Last 3 Months or Most Recently Relevant to Health Maintenance Insurance PREFERRED Care Teams Utility Assembler Relationship Specialty Start Date End Date Maral Montanez MD PCP - General Internal Medicine 01/15/20
--- OUTSIDE RECORDS SUMMARY | 2024-12-19 09:19 | XMS_ITS | Clinical Summary ---
Author Organization [facility] Address [address] [place] [address] Phone Care Team Providers Care Business Affairs Manager Name Role Phone Maral Montanez MD Primary [...] complete this topic Insurance MEDICA Care Teams Business Affairs Manager Relationship Specialty Start Date End Date Maral Montanez MD [address] [place] [address] [place] [address] PCP - General Internal Medicine 08/06/20
--- OUTSIDE RECORDS SUMMARY | 2024-12-19 09:20 | XMS_ITS | Patient Health Record ---
Author Organization [facility] [employer] [facility] Address [address] [place] [address] Care Team Providers Care Diplomatic Interpreter Name Role Phone Gloria TATE, Bryanna Primary Care Provider Chaparrita Alejo Unavailable [phone] Estela Knapp Unavailable [phone] Sindy Ramsay Unavailable [phone] Allergies No Known Allergies Reason For Referral No Information Medications Medication SIG (Take, Route, Frequency, Duration) Notes Start Date End Date Status Escitalopram Oxalate 10 MG Tablet 1 tablet Orally Once a day; Duration: 30 days Active [place] Thyroid 15 MG Tablet 1 tablet on [...] Status: 7 01/09/2020 Section Notes: Lives in [place] with h usband of 9 yrs and their 2 kids. Grew up in [place], no siblings. 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 Lives in [place] with h usband of 9 yrs and their 2 kids. Grew up in [place], no siblings. 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 Lives in [place] with h usband of 9 yrs and their 2 kids. Grew up in [place], no siblings. 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 Lives in [place] with h usband of 9 yrs and their 2 kids. Grew up in [place], no siblings. 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 Lives in [place] with h usband of 9 yrs and their 2 kids. Grew up in [place], no siblings. 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 Lives in [place] with h usband of 9 yrs and their 2 kids. Grew up in [place], no siblings. 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 Lives [facility] [place] and their 2 kids. Grew up in [place], no siblings. Education/employment: high school. Lives in [place] with h usband of 9 yrs and their 2 kids. Grew up in [place], no siblings. 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 Lives in [place] with h usband of 9 yrs and their 2 kids. Grew up in [place], no siblings. 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 Problems Problem Type SNOMED Code ICD Code Onset Dates Problem Status W/U Status Risk Notes Problem Generalized anxiety disorder (22570230) Generalized anxiety disorder (F41.1) Active confirmed Problem Attention deficit hyperactivity disorder (869095642) ADHD (attention deficit hyperactivity disorder), combined type (F90.2) Active confirmed Problem Panic disorder (928919461) Panic attacks (F41.0) Active confirmed Problem Mild recurrent major depression (12374784) Mild recurrent major depression (F33.0) Active confirmed Problem Tobacco use (519504922) Nicotine use (Z72.0) Active confirmed Problem Essential hypertension (95344467) Benign essential HTN (I10) Active confirmed Vital Signs Heart Rate 79 /min 08/12/2024 117/79 Height-cm 170.18 cm 08/12/2024 117/79 Blood pressure diastolic 79 mm Hg 08/12/2024 117 /79 Weight-kg 134.72 kg 08/12/2024 117/79 Height 67 in 08/12/2024 117/79 Blood pressure systolic 117 mm Hg 08/12/2024 117/ 79 Weight 297 lbs 08/12/2024 117/79 BMI 46.51 kg/m2 08/12/2024 117/79 Encounters Encounter Location Date Provider Diagnosis [facility] [employer] [facility] [address] [facility] [address] [place] [address] 12/26/2023 Estela Hemann Generalized anxiety disorder F41.1 ; Mild recurrent major depression F33.0 ; Panic attacks F41.0 and ADHD (attention deficit hyperactivity disorder), combined type F90.2 [facility] [address] [place] [address] 01/16/2024 Estela Hemann Generalized anxiety disorder F41.1 ; Panic attacks F41.0 ; ADHD (attention deficit hyperactivity disorder), combined type F90.2 and Mild recurrent major depression F33.0 [facility] [address] [place] [address] 01/30/2024 Estela Hemann Generalized anxiety disorder F41.1 ; Panic attacks F41.0 ; ADHD (attention deficit hyperactivity disorder), combined type F90.2 and Mild recurrent major depression F33.0 [facility] [address] [facility] [address] [place] [address] 02/20/2024 Estela Hemann ADHD (attention deficit hyperactivity disorder), combined type F90.2 ; Generalized anxiety disorder F41.1 and Panic attacks F41.0 [facility] [address] [place] [address] 02/20/2024 Sindy Jazzyrikki Generalized anxiety disorder F41.1 ; Mild recurrent major depression F33.0 and Panic attacks F41.0 [facility] [address] [facility] [address] [place] [address] 03/05/2024 Estela Hemann Generalized anxiety disorder F41.1 ; ADHD (attention deficit hyperactivity disorder), combined type F90.2 ; Panic attacks F41.0 and Mild recurrent major depression F33.0 [facility] [address] [place] [address] 03/25/2024 Estela Hemann Generalized anxiety disorder F41.1 ; ADHD (attention deficit hyperactivity disorder), combined type F90.2 ; Panic attacks F41.0 and Mild recurrent major depression F33.0 [facility] [address] [place] [address] 05/21/2024 Chaparrita Reis [facility] [address] [place] [address] 07/01/2024 Chaparrita Reis [facility], [facility] [address] [place] [address] 08/12/2024 Estela Knapp Generalized anxiety disorder F41.1 ; ADHD (attention deficit hyperactivity disorder), combined type F90.2 ; Panic attacks F41.0 and Mild recurrent major depression F33.0 [place] [address] [address] 08/12/2024 Chaparrita Reis Generalized anxiety disorder F41.1 ; Panic attacks F41.0 ; ADHD (attention deficit hyperactivity disorder), combined type F90.2 ; Nicotine use Z72.0 ; Encounter for screening for depression Z13.31 ; Benign essential HTN I10 and Encounter for screening for cardiovascular disorders Z13.6 [place] [address] [facility] [address] [address] 03/25/2024 [place] [address] [address] [facility] [address] [address] 07/16/2024 Chaparrita Reis Generalized anxiety disorder F41.1 [place] [address] [address] 02/13/2024 Sindy Ramsay [place] [address] [address] 09/03/2024 Chaparrita Reis [place] [address] [address] [address] 09/03/2024 Chaparrita Reis [place] [address] [address] [address] 09/03/2024 Chaparrita Reis [facility], [place] [address] [address] 09/03/2024 Chaparrita Reis Assessments Encounter Date Diagnosis [...] Date Coverage End Date Umr [address] [address] [place] [address] [id number] NORMA FERRARI Self - patient is the insured 4 [employer] [address] [place] [address] [id number] NORMA FERRARI Self - patient is the insured 2024 Medical (General) History Medical History History ICD Code Attention deficit hyperactivity disorder , combined type vitamin D deficiency Past Psychiatric History: Anxiety Disord er undefined Surgical History Surgery Date(Month/Year) delivery (78237) 2 Cholecystectomy (32129882)
--- OUTSIDE RECORDS SUMMARY | 2024-12-19 09:20 | XMS_ITS | Clinical Summary ---
Author Organization [facility] [address] [facility] [place] [address] Care Team Providers Care Motion Picture Projectionist Apprentice Name Role Phone Goldy Mclaughlin MD Primary Care Provider + Palmer Pereira MD Unavailable [phone] Allergies Active Allergy Reactions Criticality Noted Date [...] patient's age to complete this topic Insurance [facility] Care Teams Motion Picture Projectionist Apprentice Relationship Specialty Start Date End Date Goldy Mclaughlin MD [address] [facility] [place] [address] PCP - General Internal Medicine 02/18/22 Palmer Pereira MD [address] [place] [address] 02/18/22
--- OUTSIDE RECORDS SUMMARY | 2024-12-19 09:20 | XMS_ITS | Patient Health Record ---
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, 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 confirmed Problem Vitamin D deficiency (91435915) Vitamin D deficiency, unspecified (E55.9) Active confirmed Problem Obesity (970911380) Obesity, unspecified (E66.9) Active confirmed Problem Irregular menstruation (35855605) Irregular menstruation, unspecified (N92.6) Active confirmed Problem Obstructive sleep apnea (69593847) Obstructive sleep apnea (G47.33) Active confirmed Vital Signs Heart Rate 86 /min 11/21/2024 Oximetry 97 % 06/03/2024 Blood pressure diastolic 84 mm Hg 11/21/2024 Weight-kg 128.01 kg 11/21/2024 Height 68 in 11/21/2024 Blood pressure systolic 123 mm Hg 11/21/2024 Weight 282.2 lbs 11/21/2024 BMI 42.9 kg/m2 11/21/2024 Encounters Encounter Location Date Provider Diagnosis [address] [id number] 03/08/2024 Provider Migration Obesity, unspecified E66.[address] [place] [address] [place] [address] 05/26/[address] [place] [address] [place] [address] 02/25/2024 Hannah Alamo Hypothyroidism, unspecified E03.9 ; Obesity, unspecified E66.9 ; Dietary counseling and surveillance Z71.3 ; Irregular menstruation, unspecified N92.6 ; Other fatigue R53.83 and Nontoxic goiter, unspecified E04.[address] [place] [address] [place] [address] 04/21/2024 Hannah Alamo Hypothyroidism, unspecified E03.9 ; Obesity, unspecified E66.9 ; Vitamin D deficiency, unspecified E55.9 ; Vitamin B12 deficiency anemia, unspecified D51.9 and Dietary counseling and surveillance Z71.[address] Alamo [address] [place] [address] 06/03/2024 Hannah Alamo Hypothyroidism, unspecified E03.9 ; Obesity, unspecified E66.9 ; Obstructive sleep apnea G47.33 and Dietary counseling and surveillance Z71.[address] Alamo [address] [place] [address] 11/21/2024 Hannah Alamo Hypothyroidism, unspecified E03.9 ; Vitamin D deficiency, unspecified E55.9 ; Obesity, unspecified E66.9 and Dietary counseling and surveillance Z71.[address] [address] 04/20/[address] [address] 06/17/2024 Hannah Alamo [address] [address] 08/21/2024 Hannah Alamo [address] [address] 11/21/2024 Hannah Alamo Hypothyroidism, unspecified E03.9 ; Vitamin D deficiency, unspecified E55.9 and Obesity, unspecified E66.[address] 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 Follow-up: Schedule a follow-up appointment in 6 weeks. Spent 25 minutes preparing to see the patient (ex review of tests/chart), obtaining and / or reviewing separately obtained history, performing a medically appropriate examination and/or evaluation, counseling and educating the patient/family/caregiver, ordering medications, tests, or procedures, referring and communicating with other health healthcare marketer, documenting clinical information in the electronic or [...] procedures, referring and communicating with other health healthcare marketer, documenting clinical information in the electronic or [...] progesterone).Plan:- Await scheduling of hysterectomy- Coordinate with soccer ball assembler regarding timing of procedure and post-operative hormone management Spent 25 minutes preparing to see the patient (ex review of tests/chart), obtaining and / or reviewing separately obtained history, performing a medically appropriate examination and/or evaluation, counseling and educating the patient/family/caregiver, ordering medications, tests, or procedures, referring and communicating with other health healthcare marketer, documenting clinical information in the electronic or other health record, independently interpreting results and communicating results to the patient/family/caregiver and care coordinating patient plan. Patient alert and oriented x 4 and aware of discussion noted above and in agreeance to plan in management of hypothyroidism, vit D def, obesity/weight management. Plan Of Treatment Pending Test Test Name Order Date Sleep Study [facility] [id number] 06/03/2024 ultrasound thyroid 02/25/2024 Next Appt Details Provider Name:Hannah Alamo, 03:20:00 PM, [address] [place] [address], [phone], Insurance Providers Payer Name Payer Address Payer Phone Subscriber Number Group Number Insured Name Patient Relationship to Insured Coverage Start Date Coverage End Date [facility] [address] [place] [address] [id number] Norma Benítez Self - patient is the insured Medical (General) History Medical History History ICD Code hypertension general anxiety depression Surgical History Surgery Date(Month/Year) cholecystectomy 2016 Hospitalization History Reason Date(Month/Year) 2015 2019
--- OUTSIDE RECORDS SUMMARY | 2024-12-19 09:20 | XMS_ITS | Patient Health Record ---
Author Organization [facility] [employer] [facility] Address [address] [address] Care Team Providers Care Red Hat Engineer Name Role Phone Hannah Alamo Primary Care Provider [phone] Migration, Provider Unavailable Unavailable Reason For Referral [...] 90 days 04/21/2024 Unknown Ergocalciferol 1.25 MG (48898 UT) 1 capsule Orally weekly for 84 days 04/21/2024 Unknown Escitalopram Oxalate 10 MG 1 tab(s) oral ly once a day Unknown Propranolol HCl 10 MG 1 tab(s) orally 2 times a day Unknown [place] Thyroid 15 MG 1 tab(s) orally [...] Status Risk Notes Problem Vitamin D deficiency (68728625) Vitamin D deficiency, unspecified (E55.9) Active confirmed Problem Hypothyroidism (20431087) Hypothyroidism, unspecified (E03.9) Active confirmed Problem Obesity (970699975) Obesity, unspecified (E66.9) Active confirmed Problem Non-toxic goiter (115537531) Nontoxic goiter, 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 confirmed Problem Irregular menstruation (47016923) Irregular menstruation, unspecified (N92.6) Active confirmed Vital Signs Heart Rate 76 /min 04/21/2024 SPO2: 97% Blood pressure diastolic 83 mm Hg 04/21/2024 SPO 2: 97% Height 68 in 04/21/2024 SPO2: 97% Blood pressure systolic 129 mm Hg 04/21/2024 SPO2 : 97% Weight 280.8 lbs 04/21/2024 SPO2: 97% BMI 42.69 kg/m2 04/21/2024 SPO2: 97% Encounters Encounter Location Date Provider Diagnosis [facility] [address] [place] [address] 04/21/2024 Hannah Alamo Hypothyroidism, unspecified E03.9 ; Obesity, unspecified E66.9 ; Vitamin D deficiency, unspecified E55.9 ; Vitamin B12 deficiency anemia, unspecified D51.9 and Dietary counseling and surveillance Z71.3 [facility] [place] [address] 06/03/2024 Hannah Alamo [address] [address] 03/08/2024 Provider Migration Obesity, unspecified E66.9 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 Patient alert [...] Ultrasound results- Plan: Obtain ultrasound results from [place]. Follow-up: Schedule a follow-up appointment in 6 weeks. Spent 25 minutes preparing to see the patient (ex review of tests/chart), obtaining and / or reviewing separately obtained history, performing a medically appropriate examination and/or evaluation, counseling and educating the patient/family/managed care nurse, ordering medications, tests, or procedures, referring and communicating with other health date night caregiver, documenting clinical information in the electronic or other health record, independently interpreting results and communicating results to the patient/family/managed care nurse and care coordinating patient plan. Patient alert [...]
[2024-12-19] MEDS: ACETAMINOPHEN 500 MG TABLET 1000 MG PO ×3 (09:44→23:03)
[2024-12-19] MEDS: LACTATED RINGERS 1,000 ML 30 ML IV CONT ×2 (09:50→12:20)
[2024-12-19] MEDS: KETOROLAC 15 MG/ML VIAL (*BKC) IV PUSH (09:53)
[2024-12-19 10:19] LABS: BEDSIDEPREGUCG Negative (Negative)
[2024-12-19] MEDS: ceFAZolin 3 GM/D5W 100 ML 100 ML IVPB (11:06)
--- NOTE | 2024-12-19 11:42 | S_PTH ---
PATIENT: Norma Benítez LOC: [facility] U#:[id number] AGE/SX: 34/F ROOM: RE12/19/[address]: Palmer Sanchez MD : 1990 BED: DIS: 12/20/2024 SPEC #: [id number] RECD: 12/19/24 12:42 STATUS: DELIA RESunshine #: [id number] FANTA: 12/19/24 11:[address]: Palmer Stein DEPT: [facility] Surgical RECD BY: Rose Zimmerman ENTERED: 12/19/24 12:42 SP TYPE: Surgical OTHR DR: Bryanna Castro, CEPHALOMETRIC TECHNICIAN Tissues: A - Uterus Procedures: Hematoxylin and Eosin Stain Gross and Microscopic Level 5
--- NOTE | 2024-12-19 12:09 | P.OP_ITS ---
Procedure Note - Detailed Date of Procedure 12/19/24 Pre-op Diagnosis pelvic pain, heavy vag bleeding, dyspareunia Post-op Diagnosis Same Procedure Performed Robotic total vaginal hysterectomy bilateral salpingectomy Surgeon Palmer Sanchez MD Anesthesia General Indications This is a 34-year-old female with severe pelvic pain dyspareunia Findings Enlarged uterus tissue. Normal-appearing ovaries and Tubes. Description of Procedure The patient was prepped draped in the normal sterile fashion placed dorsal lithotomy position. Under excellent general endotracheal anesthesia weighted speculum placed posterior fornix vagina. Anterior lip of the cervix grasped with a single-tooth tenaculum. The uterus sounded to 11cm. Serial dilatation with fragmented dilators performed followed by passage of 10. FANG and the 3. Cold cup. Next the 16 Syriac catheter placed in bladder drained clear urine. The weighted speculum and single-tooth removed. The gloves were changed. A supraumbilical incision made the Veress needle passed in the abdomen. Abdomen filled with CO2 gas [id number]. The 8mm trocar advanced under direct visualization assuring no injury patient placed in Trendelenburg and right left lateral quadrant incision made. 8mm trocars advanced under direct visualization assuring no injury. The robot was docked. Attention was turned to the child and family counselor. The left round ligament was grasped, bu rned, cut. Anteriorly a bladder flap was formed by sharply dissecting the peritoneum and reflecting the bladder caudally away from the cervix uterus the opposite round ligament which was clamped, burned, cut. Next the left fallopian tube was sharply dissected away from the ovarian complex and left attached to its uterine origin. In similar fashion the right fallopian tube was sharply dissected away from the ovarian complex and left at its origin of the uterus. The left utero-ovarian ligament was skeletonized to conserve the left ovary. This was clamped, burned, cut and brought to the level of previous cut round ligament. In similar fashion conserving the right ovary, the utero-ovarian ligament was clamped, burned, cut brought to the level of previously cut round ligament. Next cardinal broad ligaments on the left were serially skeletonized clamping burning cutting and bringing this down the lateral edge of the uterus hugging it tightly until uterine vessels could be seen these were large and tortuous. These were individually clamped, burned, cut. In similar fashion on the right the cardinal broad ligaments were skeletonized clamping burning cutting and hugging the cervix uterus until the uterine vessels could be seen on the right. These were individually clamped, burned, cut. Blanching the uterus was noted and a colpotomy incision was made. Cervix uterus tubes removed through the vagina. The vagina then closed with continuous running 0V lock from lateral edge to lateral edge back to the midline. Hemostasis was assured. Blood loss estimated [id number]. The instruments which the gas removed from the abdomen. The incisions on the uterus then were closed with 4 Monocryl and glue. The patient was awakened went recovery in satisfactory condition. All sponge, needle, instrument counts were correct. There were no immediate complications noted Estimated Blood Loss 25 Drains No Packing No Pathology Yes Complications No immediate complications Condition Stable Disposition PACU
--- NOTE | 2024-12-19 12:14 | PM.DS ---
DS: Admitting Diagnosis Discharge Date 12/20/2024 Admitting Diagnosis Vaginal bleeding/pelvic pain DS: Discharge Diagnosis Discharge Diagnosis (1) Vaginal bleeding: Code(s): N93.9 - Abnormal uterine and vaginal bleeding, unspecified Status: Acute (2) Pelvic pain: Code(s): R10.2 - Pelvic and perineal pain Status: Acute DS: Summary Hospital Course Reason for hospitalization: Patient was admitted for robotic total vaginectomy bilateral salpingectomy in 12/19/2024 Hospital Course: The patient's hospital course unremarkable. She remained afebrile. She was up, voiding without difficulty, eating regular diet, ambulating, and generally without complaints. Time Spent with Patient Time attestation: Total time spent providing and/or coordinating discharge services: Exam Const: General: cooperative, healthy appearing and comfortable Nutritional Appearance: average body habitus Orientation/consciousness: oriented to person, oriented to place and oriented to time HENMT: Head: normal to inspection Resp: Effort & Inspection: normal respiratory effort Cardio: Rate: regular rate Rhythm: regular rhythm Heart sounds: S1 normal heart sound present and S2 normal heart sound present GI: Inspection: normal to inspection and incision (Wounds are clean dry and intact) DS: Data Data Completed and Pending Pending studies at discharge: Pending at discharge 12/19/24 11:42 Surgical [PTH] Routine Labs on day of discharge: Labs from last 24 hours 12/19/24 09:29 POC Urine HCG, Qual Negative Discharge Plan Discharge Patient Disposition: Home Patient Language: Yoruba Stand Alone Forms: General Discharge Instructions Follow-up/Referrals: Palmer Stein MD [Physician, [employer]] Discharge Medications: New hydrocodone-acetaminophen 5-325 mg tablet 1 tablet PO Q4H PRN (Reason: pain) Qty: 20 0RF Continued ergocalciferol (vitamin D2) 1,250 mcg (50,000 unit) capsule 1,250 mcg PO WEEKLY Patient Comments: TAKE ON MONDAYS escitalopram oxalate 20 mg tablet 20 mg PO HS hydroxyzine HCl 25 mg tablet 25 mg PO TID PRN (Reason: anxiety) levothyroxine [Unithroid] 125 mcg tablet 125 mcg PO DAILY lisdexamfetamine 20 mg capsule 20 mg PO DAILY olmesartan 20 mg tablet 20 mg PO DAILY
--- NOTE | 2024-12-19 13:15 | PC.NURSE ---
This patient, Norma Benítez, was received from PACU on 12/19/24 at 1315. Patient/family oriented to unit policies and routines.
[2024-12-19] MEDS: SIMETHICONE 80 MG TAB.CHEW PO (13:50)
[2024-12-19] MEDS: DOCUSATE SODIUM 100 MG CAPSULE PO (16:33)
[2024-12-19] MEDS: KETOROLAC 30 MG/ML VIAL (*BKC) IV PUSH ×2 (16:34→23:04)
[2024-12-19] MEDS: ESCITALOPRAM OXALATE 10 MG TABLET 20 MG PO (20:43)
[2024-12-20 04:04] LABS: Hematocrit 37.7 % (37.0-47.0); Hemoglobin 12.1 g/dL (12.0-15.0); Immature Granulocyte Percent A 0.4 % (0-0.5); Lymphocytes Absolute Auto 1.02 K/mm3 (0.9-3.2); Mean Corpuscular HGB Conc 32.1 g/dl (32-36); Mean Corpuscular Hemoglobin 27.5 pg (26-34); Mean Corpuscular Volume 85.7 fl (80-100); Nucleated Red Blood Cells Absolute Auto 0.000 K/mm3 (0.0-0.012); Nucleated Red Blood Cells Perc 0.0 % (0.0-0.2); Platelet Count Result 343 k/mm3 (150-375); Red Blood Count 4.40 M/mm3 (4.2-5.4); White Blood Count 12.2 K/mm3 (4.5-10.0)
[2024-12-20 04:42] VITALS: BP 134/72; PULSE 91; RESP 18; TEMP 36.7; O2SAT 99
[2024-12-20] MEDS: KETOROLAC 30 MG/ML VIAL (*BKC) IV PUSH (04:42)
[2024-12-20] MEDS: ACETAMINOPHEN 500 MG TABLET 1000 MG PO (04:42)
[2024-12-20] MEDS: SIMETHICONE 80 MG TAB.CHEW PO (07:00)
[2024-12-20] MEDS: DOCUSATE SODIUM 100 MG CAPSULE PO (07:00)
[2024-12-20 08:38] VITALS: BP 126/78; PULSE 68; RESP 16; TEMP 36.2; O2SAT 98
--- NOTE | 2024-12-20 08:52 | P.PNAN_ITS ---
Anes - Prog Note Post-Op Date/Time: 12/20/24 08:52 Cardiovascular status: normal Respiratory status: normal Airway patency: baseline Mental status: baseline Post-Op hydration status: normal Vital Signs: Last Vital Signs Temp 97.2 F L 12/20/24 08:38 Pulse 68 12/20/24 08:38 Resp 16 12/20/24 08:38 BP 126/78 12/20/24 08:38 Pulse Ox 98 12/20/24 08:38 O2 Del Method Room Air 12/20/24 04:42 O2 Flow Rate 10 12/19/24 12:30 Pain Score (VAS): 2 I/O: Intake & Output 12/19/24 12/20/24 12/20/24 23:59 07:59 15:59 Intake Total 500 Output Total 600 Balance -100 Laboratory Tests 12/20/24 03:23 12/19/24 12/20/24 09:29 03:23 WBC 12.2 H RBC 4.40 Hgb 12.1 Hct 37.7 MCV 85.7 MCH 27.5 MCHC 32.1 RDW 13.1 Plt Count 343 MPV 10.0 Immature Gran % (Auto) 0.4 Neut % (Auto) 86.4 H Lymph % (Auto) 8.4 L [place] % (Auto) 4.7 Eos % (Auto) 0.0 Baso % (Auto) 0.1 L Lymph # (Auto) 1.02 [place] # (Auto) 0.6 Eos # (Auto) 0.0 Baso # (Auto) 0.0 Abs Immat Gran (auto) 0.05 H Absolute Neuts (auto) 10.6 H Absolute Nucleated RBC 0.000 Nucleated RBC % 0.0 POC Urine HCG, Qual Negative Post-procedural complaints: none Patient Feedback: Patient satisfied with anesthetic care.
[2024-12-20] MEDS: ENOXAPARIN 40 MG/0.4 ML SYRINGE SUB-Q (09:17)
--- NOTE | 2024-12-20 10:08 | PM.GYNPNOP ---
CONTINUOUS PICKLING [employer] PICKLER - A/P Postoperative Procedures: Procedures Operation Date: 12/19/24 11:30 Actual Procedure Side Surgeon p Robotic Assisted Total Vaginal Hysterectomy with Bilateral Salpingectomy Bilateral Palmer Sanchez MD Postoperative day: 1 Postoperative status: doing well Postoperative plan: routine post-op care and discharge Time Spent With Patient Time: Total time spent is greater than 50% in coordination of care (as documented) at patient's floor/unit and/or counseling patient: Time with patient: less than 15 minutes CONTINUOUS PICKLING [employer] PICKLER- PN:Subj Post-Op Subjective Date/time seen: 12/20/24 10:08 Subjective: patient has no complaints, pain is well controlled and patient is tolerating oral intake Exam Narrative: incisions c/d/i abdomen soft, nt, nd CONTINUOUS PICKLING [employer] PICKLER - PN: Obj Data Vital Signs Vital Signs: Vital Signs - 24 hr 12/19/24 12:20 12/19/24 12:30 12/19/24 12:45 Temperature 97.9 F Pulse Rate 91 82 87 Respiratory Rate 15 12 14 Blood Pressure 111/62 119/64 136/72 Pulse Oximetry 100 100 100 Oxygen Delivery Simple Face Mask Simple Face Mask Room Air Oxygen Flow Rate 10 10 12/19/24 13:00 12/19/24 13:50 12/19/24 16:45 Temperature 98.2 F 97.0 F L Pulse Rate 83 82 88 Respiratory Rate 12 18 16 Blood Pressure 123/68 101/61 132/76 Pulse Oximetry 96 96 99 Oxygen Delivery Room Air Oxygen Flow Rate 12/19/24 19:25 12/19/24 19:25 12/19/24 23:03 Temperature 98.4 F 97.3 F L Pulse Rate 63 86 Respiratory Rate 16 18 Blood Pressure 126/77 134/80 Pulse Oximetry 99 99 Oxygen Delivery Room Air Oxygen Flow Rate 12/20/24 04:42 12/20/24 04:42 12/20/24 08:38 Temperature 98.1 F 97.2 F L Pulse Rate 91 68 Respiratory Rate 18 16 Blood Pressure 134/72 126/78 Pulse Oximetry 99 98 Oxygen Delivery Room Air Oxygen Flow Rate Intake/Output Intake/Output: Intake & Output 12/17/24 12/18/24 12/19/24 12/20/24 23:59 23:59 23:59 23:59 Intake Total 1300 Output Total 800 Balance 500 Meds/Results Medications: Active Medications Generic Name Dose Route Start Last Admin Trade Name Freq PRN Reason Stop Dose Admin Acetaminophen 1,000 mg 12/19/24 18:00 12/20/24 04:42 Acetaminophen 500 Mg Tablet PO 1,000 mg Q6HR [facility] Administration Docusate Sodium 100 mg 12/19/24 17:00 12/20/24 07:00 Docusate Sodium 100 Mg Capsule PO 100 mg BID [facility] Administration Enoxaparin Sodium 40 mg 12/20/24 09:00 12/20/24 09:17 Enoxaparin 40 Mg/0.4 Ml Syringe SUB-Q 40 mg DAILY [facility] Administration Escitalopram Oxalate 20 mg 12/19/24 21:00 12/19/24 20:43 Escitalopram Oxalate 10 Mg Tablet PO 20 mg HS [facility] Administration Ibuprofen 600 mg 12/20/24 12:00 Ibuprofen 600 Mg Tablet PO Q6HR [facility] Naloxone HCl 0.1 mg 12/19/24 13:07 Naloxone Hcl 0.4 Mg/Ml Vial IV PUSH Q2M PRN Respiratory rate less than 10 Ondansetron HCl 4 mg 12/19/24 13:07 Ondansetron Inj 4 Mg/2 Ml Vial IV PUSH Q6H PRN Nausea And Vomiting Oxycodone HCl 5 mg 12/19/24 13:07 Oxycodone Hcl (*Crx) 5 Mg Tab Ir PO Q4H PRN Pain Rated 4-6 Oxycodone HCl 10 mg 12/19/24 13:07 Oxycodone Hcl (*Crx) 5 Mg Tab Ir PO Q6H PRN Pain Rated 7-10 Simethicone 80 mg 12/19/24 17:00 12/20/24 07:00 Simethicone 80 Mg Tab.Chew PO 80 mg TIDWM PARISA Administration Labs 12/20/24 03:23 Labs: Laboratory Results - last 24 hr 12/19/24 12/20/24 09:29 03:23 WBC 12.2 H RBC 4.40 Hgb 12.1 Hct 37.7 MCV 85.7 MCH 27.5 MCHC 32.1 RDW 13.1 Plt Count 343 MPV 10.0 Immature Gran % (Auto) 0.4 Neut % (Auto) 86.4 H Lymph % (Auto) 8.4 L [place] % (Auto) 4.7 Eos % (Auto) 0.0 Baso % (Auto) 0.1 L Lymph # (Auto) 1.02 [place] # (Auto) 0.6 Eos # (Auto) 0.0 Baso # (Auto) 0.0 Abs Immat Gran (auto) 0.05 H Absolute Neuts (auto) 10.6 H Absolute Nucleated RBC 0.000 Nucleated RBC % 0.0 POC Urine HCG, Qual Negative
== END 2024-12-20 10:30 | disposition home or self-care (01) ==
LOC: ANHSURGERY 09:15 → ANHOB2 13:22
PROVIDERS: PCP Nurse Practitioner; Visit Provider Obstetrics & Gynecology
PROC: (CPT 58552; principal; 2024-12-19 11:30)
DX: N93.9 Abnormal uterine and vaginal bleeding, unspecified (principal); E03.9 Hypothyroidism, unspecified; I10 Essential (primary) hypertension; F41.9 Anxiety disorder, unspecified; F17.210 Nicotine dependence, cigarettes, uncomplicated; Z79.891 Long term (current) use of opiate analgesic; Z98.890 Other specified postprocedural states; Z90.49 Acquired absence of other specified parts of digestive tract; Z80.9 Family history of malignant neoplasm, unspecified; Z82.49 Family history of ischemic heart disease and other diseases of the circulatory system
CPT/HCPCS: 58552; S2900; 36415; 85025; 88307; 99199; A9270; J0690; J1100; J1171; J1650; J1885; J2003; J2250; J2405; J2704; J3010; J7120